=== PATIENT | female | born 1975 | race Caucasian/White ===

== ENCOUNTER 2016-07-08 09:34 | Emergency (ER) | payer BC ==
[2016-07-08 09:42] VITALS: TEMP 97.8
[2016-07-08] MEDS ORDERED: Acetaminophen-Codeine 300-30mg TAB PO STA (10:03)
[2016-07-08] MEDS ORDERED: RX INFO: IV CONTRAST WAS GIVEN 1 EACH MISC MISCELLANE PRN (11:50)
--- NOTE | 2016-07-08 12:14 | ED ---
General Adult HPI - General Chief complaint: Neck Pain/Injury Stated complaint: neck pain Time Seen by Provider: 07/08/16 09:49 Source: patient, RN notes reviewed Mode of arrival: ambulatory Limitations: no limitations - History of Present Illness Initial comments: 41-year-old female presents emergency Department chief complaint neck pain, sore throat. Patient states has been present since yesterday. Patient states difficult swallow. Patient denies fever, chills. Patient states that she notices sores in her mouth. Bit states primarily her pain is in her anterior neck. She denies any known thyroid disorder. Patient denies headache, dizziness, neck stiffness. - Related Data Home Medications Medication Instructions Recorded Confirmed Baclofen [Lioresal] 10 mg PO BID 07/08/16 07/08/16 DULoxetine HCL [Cymbalta] 60 mg PO BID 07/08/16 07/08/16 Ibuprofen [Motrin] 800 mg PO TID 07/08/16 07/08/16 Medroxyprogesterone Acetate 150 mg IM Q90D 07/08/16 07/08/16 [Depo-Provera] Modafinil [Provigil] 200 mg PO DAILY 07/08/16 07/08/16 Tysabri 1 applic IV DIRECTED 07/08/16 07/08/16 Zolpidem Tartrate 10 mg PO HS 07/08/16 07/08/16 Previous Rx's Medication Instructions Recorded Acetaminophen-Codeine 300-30mg 1 tab PO Q4H PRN #20 tablet 07/08/16 [Tylenol #3] Amoxicillin/Potassium Clav 1 tab PO Q12HR #20 tab 07/08/16 [Augmentin 875-125 Tablet] Allergies Allergy/AdvReac Type Severity Reaction Status Date / Time No Known Allergies Allergy Verified 07/08/16 13:09 Review of Systems ROS Statement: Those systems with pertinent positive or pertinent negative responses have been documented in the HPI. ROS Other: All systems not noted in ROS Statement are negative. Past Medical History Additional Past Medical History / Comment(s): MS History of Any Multi-Drug Resistant Organisms: None Reported Past Surgical History: No Surgical Hx Reported Past Psychological History: No Psychological Hx Reported Smoking Status: Current every day smoker Past Alcohol Use History: None Reported Past Drug Use History: None Reported General Exam Limitations: no limitations General appearance: alert, in no apparent distress Head exam: Present: atraumatic, normocephalic, normal inspection Eye exam: Present: normal appearance, PERRL, EOMI. Absent: scleral icterus, conjunctival injection, periorbital swelling ENT exam: Present: mucous membranes moist, TM's normal bilaterally. Absent: normal exam (Anterior neck swelling), normal oropharynx (Erythema, mild sores noted in posterior pharynx) Neck exam: Present: normal inspection, full ROM, lymphadenopathy. Absent: tenderness, meningismus Respiratory exam: Present: normal lung sounds bilaterally. Absent: respiratory distress, wheezes, rales, rhonchi, stridor Cardiovascular Exam: Present: regular rate, normal rhythm, normal heart sounds. Absent: systolic murmur, diastolic murmur, rubs, gallop, clicks Course Vital Signs 07/08/16 07/08/16 09:39 10:26 Temperature 97.8 F Pulse Rate 108 H 98 Respiratory 20 15 Rate Blood Pressure 138/79 141/76 O2 Sat by Pulse 100 98 Oximetry Medical Decision Making - Medical Decision Making 41-year-old female presented for , Sore throat. Patient appears to have submandibular lymph nodes on CT labwork with normal it's. Patient may have information of her salivary gland. Patient was started on Augmentin. Patient will be discharged follow-up with primary care physician. - Lab Data Result diagrams: 07/08/16 12:25 07/08/16 12:25 Lab Results 07/08/16 07/08/16 07/08/16 Range/Units 10:24 12:25 12:25 WBC 10.2 (3.8-10.6) k/uL RBC 4.19 (3.80-5.40) m/uL Hgb 13.9 (11.4-16.0) gm/dL Hct 40.4 (34.0-46.0) % MCV 96.5 (80.0-100.0) fL MCH 33.1 (25.0-35.0) pg MCHC 34.3 (31.0-37.0) g/dL RDW 15.0 (11.5-15.5) % Plt Count 202 (150-450) k/uL Neutrophils % 81 % Lymphocytes % 14 % Monocytes % 3 % Eosinophils % 2 % Basophils % 0 % Neutrophils # 8.2 H (1.3-7.7) k/uL Lymphocytes # 1.4 (1.0-4.8) k/uL Monocytes # 0.3 (0-1.0) k/uL Eosinophils # 0.2 (0-0.7) k/uL Basophils # 0.0 (0-0.2) k/uL Poikilocytosis Slight Sodium 143 (137-145) mmol/L Potassium 3.3 L (3.5-5.1) mmol/L Chloride 106 (98-107) mmol/L Carbon Dioxide 24 (22-30) mmol/L Anion Gap 13 mmol/L BUN 7 (7-17) mg/dL Creatinine 0.60 (0.52-1.04) mg/dL Est GFR (MDRD) Af Amer >60 (>60 ml/min/1.73 sqM) Est GFR (MDRD) Non-Af >60 (>60 ml/min/1.73 sqM) Glucose 94 (74-99) mg/dL Calcium 9.2 (8.4-10.2) mg/dL TSH 1.270 (0.465-4.680) mIU/L Group A Strep Rapid Negative (Negative) Disposition Clinical Impression: Sialadenitis, Submandibular lymphadenopathy, Acute pharyngitis Disposition: HOME SELF-CARE Condition: Stable Instructions: Sialoadenitis (ED) Additional Instructions: Please return to the Emergency Department if symptoms worsen or any other concerns. Prescriptions: Acetaminophen-Codeine 300-30mg [Tylenol #3] 1 tab PO Q4H PRN #20 tablet PRN Reason: pain Amoxicillin/Potassium Clav [Augmentin 875-125 Tablet] 1 tab PO Q12HR #20 tab Time of Disposition: 13:47
[2016-07-08] MEDS ORDERED: KETOROLAC 30 MG/ML 1 ML VIAL IVP STA (12:36)
[2016-07-08 12:44] LABS: Basophils % (A) 0 %; CH 34.3; CHCM 35.9; Eosinophils # (A) 0.2 k/uL (0-0.7); Eosinophils % (A) 2 %; HCT 40.4 % (34.0-46.0); HDW 3.49; HGB 13.9 gm/dL (11.4-16.0); Luc # (Auto) 0.12; Luc % (Auto) 1; Lymphocytes # (A) 1.4 k/uL (1.0-4.8); Lymphocytes % (A) 14 %; MCH 33.1 pg (25.0-35.0); MCHC 34.3 g/dL (31.0-37.0); MCV 96.5 fL (80.0-100.0); Mean Platelet Volume 7.7; Monocytes # (A) 0.3 k/uL (0-1.0); Monocytes % (A) 3 %; Neutrophils # (A) 8.2 k/uL (1.3-7.7); Neutrophils % (A) 81 %; Poikilocytosis Slight; RBC 4.19 m/uL (3.80-5.40); WBC 10.2 k/uL (3.8-10.6); WBC (Perox) 10.92
[2016-07-08 12:56] LABS: Anion Gap 13 mmol/L; Blood Urea Nitrogen 7 mg/dL (7-17); Calcium 9.2 mg/dL (8.4-10.2); Carbon Dioxide 24 mmol/L (22-30); Chloride 106 mmol/L (98-107); Glucose 94 mg/dL (74-99); Non-African American GFR(MDRD) >60 (>60 ml/min/1.73 sqM); Potassium 3.3 mmol/L (3.5-5.1); Sodium 143 mmol/L (137-145)
--- NOTE | 2016-07-08 13:38 | CT ---
EXAMINATION TYPE: CT soft tissue neck w con DATE OF EXAM: 07/08/2016 1:28 PM COMPARISON: NONE HISTORY: Neck pain and swelling CT DLP: 266.1 mGycm Automated exposure control for dose reduction was used. CONTRAST: CT scan of the neck is performed following with IV Contrast, patient injected with 100 mL of Omnipaqu e 300. Axial images are obtained, coronal and sagittal reformatted images are reviewed. FINDINGS: There is normal branching pattern of the great vessels on the aortic arch. There are probably multipl e tiny cysts in the thyroid gland. There is normal contrast opacification of carotid arteries and jug ular veins. Submandibular salivary glands are symmetric. There is minimal fluid surrounding the left submandibular salivary gland. Epiglottis is normal. There is no evidence of a pharyngeal mass. Subglo ttic trachea appears normal. Parotid glands are symmetric. The tonsils and adenoids are within normal limits. There are few bilateral submandibular lymph nodes that measure up to 1 cm. There is some mil d subcutaneous fluid lateral to the left submandibular lymph node. I see no bony destructive process. IMPRESSION: There is mild subcutaneous fluid on the left side of the neck and probably surrounding t he left-sided submandibular lymph node that could relate to inflammatory process. No salivary gland m ass seen.
[2016-07-08 14:00] VITALS: BP 139/69; PULSE 96; RESP 18
== END 2016-07-08 13:59 | disposition home or self-care (01) ==
LOC: EC 09:34
DX: K11.20 Sialoadenitis, unspecified (principal); J02.9 Acute pharyngitis, unspecified; R59.0 Localized enlarged lymph nodes; G35 Multiple sclerosis; F17.200 Nicotine dependence, unspecified, uncomplicated; Z79.899 Other long term (current) drug therapy; Z79.1 Long term (current) use of non-steroidal anti-inflammatories (NSAID)
CPT/HCPCS: 99284; 96374; 36415; 80048; 84443; 85025; 87081; 87430; 70491; J1885; Q9967

== ENCOUNTER 2016-07-09 09:48 | Inpatient (IN) | payer BC ==
[2016-07-09] MEDS ORDERED: MORPHINE SULFATE 4 MG/ML SYRINGE IV STA (10:18)
[2016-07-09] MEDS ORDERED: RX INFO: IV CONTRAST WAS GIVEN 1 EACH MISC MISCELLANE PRN (10:18)
[2016-07-09] MEDS ORDERED: CLINDAMYCIN 600 MG in DEXTROSE 5% IN WATER 50 ML IVPB STA ×2 (10:23)
--- NOTE | 2016-07-09 10:27 | ED ---
Neck Injury/Pain HPI - General Chief Complaint: Neck Pain/Injury Stated Complaint: neck pain Time Seen by Provider: 07/09/16 10:04 Source: patient, RN notes reviewed Mode of arrival: ambulatory Limitations: no limitations - History of Present Illness Initial Comments: Is a 41-year-old woman who presents with approximately 30 hours of anterior neck discomfort. She states that things started yesterday at 3 in the morning. She noticed what she is describing as a fullness to the anterior neck or throat. The patient was seen here having pharyngeal swab and computed tomography scan and was discharged with antibiotic and analgesia. The patient states that these things have not helped and if anything she feels a little bit worse today. The patient is denying change in speech, breathing, and she states she is still able to swallow. Patient does not believe she's had any fever or chills. No chest pain. She has a mild frontal headache. MD Complaint: neck pain Onset/Timin -: hour(s) Place: home Severity: severe Quality: aching Consistency: constant Improves With: none Worsens With: none Associated Symptoms: none - Related Data Home Medications Medication Instructions Recorded Confirmed Baclofen [Lioresal] 10 mg PO BID 07/08/16 07/09/16 DULoxetine HCL [Cymbalta] 60 mg PO BID 07/08/16 07/09/16 Ibuprofen [Motrin] 800 mg PO TID 07/08/16 07/09/16 Medroxyprogesterone Acetate 150 mg IM Q90D 07/08/16 07/09/16 [Depo-Provera] Modafinil [Provigil] 200 mg PO DAILY 07/08/16 07/09/16 Tysabri 1 applic IV Q28D 07/08/16 07/09/16 Zolpidem Tartrate 10 mg PO HS 07/08/16 07/09/16 Meloxicam [Mobic] 15 mg PO TID 07/09/16 07/09/16 Previous Rx's Medication Instructions Recorded Acetaminophen-Codeine 300-30mg 1 tab PO Q4H PRN #20 tablet 07/08/16 [Tylenol #3] Amoxicillin/Potassium Clav 1 tab PO Q12HR #20 tab 07/08/16 [Augmentin 875-125 Tablet] Allergies Allergy/AdvReac Type Severity Reaction Status Date / Time No Known Allergies Allergy Verified 07/09/16 13:03 Review of Systems ROS Statement: Those systems with pertinent positive or pertinent negative responses have been documented in the HPI. ROS Other: All systems not noted in ROS Statement are negative. Constitutional: Denies: fever, chills Eyes: Denies: eye pain, vision change ENT: Reports: as per HPI, throat pain. Denies: dental pain, congestion Respiratory: Denies: cough, dyspnea, wheezes, stridor Cardiovascular: Denies: chest pain, palpitations Gastrointestinal: Denies: abdominal pain, nausea, vomiting Musculoskeletal: Denies: back pain Skin: Denies: rash Neurological: Reports: as per HPI, headache Past Medical History Additional Past Medical History / Comment(s): MS History of Any Multi-Drug Resistant Organisms: None Reported Past Surgical History: No Surgical Hx Reported Past Psychological History: No Psychological Hx Reported Smoking Status: Current every day smoker Past Alcohol Use History: None Reported Past Drug Use History: None Reported - Past Family History Mother Family Medical History: Hypertension Additional Family Medical History / Comment(s): Heart stents Father Family Medical History: Cancer, Hypertension Additional Family Medical History / Comment(s): esophageal and rectal CA Brother(s) Additional Family Medical History / Comment(s): 2 brothers 1 has MS and 1 has sarcoidosis Sister(s) Additional Family Medical History / Comment(s): Lupus General Exam Limitations: no limitations General appearance: alert, in no apparent distress Head exam: Present: atraumatic, normocephalic Eye exam: Present: normal appearance. Absent: scleral icterus, conjunctival injection ENT exam: Present: mucous membranes moist, TM's normal bilaterally, normal external ear exam, other (Moderate caries to tooth #21.) Neck exam: Present: tenderness, full ROM, other (Patient has some erythema anteriorly and some submandibular fullness along with soft tissue tenderness.). Absent: normal inspection, meningismus Respiratory exam: Present: normal lung sounds bilaterally. Absent: respiratory distress, wheezes, rales, rhonchi, stridor Cardiovascular Exam: Present: regular rate, normal rhythm, normal heart sounds. Absent: systolic murmur, diastolic murmur, rubs, gallop GI/Abdominal exam: Present: soft. Absent: distended, tenderness, guarding, rebound Extremities exam: Present: normal inspection, normal capillary refill Back exam: Present: normal inspection. Absent: CVA tenderness (R), CVA tenderness (L) Neurological exam: Present: alert Skin exam: Present: warm, dry, intact, normal color, erythema (Submandibular). Absent: rash Course Vital Signs 07/09/16 07/09/16 09:50 13:11 Temperature 98.7 F 97.7 F Pulse Rate 103 H 93 Respiratory 20 20 Rate Blood Pressure 114/77 109/58 O2 Sat by Pulse 98 98 Oximetry Medical Decision Making - Medical Decision Making This patient is a 41-year-old woman who presents with increasing submandibular swelling and pain despite starting the outpatient antibiotics. Patient be admitted for failure of the oral treatment. Case discussed with Dr. Davis who is covering city call. He will admit the patient and we will also have consultation with oral surgery to see if extraction is required. Further history does reveal that the patient did have an abscess with MRSA located on her leg about 7 years ago. Will give a dose of vancomycin in light of this. - Lab Data Result diagrams: 07/11/16 07:54 07/11/16 07:54 Lab Results 07/09/16 07/09/16 Range/Units 10:30 10:30 WBC 21.6 H (3.8-10.6) k/uL RBC 4.50 (3.80-5.40) m/uL Hgb 14.8 (11.4-16.0) gm/dL Hct 43.0 (34.0-46.0) % MCV 95.7 (80.0-100.0) fL MCH 32.8 (25.0-35.0) pg MCHC 34.3 (31.0-37.0) g/dL RDW 15.4 (11.5-15.5) % Plt Count 217 (150-450) k/uL Neutrophils % (Manual) 64.0 % Band Neutrophils % 17.5 % Lymphocytes % (Manual) 7.5 % Monocytes % (Manual) 7.5 % Eosinophils % (Manual) 2.0 % Metamyelocytes % 1.0 % Myelocytes % 0.5 % Neutrophils # (Manual) 17.6 H (1.3-7.7) k/uL Lymphocytes # (Manual) 1.6 (1.0-4.8) k/uL Monocytes # (Manual) 1.6 H (0-1.0) k/uL Eosinophils # (Manual) 0.4 (0-0.7) k/uL Nucleated RBCs 0 (0-0) /100 WBC Manual Slide Review Performed Toxic Granulation Present RBC Morphology Normal Hyperchromasia Slight Poikilocytosis Slight ESR 21 H (0-20) mm/hr Sodium 144 (137-145) mmol/L Potassium 2.9 L* (3.5-5.1) mmol/L Chloride 106 (98-107) mmol/L Carbon Dioxide 23 (22-30) mmol/L Anion Gap 15 mmol/L BUN 10 (7-17) mg/dL Creatinine 0.89 (0.52-1.04) mg/dL Est GFR (MDRD) Af Amer >60 (>60 ml/min/1.73 sqM) Est GFR (MDRD) Non-Af >60 (>60 ml/min/1.73 sqM) Glucose 95 (74-99) mg/dL Calcium 9.5 (8.4-10.2) mg/dL Disposition Clinical Impression: Dental infection, Submandibular space infection Disposition: ADMITTED IP TO THIS HOSP Condition: Fair
[2016-07-09 10:49] LABS: CH 34.1; HGB 14.8 gm/dL (11.4-16.0); Hyperchromasia Slight; Immature Gran Flag Marked; MCH 32.8 pg (25.0-35.0); MCHC 34.3 g/dL (31.0-37.0); MCV 95.7 fL (80.0-100.0); Mean Platelet Volume 8.4; Poikilocytosis Slight; RDW 15.4 % (11.5-15.5); WBC 21.6 k/uL (3.8-10.6); WBC (Perox) 21.99
[2016-07-09 10:58] LABS: Anion Gap 15 mmol/L; Blood Urea Nitrogen 10 mg/dL (7-17); Calcium 9.5 mg/dL (8.4-10.2); Carbon Dioxide 23 mmol/L (22-30); Chloride 106 mmol/L (98-107); Glucose 95 mg/dL (74-99); Non-African American GFR(MDRD) >60 (>60 ml/min/1.73 sqM); Sodium 144 mmol/L (137-145)
[2016-07-09 11:01] LABS: Potassium 2.9 mmol/L (3.5-5.1)
[2016-07-09] MEDS ORDERED: POTASSIUM BICARB-CITRIC ACID 25 MEQ TABLET.EFF PO STA (11:05)
[2016-07-09 11:21] LABS: Add Differential Manual Differential
[2016-07-09 11:24] LABS: Band Neutrophils % 17.5 %; Manual Review Performed; Myelocytes % 0.5 %; Nucleated Red Blood Cells 0 /100 WBC (0-0); Total Cells Counted 200
[2016-07-09 11:25] LABS: RBC Morphology Normal; Toxic Granulation Present
[2016-07-09] MEDS ORDERED: ONDANSETRON 4 MG/2 ML VIAL IVP STA (11:33)
[2016-07-09 12:06] LABS: Erythrocyte Sedimentation Rate 21 mm/hr (0-20)
--- NOTE | 2016-07-09 12:28 | CT ---
EXAMINATION TYPE: CT soft tissue neck w con DATE OF EXAM: 07/09/2016 12:17 PM COMPARISON: 07/08/2016 HISTORY: neck swelling, pain and redness CT DLP: 274 mGycm CONTRAST: Patient injected with 100 mL of Omnipaque 300. TECHNIQUE: Axial images at 3 mm thick sections. Reconstructed images in the coronal plane and sagitt al plane are reviewed. FINDINGS: Limited CT sections are obtained the lung apices. The lung apices appear clear. CT neck: The torus tubarius and fossa of Rosenmuller are normal. Handle Turner spaces are normal. Para nasal sinuses and mastoid air cells are clear. Parotid glands appear normal and symmetrical. Submandibular glands, are normal. Parapharyngeal spac es are normal. No suspicious adenopathy is evident. The hypopharynx appears within normal limits. Vocal cord level appear symmetrical. There is hypodensity posterior to the hyoid on the left. This appears to be effacing the inferior por tion of the piriform sinus. No airway effacement is evident. A wall abscess is not evident. Early phl egmon formation could be considered. This is best visualized series 3 image 49. Thyroid as visualized is normal. Subglottic airway is normal Osseous structures are normal. Soft tissue swelling is in the submandibular and submental regions, greater on the left than the righ t. The platysmas appears normal. Small submental lymph nodes are present. No enlarged lymphadenopathy is evident. IMPRESSIONS: 1. Slight increase in superficial soft tissue swelling greater on the left submandibular region and s ubmental region. 2. Developing hypodensity posterior to the hyoid bone effacing the inferior piriform sinus. Developin g phlegmon could be considered.
[2016-07-09] MEDS ORDERED: NALOXONE 0.4 MG/ML 1 ML VIAL IV PRN (12:41)
[2016-07-09] MEDS ORDERED: ACETAMINOPHEN TAB 325 MG TAB PO PRN (12:41)
[2016-07-09] MEDS: MORPHINE SULFATE 4 MG/ML SYRINGE IV PRN ×2 (13:03→17:31)
[2016-07-09] MEDS: SODIUM CHLORIDE 0.9% 1,000 ML IV SCH (13:04)
[2016-07-09] MEDS ORDERED: IBUPROFEN 600 MG TAB PO STA (13:57)
[2016-07-09] MEDS ORDERED: IV VANCOMYCIN PER PHARMACY 1 EACH MISC MISCELLANE PRN (13:59)
[2016-07-09 14:43] VITALS: BMI 21.9
[2016-07-09] MEDS: VANCOMYCIN 1,250 MG in SODIUM CHLORIDE 0.9% 250 ML IVPB SCH (15:24)
[2016-07-09] MEDS: IBUPROFEN 800 MG TAB PO SCH ×2 (15:24→21:03)
[2016-07-09] MEDS ORDERED: Potassium Replacement Protocol 1 EACH MISC MISCELLANE PRN ×2 (19:08→19:54)
[2016-07-09] MEDS ORDERED: POTASSIUM CHLORIDE 10 MEQ in WATER FOR INJECTION 1 100ML.BAG IVPB SCH (19:15)
[2016-07-09] MEDS: CLINDAMYCIN 600 MG in DEXTROSE 5% IN WATER 50 ML IVPB SCH ×2 (19:43)
[2016-07-09] MEDS: DULoxetine HCL 60 MG CAPSULE.DR PO SCH (19:44)
[2016-07-09] MEDS: BACLOFEN 10 MG TAB PO SCH (19:44)
[2016-07-09] MEDS: FAMOTIDINE 20 MG TAB PO SCH (19:44)
[2016-07-09] MEDS: POTASSIUM CHLORIDE 10 MEQ in WATER FOR INJECTION 1 100ML.BAG IVPB SCH ×2 (21:02→21:28)
[2016-07-09] MEDS: ONDANSETRON 4 MG/2 ML VIAL IVP PRN (21:06)
[2016-07-09] MEDS: ZOLPIDEM 10 MG TAB PO SCH (21:06)
--- NOTE | 2016-07-09 21:27 | HP ---
DATE OF ADMISSION: 07/09/2016 CHIEF COMPLAINT: 41 -year-old white female with severe neck swelling and worsening ( ) over the last few days, ( ) CAT scan ( ) due to ( ) worsening of the ( ). Difficulty breathing and swallowing ( ). No fever. No chills. ( ) qualities is severe ( ) improving ( ). MEDICATIONS: 1. ( ) 10 mg b.i.d. 2. Cymbalta ( ). 3. ( ). 4. Motrin 800 t.i.d. 5. Depo-Provera 150 ( ). 6. Provigil 200 mg q.a.m. 7. ( ) one application ( ) IV every 28 days. 8. ( ). 9. ( ) b.i.d. Past medical history of multiple sclerosis and insomnia. Current every day smoker. No alcohol. No drugs. PHYSICAL EXAMINATION: ( ) white female with obvious neck swelling. ( ) over the thyroid area and submandibular fullness ( ) soft tissue tenderness, ( ) lateral neck, ( ) amount of swelling in the ( ) neck about 2 to 3 cm thick in depth, ( ) the entire size of the anterior neck. I do not hear any wheezes, rales or stridor. CARDIOVASCULAR: Regular rate and rhythm. ABDOMEN: Soft. EXTREMITIES: No cyanosis, clubbing, edema. NEUROLOGIC: Alert and oriented x3. SKIN: Shows warmth and redness anterior neck area, otherwise negative. VASCULAR: ( ). LABS: ( ), 0.8, ( ) 144, potassium 2.9, BUN and creatinine ( ) 0.89. ASSESSMENT: 1. Dental infection ( ) submandibular space infection, severe cellulitis ( ) anterior neck. 2. Multiple sclerosis. 3. Nicotine addiction. ( ). Consult ENT. ( ) is being done. Please see further orders.
[2016-07-09] MEDS: POTASSIUM CHLORIDE 10 MEQ, LIDOCAINE 2% INJ 10 MG in SODIUM CHLORIDE 0.9% 100 ML IVPB SCH ×2 (22:08→23:10)
[2016-07-10] MEDS: VANCOMYCIN 1,250 MG in SODIUM CHLORIDE 0.9% 250 ML IVPB SCH ×2 (00:12→12:02)
[2016-07-10] MEDS: CLINDAMYCIN 600 MG in DEXTROSE 5% IN WATER 50 ML IVPB SCH ×6 (04:09→20:37)
[2016-07-10] MEDS: MORPHINE SULFATE 4 MG/ML SYRINGE IV PRN ×5 (04:14→23:41)
[2016-07-10] MEDS: ONDANSETRON 4 MG/2 ML VIAL IVP PRN (04:14)
[2016-07-10 07:36] LABS: AST 55 U/L (14-36); Alkaline Phosphatase 104 U/L (38-126); Anion Gap 11 mmol/L; Blood Urea Nitrogen 14 mg/dL (7-17); Carbon Dioxide 20 mmol/L (22-30); Chloride 110 mmol/L (98-107); Glucose 90 mg/dL (74-99); Non-African American GFR(MDRD) >60 (>60 ml/min/1.73 sqM); Sodium 141 mmol/L (137-145); Total Bilirubin 0.8 mg/dL (0.2-1.3); Total Protein 5.2 g/dL (6.3-8.2)
[2016-07-10 07:41] LABS: ALT 71 U/L (9-52)
[2016-07-10 07:44] LABS: Potassium 2.8 mmol/L (3.5-5.1)
[2016-07-10] MEDS ORDERED: Potassium Replacement Protocol 1 EACH MISC MISCELLANE PRN (07:50)
[2016-07-10 08:12] LABS: Basophils # (A) 0.1 k/uL (0-0.2); Basophils % (A) 0 %; CH 33.9; Eosinophils # (A) 0.3 k/uL (0-0.7); Eosinophils % (A) 2 %; HCT 38.2 % (34.0-46.0); HDW 3.84; HGB 12.9 gm/dL (11.4-16.0); Luc % (Auto) 2; Lymphocytes # (A) 1.6 k/uL (1.0-4.8); Lymphocytes % (A) 12 %; MCH 33.1 pg (25.0-35.0); MCHC 33.8 g/dL (31.0-37.0); Macrocytosis Slight; Mean Platelet Volume 7.9; Monocytes # (A) 0.6 k/uL (0-1.0); Monocytes % (A) 4 %; Neutrophils # (A) 10.8 k/uL (1.3-7.7); Neutrophils % (A) 79 %; Poikilocytosis Slight; RDW 15.7 % (11.5-15.5); WBC 13.6 k/uL (3.8-10.6); WBC (Perox) 14.11
[2016-07-10] MEDS: IBUPROFEN 800 MG TAB PO SCH ×3 (08:39→21:26)
[2016-07-10] MEDS: DULoxetine HCL 60 MG CAPSULE.DR PO SCH ×2 (08:40→21:25)
[2016-07-10] MEDS: FAMOTIDINE 20 MG TAB PO SCH ×2 (08:40→21:25)
[2016-07-10] MEDS: BACLOFEN 10 MG TAB PO SCH ×2 (08:40→21:25)
[2016-07-10] MEDS: POTASSIUM CHLORIDE 10 MEQ in WATER FOR INJECTION 1 100ML.BAG IVPB SCH ×2 (08:41→10:33)
[2016-07-10] MEDS: MODAFINIL 200 MG TAB PO SCH (08:45)
--- NOTE | 2016-07-10 13:47 | HP ---
DATE OF ADMISSION: CHIEF COMPLAINT: A 41-year-old white female with extreme swelling and redness to the anterior neck. HISTORY OF PRESENT ILLNESS: This is 41-year-old white female who was seen in the ER one day prior to admission and was sent home on antibiotics. She came back in because she had difficulties with panic and due to is thickness and fullness in her throat, difficulty breathing. She failed outpatient analgesia and antibiotics. She was admitted with severe swelling and redness across the entire anterior part of her neck and throat area, radiating down to her left shoulder with the redness, difficulty swallowing. She has a history of migraines, frontal headaches and multiple sclerosis, severe in quality, aching, constant pain is 4/9, did not improve and worse with nothing. HOME MEDICATIONS: 1. Lioresal. 2. Cymbalta. 3. Motrin. 4. Depo-Provera. 5. Provigil. 6. Mobic. Allergies are negative. She is a current every day smoker. No alcohol. No illicit drugs. PHYSICAL EXAM: Vital signs are reviewed. CARDIOVASCULAR: S1 and S2. LUNGS: Transmitted breath sounds. GI: Soft. HEMATOLOGIC: Negative Homans. PSYCH: Fair mood and affect. Integument shows anterior swelling entire thyroid area across the entire neck about 3 or 4 inches high, 3 inches in depth across the entire neck and redness, swelling with the redness and warmth, minimum palpation of the ( ). Extreme pain. CAT scans were reviewed. She appears to be breathing okay at this time. No stridor was heard on the lungs. CARDIOVASCULAR: S1 and S2 without any murmurs, rubs, gallops. GI: Soft, nontender. MUSCULOSKELETAL: She has 4/5 strength x4. NEUROLOGIC: Alert and oriented x3. Temperature 97 to 98, pulse rate 93 to 103, respiratory rate 18 to 20, blood pressure is 109 to 114/58 to 77, 02 is 98% on room air. White count is 21.6, potassium low at 2.9, hemoglobin 14.8, BUN 10, creatinine 0.89. ASSESSMENT: Multiple sclerosis, severe hypokalemia, severe cellulitis and soft tissue swelling, rule out abscess of the neck. Vancomycin and Cleocin were given IV. Hypokalemia is being replaced. Awaiting physician from ENT to go see her. Continue with current treatments. Will get Dr. Toscano to see her for infection.
--- NOTE | 2016-07-10 13:56 | XR ---
EXAMINATION TYPE: XR panorex DATE OF EXAM: 07/10/2016 1:19 PM COMPARISON: 07/09/2016 HISTORY: Soft tissue swelling possible abscess or osteomyelitis TECHNIQUE: Single Panorex view of the mandible submitted FINDINGS: Osseous structures are intact. Evidence of previous dental work. Dental caries involving th e premolar on the left suspected. There is no evidence of acute fracture. No destructive change. IMPRESSION: 1. No diagnostic evidence of osteomyelitis
[2016-07-10] MEDS ORDERED: DEXAMETHASONE SOD PHOSPHATE 10 MG/ML 1 ML VIAL IM SCH (15:00)
--- NOTE | 2016-07-10 15:13 | P.PN ---
Subjective 41-year-old female being seen by the attending this morning. Patient initial presentation to the emergency room after noting extreme swelling and redness to the anterior part of the neck. Patient stated that she was seen in the emergency room earlier and was given antibiotics came back in because there was increased pain. Patient was admitted with severe swelling and redness along the entire anterior part of her neck and throat area radiating down to the left shoulder. There is a consult pending ENT Objective - Vital Signs Vital signs: Vital Signs Temp 98.1 F 07/10/16 07:29 Pulse 91 07/10/16 07:29 Resp 16 07/10/16 07:29 BP 117/56 07/10/16 07:29 Pulse Ox 95 07/10/16 07:29 Intake & Output 07/09/16 07/10/16 07/10/16 18:59 06:59 18:59 Weight 63.5 kg Other: Voiding Method Toilet # Voids 1 2 - Exam Physical exam 41-year-old female sitting up in bed does have a significant amount of soft tissue swelling on the left submandibular region patient states uncomfortable Lungs essentially clear adequate air movement Heart S1-S2 audible and regular Abdomen soft nontender Extremities no edema - Labs CBC & Chem 7: 07/10/16 06:54 07/10/16 06:54 Labs: Abnormal Lab Results - Last 24 Hours (Table) 07/10/16 07/10/16 Range/Units 06:54 06:54 WBC 13.6 H (3.8-10.6) k/uL RDW 15.7 H (11.5-15.5) % Neutrophils # 10.8 H (1.3-7.7) k/uL Potassium 2.8 L* (3.5-5.1) mmol/L Chloride 110 H (98-107) mmol/L Carbon Dioxide 20 L (22-30) mmol/L Calcium 8.0 L (8.4-10.2) mg/dL AST 55 H (14-36) U/L ALT 71 H (9-52) U/L Total Protein 5.2 L (6.3-8.2) g/dL Albumin 2.8 L (3.5-5.0) g/dL Assessment and Plan Plan: Impression Present on admission soft tissue swelling on the left-sided submandibur region Failed outpatient treatment antibiotics for soft tissue swelling possible abscess involving the neck History of multiple sclerosis Present on admission severe hypokalemia corrected Current every day smoker greater than 20 year history 1 pack a day with probable COPD Plan Potassium to be replaced and corrected ENT eval Resume home meds DVT and GI prophylaxis Further recommendations pending The above dictated assessment and findings were discussed with dr ivan . Impression and the plan of care have been dictated as directed. Birgit Sarmiento nurse practitioner acting as a scribe for dr ivan .
[2016-07-10] MEDS: DEXAMETHASONE SOD PHOSPHATE 10 MG/ML 1 ML VIAL IV SCH ×2 (15:52→19:24)
[2016-07-10] MEDS: SODIUM CHLORIDE 0.9% 1,000 ML IV SCH (16:11)
--- NOTE | 2016-07-10 17:18 | P.CON ---
Consult Note - . Consult date: 07/10/16 Assessment/Plan:: Chief complaint history of present illness patient presented to the emergency room on Sunday with neck pain originating from the left jaw. Tested for strep throat noted patient had a broken tooth recommended follow-up with her dentist given a prescription for Augmentin outpatient. Patient came back the next day complaining of worsening pain. Swelling in the neck with difficulty swallowing. Admitted to the floor started on IV vancomycin and IV clindamycin patient doesn't report any improvement in the pain or the swelling. Past medical history positive for degenerative disc disease and multiple pole sclerosis. also history of MRSA Medications on chart. NO KNOWN DRUG ALLERGIES. Limited physical exam noted to have dissuse swelling submandibular area and submental area some fluctuance. redness in the left neck extending to the clavicle and up to the ear. Noted patient has maximum incisal opening of approximately 20 mm with trismus intraoral exam is difficult very very tender so hard to ascertain any salivary flow. Appears to have broken teeth numbers 19 and 20. No airway compromise no formal swelling at this time. Computed tomography scan reviewed noted to have hypodensity adjacent to the left mandible in the area of the molar roots on the lingual side could represent an abscess. Assessment gross decay of teeth with possible abscess in the neck. Due to the difficulty the exam this submandibular gland infection cannot be ruled out. Plan patient to the operating room and examined her under anesthesia extract indicated decayed teeth possibly perform an incision and drainage if fluctuance is noted. Also attempt to get salivary flow from the left submandibular salivary gland.
[2016-07-10] MEDS ORDERED: LACTATED RINGERS 1,000 ML IV ONE (17:33)
[2016-07-10] MEDS ORDERED: MIDAZOLAM 2 MG/2 ML VIAL ONE (17:37)
[2016-07-10] MEDS ORDERED: fentaNYL (PF) 50 MCG/ML 2 ML AMP ONE (17:37)
[2016-07-10] MEDS ORDERED: GLYCOPYRROLATE 0.2 MG/ML 2 ML VIAL ONE (17:37)
[2016-07-10] MEDS ORDERED: DEXAMETHASONE SOD PHOS (MDV) 100 MG/10 ML VIAL ONE (17:37)
[2016-07-10] MEDS ORDERED: NEOSTIGMINE 1 MG/ML 10 ML VIAL ONE (17:37)
[2016-07-10] MEDS ORDERED: PROPOFOL 10 MG/ML 20 ML VIAL IV ONE (17:37)
[2016-07-10] MEDS ORDERED: ROCURONIUM BROMIDE 10 MG/ML 10 ML VIAL IV ONE (17:37)
[2016-07-10] MEDS ORDERED: BUPIVACAIN-EPI 0.25%-1:200,000 30 ML VIAL SQ ONE (18:20)
--- NOTE | 2016-07-10 18:58 | P.OP ---
Date of Procedure: 07/10/16 Preoperative Diagnosis: submandibular abcess left neck Dental decay teeth 19 and 20 Postoperative Diagnosis: Same Procedure(s) Performed: I and D of left submndibular space Surgical extraction 19 and 20 Anesthesia: ANY Surgeon: Jayme Lawler Estimated Blood Loss (ml): 5 IV fluids (ml): 500 Urine output (ml): 0 Pathology: other (aerobic and Anerobic cultures and sentivity) Condition: stable Disposition: floor Indications for Procedure: Not responding to outpatient antibotic therapy, addmited yesterday for IV antibotic therapy. slowly responding but continued to have severe pain and airway distress. Consent reviewed with mother and patient NLT Bleeding, pain ,worseing infection , swelling, nerve damage, scarring and additional procedures Operative Findings: none Description of Procedure: Awake fiberoptic intubation per the record. prepped and draped for extraoral inscion and palpation of the neck reveled fluctuating swelling above the submandubular gland adjacent to the inferior border of the mandible. 1 cm inscion in the skin fold 1 cm inferior to the neck swelling and blunt discection with a hemostat to the inferior border of the mandiblle. 2cc of watery brown pus cultured and 60 cc of NS irrigation. 1-4 inch manisha drain placed to 5 cm starting lingual to tooth 19 in mandibular vestibule sutured with 3-0 silk to skin. next the oral cavity was examied and spontanios drage on the lingual of 19 area was noted. the drain was not seen. 3 ml of 0.25% marcaine was administered and throat pack and bite block used. teeth 19 and 20 were removed after slight bone removal in a surgical manner. 60 ml of NS irrigated in spontious opening and in sockets. throat pack removed and gauze packing over sockets and on neck drain. return to floor with same orders. HOB elevated 30 degrees. plan to revaluate in am for improvement.
[2016-07-10] MEDS ORDERED: MORPHINE SULFATE 4 MG/ML SYRINGE IVP ONE (19:21)
[2016-07-10] MEDS ORDERED: HYDROmorphone 1 MG/ML 1 ML SYRINGE IVP ONE ×2 (19:37→19:46)
[2016-07-10] MEDS: ZOLPIDEM 10 MG TAB PO SCH (21:25)
[2016-07-10] MEDS ORDERED: VANCOMYCIN TROUGH DUE 1 EACH MISC MISCELLANE ONE (23:00)
[2016-07-11] MEDS ORDERED: DEXAMETHASONE SOD PHOSPHATE 10 MG/ML 1 ML VIAL IV SCH
[2016-07-11] MEDS: VANCOMYCIN 1,250 MG in SODIUM CHLORIDE 0.9% 250 ML IVPB SCH ×3 (00:52→16:18)
[2016-07-11] MEDS: CLINDAMYCIN 600 MG in DEXTROSE 5% IN WATER 50 ML IVPB SCH ×2 (03:59)
[2016-07-11] MEDS: MORPHINE SULFATE 4 MG/ML SYRINGE IV PRN ×5 (03:59→19:01)
--- NOTE | 2016-07-11 06:00 | CONS ---
DATE OF CONSULTATION: 07/10/2016 Date of admission is 07/09/2016. REASON FOR CONSULTATION: Neck cellulitis/possible abscess?. HISTORY OF PRESENT ILLNESS: The patient is a pleasant 41-year-old female who was originally admitted via the emergency center at [facility] on 07/09/2016 complaining of a history of increasing neck swelling and discomfort/pain beginning approximately 2 days prior to presenting to the emergency room. The patient states that she was awakened during the night at that time experienced pain in the neck, but was not able to localize the exact position. She denied any difficulty breathing., swallowing, handling her secretion, cough or ear pain. She does have a history of smoking 1 pack of cigarettes per day, but is currently trying to quit. She denied any history of any recent upper respiratory tract infection. The swelling initially began on the left side of the neck, but has since that time extended to the anterior side of the neck on slightly to the right side and extending down into the left shoulder/left supraclavicular area. The patient states that she is experiencing some degree of difficulty opening her mouth (trismus). She states it is not because of severe pain that she cannot open the mouth it is simply that the muscles do not seem to want to work. She has had some difficulty eating for this reason. At the time that that she was seen in the emergency room, a throat swab was performed and this was negative for any type of strep; however, a CT scan was performed and the patient was discharged on antibiotic treatment, namely Augmentin and analgesia; however, the very next day she felt that things had not improved and therefore she presented again at the emergency room and at this time as she described the symptoms had progressed and it was felt at that time that it would be best that she be admitted because the CAT scan did show evidence of extensive swelling in the region of the left submandibular gland with possible phlegmon but not evidence of an actual abscess. Past medical history reveals the patient has no known allergies to medications. She is on numerous medications that include zolpidem tartrate, Tysabri, Mobic, Provigil, Depo-Provera, Motrin, Cymbalta, and Lioresal. REVIEW OF SYSTEMS: The only positive system in review of systems is the neurologic system in that the patient does have a history of multiple sclerosis. PHYSICAL EXAMINATION: This patient is a 41-year-old female who is alert and cooperative and is in no acute distress at this time. She is resting comfortably. HEENT EXAMINATION: Patient is normocephalic. Tympanic membranes normal. Middle ear spaces are free of any fluid or infection. Pupils equal, round, and reactive to light and accommodation. Extraocular movements are within normal limits. Intranasal examination reveals moderate to severe septal deviation with bilateral compensatory hypertrophy of the inferior turbinates. Examination of the oropharynx does not reveal any soft tissue swelling of the floor of the mouth; however, the patient is limited with regards to her ability to open the mouth suggesting moderate to severe trismus. Palpation of the neck reveals that the patient does have discomfort and tenderness but no point tenderness, erythema or fluctuance. There is soft tissue edema which extends from the left neck across the midline of the anterior neck but does not appear to be compromising the airway. In addition to this, the soft tissue swelling extends down slightly into the left supraclavicular area. In respect to the oropharynx, inspection of the teeth reveals the patient has extensive teeth in a poor state of dental repair. On the left lower mandible, there are 2 teeth in particular, one that is completely broken off and another one that has multiple caries and both appear to be totally devitalized. Palpation around these areas does not elicit any pain. I also do not see any swelling of the gums or of the floor of the mouth. This is highly suspicious of possible early periapical abscess/with resulting cellulitis. The patient has been seen by Dr. Lawler and apparently he has plans on extracting these 2 teeth and possibly other teeth later on today. The patient definitely has an elevated white count suggesting an infectious process going on. Cranial nerves 2 through 12 and the remainder of the head and neck exam is essentially unremarkable. CHEST/CARDIOVASCULAR: Both lung rodrigues are clear to percussion and auscultation. Patient is in regular sinus rhythm. S1 and S2 are present without any murmurs, S3s or S4s. The remainder of physical exam is essentially unremarkable. IMPRESSION: 1. Left neck/left anterior neck cellulitis most likely secondary to dental infectious process of the left rear molars. 2. Moderate to severe trismus. 3. Fibromyalgia. PLAN: At this point, the standard treatment for this condition is to extract the offending teeth, which will allow the area to drain and also will remove the nidus of the infection, that is to say it would eliminate the source of the infection. In addition to this, I suggested she could be continued on her current course of clindamycin and vancomycin. In addition to this, I will add a good anti-inflammatory steroid that we use quite commonly in the head and neck in the ENT specialty, namely Decadron (dexamethasone) with a schedule as follows: Decadron 10 mg IV q.6 x2 doses, followed by Decadron 5 mg q.6 x2 doses then stop. Although this will elevate her white count, it should certainly reduce the swelling and the edema of the neck. Decadron is a much better choice for anti-inflammatory use, especially in the head and neck, versus methylprednisolone, prednisone or even Solu-Medrol or Solu-Cortef, mainly because of its greater anti-inflammatory properties. I will follow this patient with you. I want to take this opportunity to thank you for allowing me to assist you in the care of this patient and if I can be of any further assistance, please feel free to call my office.
[2016-07-11] MEDS: DEXAMETHASONE SOD PHOSPHATE 10 MG/ML 1 ML VIAL IV SCH ×2 (06:16→16:29)
[2016-07-11 08:16] LABS: Basophils % (A) 0 %; CH 33.7; CHCM 34.9; Eosinophils % (A) 0 %; HCT 38.9 % (34.0-46.0); HDW 3.97; HGB 12.9 gm/dL (11.4-16.0); Luc # (Auto) 0.27; Luc % (Auto) 1; Lymphocytes # (A) 1.1 k/uL (1.0-4.8); Lymphocytes % (A) 5 %; MCH 32.5 pg (25.0-35.0); MCHC 33.3 g/dL (31.0-37.0); MCV 97.6 fL (80.0-100.0); Macrocytosis Slight; Mean Platelet Volume 7.4; Monocytes # (A) 0.4 k/uL (0-1.0); Monocytes % (A) 2 %; Neutrophils # (A) 19.6 k/uL (1.3-7.7); Neutrophils % (A) 92 %; Poikilocytosis Slight; RBC 3.99 m/uL (3.80-5.40); RDW 15.8 % (11.5-15.5); WBC 21.3 k/uL (3.8-10.6); WBC (Perox) 22.81
[2016-07-11 08:31] LABS: ALT 53 U/L (9-52); AST 27 U/L (14-36); Alkaline Phosphatase 99 U/L (38-126); Anion Gap 12 mmol/L; Blood Urea Nitrogen 16 mg/dL (7-17); Calcium 8.4 mg/dL (8.4-10.2); Carbon Dioxide 19 mmol/L (22-30); Chloride 110 mmol/L (98-107); Glucose 123 mg/dL (74-99); Non-African American GFR(MDRD) >60 (>60 ml/min/1.73 sqM); Potassium 3.3 mmol/L (3.5-5.1); Sodium 141 mmol/L (137-145); Total Bilirubin 0.7 mg/dL (0.2-1.3); Total Protein 5.4 g/dL (6.3-8.2)
[2016-07-11] MEDS: FAMOTIDINE 20 MG TAB PO SCH ×2 (10:57→20:39)
[2016-07-11] MEDS: BACLOFEN 10 MG TAB PO SCH ×3 (10:57→20:39)
[2016-07-11] MEDS: IBUPROFEN 800 MG TAB PO SCH ×4 (10:57→21:05)
[2016-07-11] MEDS: DULoxetine HCL 60 MG CAPSULE.DR PO SCH ×3 (10:57→20:39)
[2016-07-11] MEDS: MODAFINIL 200 MG TAB PO SCH (10:57)
--- NOTE | 2016-07-11 13:15 | PN ---
Subjective: A 41-year-old white female status post 2 lower teeth removed with drainage tube to her gum into her chin which is draining. The redness and swelling is greatly improved. Since yesterday she remains on clindamycin through the IV as well as vancomycin. She is much better than yesterday, less swelling and less redness in the neck area. Temperature 98, pulse 91 to 97, respiratory rate 16 to 18, blood pressure 120s to 130s over 60s to 70s. CARDIOVASCULAR: S1, S2. LUNGS: Clear. GI: Soft. ENT: Decreased redness and swelling in the chin area. PLAN: Continue current IV antibiotics for the next 2 days. As the redness and swelling go down, the tube through the chin will be removed for the drainage tube. Her home medications for multiple sclerosis, etc., will be continued to be given. White count is up to 21.3 today and possibly exacerbated by Surgery as clinically she is much improved. Will monitor her potassium on a daily basis. She has had hypokalemia for unclear etiology.
[2016-07-11] MEDS: AMPICILLIN-SULBACTAM 3 GM in SODIUM CHLORIDE 0.9% 100 ML IVPB SCH ×3 (16:30→23:00)
--- NOTE | 2016-07-11 17:12 | PN ---
SUBJECTIVE: Patient is one day postoperative excision and drainage of the left neck abscess as well as extraction surgically of teeth numbers 19 and 20. She is sitting up in bed comfortably, 2 family members at the bedside. She is in good spirits, alert and oriented x3. She has had sips of water without difficulty and is requesting food. OBJECTIVE: Her swelling on her neck appears to be diminished by approximately 20%. Markings on her neck that were placed yesterday at the line of erythema show that the erythematous patch has receded. The nurse does not report much drainage, but there is evidence of serosanguineous discharge on the dressing over the Jennifer drain. Intraorally her mouth opening is improving approximately 20 mm. She has a clot over 19 and 20 extraction socket with no floor or mouth swelling at this time. ASSESSMENT: The patient is responding well to postoperative period. PLAN: It is okay for patient to take a shower. Warm/hot soapy water on the side of the neck would help ( ) and encourage drainage. Warm compresses on the neck are to continue. She ( ) stretching ( ) exercises were demonstrated and encouraged. Agree with the change in the antibiotics to Unasyn. Awaiting culture results.
--- NOTE | 2016-07-11 18:01 | CONS ---
DATE OF CONSULTATION: 07/11/2016 REASON FOR CONSULTATION: Neck abscess. HISTORY OF PRESENT ILLNESS: The patient is a 41-year-old female who started having a problem with anterior neck pain over the weekend. The patient initially presented to the [facility] ER on July 08, when the patient was diagnosed with possible strep throat, though the strep test was negative. She was discharged home on [place] only and Augmentin. However, within 30 hours the patient presented back with more swelling and pain to the anterior neck area. She did have some sharp pain, about 7 to 8 out of 10, and no radiation. The patient denies any difficulty swallowing or difficulty breathing. Along with fever and chills and these symptoms, the patient was elevated by the ER physician. The patient did have a CT of the neck which showed slightly decreased soft tissue swelling, greater on the left submandibular region and submental region; developing hypodensity posterior to the hyoid bone, effacing the inferior piriform sinus. Developing phlegmon could be considered. Subsequently patient has been evaluated by Dr. Lawler. The patient did have I&D of the left submandibular space. Culture has been obtained. Patient is being treated with clindamycin and vancomycin. I was asked to see the patient for further recommendations regarding antibiotic therapy. REVIEW OF SYSTEMS: CONSTITUTIONAL: Positive for weakness, fevers and chills; however, no fever has been recorded at this hospital. EYES: No complaint. ENT: As per HPI. RESPIRATORY: No complaint. CARDIOVASCULAR: No complaint. GENITOURINARY: No complaint. GASTROINTESTINAL: No complaint. MUSCULOSKELETAL: No complaint. INTEGUMENTARY: As per HPI. PSYCHOLOGICAL: No complaint. ENDOCRINE: No complaint. NEUROLOGIC: No complaint. Past medical history is significant for MS. PAST SURGICAL HISTORY: No major surgery. SOCIAL HISTORY: Patient is currently an everyday smoker. Denies drinking or drug use. FAMILY HISTORY: No pertinent findings were noticed. ALLERGIES: NO KNOWN DRUG ALLERGIES. Medications include: 1. Tylenol. 2. Clindamycin. 3. Baclofen. 4. Cymbalta. 5. Pepcid. 6. Motrin. 7. Morphine sulfate. 8. Narcan. 9. Zofran. 10. Vancomycin. 11. Ambien. On examination, blood pressure is 130/69 with a pulse of 97, temperature 98. She is 97% on room air. General description is a middle-aged female up in the bed in no distress. No tachypnea or accessory muscle of respiration use. HEENT examination showed no pallor or scleral icterus. Oral mucosal membrane is moist. Poor dentition on the left side. No significant erythema. NECK: The packing in the I&D area has slight drainage. LUNGS: Unlabored breathing. Clear to auscultation anteriorly. HEART: S1, S2. Regular rate and rhythm. ABDOMEN: Soft. No tenderness. EXTREMITIES: No edema of feet. Neurologically patient is awake, alert, oriented x3. Mood and affect normal. LABS: Hemoglobin is 12.9, white count 21.3 with a BUN of 16, creatinine 0.79. Blood and wound cultures are currently pending. DIAGNOSTIC IMPRESSION AND PLAN: Patient with anterior neck abscess, status post drainage. The source would be more likely the lower teeth on the left side which show decay. Status post drainage of this abscess, plan to continue patient on oral antibiotic therapy. More likely secondary to the oral polymicrobial alec, including for positives both aerobes and anaerobes. PLAN: 1. Discontinue the clindamycin. 2. Start the patient on Unasyn 3 grams q.6. 3. Continue the patient on vancomycin. 4. Will follow up on the clinical condition and cultures to further adjust medication if needed. Thank you for this consultation. Will continue to follow this patient along with you.
[2016-07-11] MEDS: SODIUM CHLORIDE 0.9% 1,000 ML IV SCH (19:26)
[2016-07-11] MEDS: ZOLPIDEM 10 MG TAB PO SCH (20:42)
[2016-07-12] MEDS: VANCOMYCIN 1,250 MG in SODIUM CHLORIDE 0.9% 250 ML IVPB SCH ×3 (00:08→15:48)
[2016-07-12] MEDS: MORPHINE SULFATE 4 MG/ML SYRINGE IV PRN ×4 (02:05→14:31)
[2016-07-12] MEDS: AMPICILLIN-SULBACTAM 3 GM in SODIUM CHLORIDE 0.9% 100 ML IVPB SCH ×4 (05:05→23:15)
--- NOTE | 2016-07-12 06:12 | PN ---
DATE OF SERVICE: 07/11/2016 SUBJECTIVE: Vital signs are stable. The patient is status post extraction of 2 lower devitalized carious molars which were the source of her abscess and in addition to this Dr. Lawler did an I&D of the neck portion of the abscess and placed a Jennifer drain in it, which he will advance in the usual fashion. The patient states that she feels much better and the swelling has gone down significantly especially the swelling over her anterior neck. She does not feel she is having any difficulty breathing or swallowing at this time. I advised the patient that I had left a prescription for Chantix for her to fill with multiple refills in an effort to help her to quit smoking. At this point, she states that she has no somatic complaints and she just feels very good. OBJECTIVE: Examination of oropharynx reveals the site of extractions which appears to be unremarkable. She has a dressing on her neck with an intact [place] dressing and the dressing at this point is dry and free of any bloody or purulent drainage and therefore it was not disturbed. The remainder of physical exam is unremarkable. ASSESSMENT: Left deep neck abscess secondary to multiple dental caries of the posterior molar teeth of the real molar teeth of the mandible on the left, status post I&D drainage of neck abscess by Dr. Lawler. PLAN: At this point, I see no need for any further ENT intervention and Dr. Lawler will make the decision when the patient can go home most likely whenever he removes the [place] drain. I suggest that they continue on the current course of the 2 antibiotics that she is currently on including the aminoglycoside. Certainly once she is discharged she could be discharged on an excellent broad-spectrum antibiotic which would cover the usual organisms, namely Augmentin, 875 b.i.d. for a period of approximately 10 days. I do not feel regular Pen-V, Zithromax or Biaxin would be appropriate and although Cleocin could be used, I think that the potential side effects are not warranted in this case. The offending agent or agents causing the abscess have been removed and therefore this process should resolve quite speedily. I will now sign off of this patient, but feel free to consult my office again if in fact my services are needed. Again, I want to take this opportunity to thank you for allowing me to participate in the care of your patient. We spent approximately 15 minutes with this patient answering her questions and examining her, etc.
[2016-07-12 07:26] LABS: ALT 43 U/L (9-52); AST 15 U/L (14-36); Alkaline Phosphatase 80 U/L (38-126); Anion Gap 9 mmol/L; Blood Urea Nitrogen 16 mg/dL (7-17); Calcium 8.4 mg/dL (8.4-10.2); Carbon Dioxide 22 mmol/L (22-30); Chloride 111 mmol/L (98-107); Glucose 103 mg/dL (74-99); Non-African American GFR(MDRD) >60 (>60 ml/min/1.73 sqM); Potassium 3.4 mmol/L (3.5-5.1); Sodium 142 mmol/L (137-145); Total Bilirubin 0.5 mg/dL (0.2-1.3); Total Protein 4.9 g/dL (6.3-8.2)
[2016-07-12] MEDS: BACLOFEN 10 MG TAB PO SCH ×2 (07:49→20:28)
[2016-07-12] MEDS: IBUPROFEN 800 MG TAB PO SCH ×3 (07:49→21:52)
[2016-07-12] MEDS: DULoxetine HCL 60 MG CAPSULE.DR PO SCH ×2 (07:50→20:28)
[2016-07-12] MEDS: FAMOTIDINE 20 MG TAB PO SCH ×2 (07:50→20:28)
[2016-07-12 08:41] LABS: Basophils # (A) 0.1 k/uL (0-0.2); Basophils % (A) 1 %; CH 33.5; CHCM 34.5; Eosinophils % (A) 0 %; HCT 33.2 % (34.0-46.0); HDW 3.93; HGB 11.3 gm/dL (11.4-16.0); Luc # (Auto) 0.51; Luc % (Auto) 3; Lymphocytes # (A) 1.6 k/uL (1.0-4.8); Lymphocytes % (A) 8 %; MCH 33.4 pg (25.0-35.0); MCV 98.2 fL (80.0-100.0); Macrocytosis Slight; Mean Platelet Volume 7.5; Monocytes # (A) 1.1 k/uL (0-1.0); Monocytes % (A) 6 %; Neutrophils % (A) 83 %; Poikilocytosis Slight; RBC 3.38 m/uL (3.80-5.40); RDW 15.9 % (11.5-15.5); WBC 20.4 k/uL (3.8-10.6); WBC (Perox) 21.62
[2016-07-12] MEDS: MODAFINIL 200 MG TAB PO SCH (12:36)
[2016-07-12] MEDS: SODIUM CHLORIDE 0.9% 1,000 ML IV SCH (12:44)
--- NOTE | 2016-07-12 15:12 | P.PN ---
Subjective 41-year-old female being seen on rounds this morning states there is a significant improvement in the swelling involving the neck but last pain. No difficulty in swallowing no difficulty in breathing Patient's initial presentation to the emergency room was with a chief complaint of having pain in the neck originating from the left jaw. Patient was tested for strep throat it was noted that the patient did have a broken tooth and was recommended to follow-up with her dentist at that time. Additionally the patient was given a prescription for Augmentin in the outpatient setting. Patient came back the next day stating the pain was worse. Patient was noted to have swelling involving the l neck neck. Patient was admitted to the services of the attending. IV vancomycin IV clindamycin was initiated. Patient was also seen by ears nose and throat Dr. Hammond. Also was seen by Dr. vasquez. Patient was noted to have dissuse swelling submandibular area and submental area some fluctuance. redness in the left neck extending to the clavicle radiating up to the left ear Patient did elect to undergo on July 10 incision and drainage of the left submandibular and surgical extraction of the dental decayed teeth involving 19 and 20 Objective - Vital Signs Vital signs: Vital Signs Temp 98.0 F 07/12/16 14:02 Pulse 85 07/12/16 14:02 Resp 16 07/12/16 14:02 BP 127/78 07/12/16 14:02 Pulse Ox 97 07/12/16 14:02 Intake & Output 07/11/16 07/12/16 07/12/16 18:59 06:59 18:59 Intake Total 1675 810 Balance 1675 810 Intake: IV 450 Ampicillin-Sulbactam 3 gm 100 In Sodium Chloride 0.9% 100 ml @ 100 mls/hr IVPB Q6HR [facility] Rx#:[id number] Sodium Chloride 0.9% 1, 100 000 ml @ 20 mls/hr IV . Q24H [facility] Rx#:[id number] Vancomycin 1,250 mg In 250 Sodium Chloride 0.9% 250 ml @ 125 mls/hr IVPB Q8HR [facility] Rx#:[id number] Oral 1675 360 Other: Voiding Method Toilet # Voids 2 1 2 - Exam Physical exam 41-year-old female sitting up in bed states noted improvement less swelling involving the neck no difficulty in swallowing Lungs essentially clear adequate air movement Heart S1-S2 audible and regular Abdomen soft nontender Extremities no edema Neck dressing removed from the neck [place] drain in place scant amount of drainage noted - Labs CBC & Chem 7: 07/12/16 06:56 07/12/16 06:56 Labs: Abnormal Lab Results - Last 24 Hours (Table) 07/12/16 07/12/16 Range/Units 06:56 06:56 WBC 20.4 H (3.8-10.6) k/uL RBC 3.38 L (3.80-5.40) m/uL Hgb 11.3 L (11.4-16.0) gm/dL Hct 33.2 L (34.0-46.0) % RDW 15.9 H (11.5-15.5) % Neutrophils # 17.0 H (1.3-7.7) k/uL Monocytes # 1.1 H (0-1.0) k/uL Potassium 3.4 L (3.5-5.1) mmol/L Chloride 111 H (98-107) mmol/L Glucose 103 H (74-99) mg/dL Total Protein 4.9 L (6.3-8.2) g/dL Albumin 2.5 L (3.5-5.0) g/dL Microbiology - Last 24 Hours (Table) 07/10/16 18:19 Gram Stain - Preliminary Neck Wound Culture - Preliminary 07/10/16 18:19 Anaerobic Culture - Preliminary Neck Assessment and Plan Plan: Impression Present on admission soft tissue swelling on the left-sided submandibur region Failed outpatient treatment antibiotics for soft tissue swelling possible abscess involving the neck History of multiple sclerosis Present on admission severe hypokalemia corrected Current every day smoker greater than 20 year history 1 pack a day with probable COPD I and D of left submndibular space with surgical extraction of dental decay teeth involving 19 and 20 Left neck pain likely due to a left deep neck abscess secondary to multiple dental caries of the posterior middle molar teeth failed outpatient treatment Plan Continue her medications infectious disease Resume home meds DVT and GI prophylaxis Further recommendations pending The above dictated assessment and findings were discussed with dr ivan . Impression and the plan of care have been dictated as directed. Birgit Sarmiento nurse practitioner acting as a scribe for dr ivan .
[2016-07-12] MEDS ORDERED: HYDROcodone/APAP 7.5-325MG 1 EACH TAB PO PRN (15:13)
[2016-07-12] MEDS ORDERED: MORPHINE SULFATE 4 MG/ML SYRINGE IV PRN (15:14)
[2016-07-12] MEDS: MORPHINE SULFATE 2 MG/ML SYRINGE IV PRN ×2 (17:47→21:56)
[2016-07-12] MEDS: HEPARIN SODIUM,PORCINE 5,000 UNIT/ML 1 ML VIAL SQ SCH ×2 (18:06→23:14)
[2016-07-12] MEDS: HYDROcodone/APAP 7.5-325MG 1 EACH TAB PO PRN (20:26)
[2016-07-12] MEDS: ZOLPIDEM 10 MG TAB PO SCH (21:53)
--- NOTE | 2016-07-12 22:16 | PN ---
DATE OF SERVICE: 07/12/2016 REASON FOR FOLLOWUP: Left submandibular abscess. INTERVAL HISTORY: The patient is afebrile. Overall, pain has gone into the neck area, has improved. Drainage has decreased. Denies having any difficulty swallowing or breathing. No chest pain. No cough. No abdominal pain or any diarrhea. On examination, blood pressure is 116/68 with a pulse of 88, temperature 98.6. She is 94% on room air. General description is a middle-age female lying in bed in no distress. HEENT EXAMINATION: The neck area swelling has decreased. No significant drainage. LUNGS: Unlabored breathing. Clear to auscultation anteriorly. HEART: S1, S2 with regular rate and rhythm. ABDOMEN: Soft. No tenderness. LABS: Hemoglobin is 11.8 with white count 20.4. Cultures are currently pending. DIAGNOSTIC IMPRESSION AND PLAN: Patient with neck abscess, status post drainage related more likely a poor dentition, so we are waiting for the cultures to finalize. Continue patient on Unasyn and vanco, adjusting further by the culture report. White count is elevated more likely because of the Decadron effect. Has no evidence of any worsening infection.
[2016-07-13] MEDS: VANCOMYCIN 1,250 MG in SODIUM CHLORIDE 0.9% 250 ML IVPB SCH ×3 (00:47→19:16)
[2016-07-13] MEDS: MORPHINE SULFATE 2 MG/ML SYRINGE IV PRN ×4 (04:26→17:54)
[2016-07-13] MEDS: AMPICILLIN-SULBACTAM 3 GM in SODIUM CHLORIDE 0.9% 100 ML IVPB SCH ×3 (05:07→21:38)
[2016-07-13] MEDS: HYDROcodone/APAP 7.5-325MG 1 EACH TAB PO PRN ×4 (06:47→21:40)
[2016-07-13] MEDS ORDERED: VANCOMYCIN TROUGH DUE 1 EACH MISC MISCELLANE ONE (07:00)
[2016-07-13 07:21] LABS: Anion Gap 8 mmol/L; Blood Urea Nitrogen 12 mg/dL (7-17); Calcium 8.4 mg/dL (8.4-10.2); Carbon Dioxide 26 mmol/L (22-30); Chloride 108 mmol/L (98-107); Glucose 96 mg/dL (74-99); Non-African American GFR(MDRD) >60 (>60 ml/min/1.73 sqM); Potassium 3.3 mmol/L (3.5-5.1); Sodium 142 mmol/L (137-145)
[2016-07-13] MEDS: HEPARIN SODIUM,PORCINE 5,000 UNIT/ML 1 ML VIAL SQ SCH ×2 (07:27→17:56)
[2016-07-13] MEDS: IBUPROFEN 800 MG TAB PO SCH ×3 (07:28→20:51)
[2016-07-13] MEDS: FAMOTIDINE 20 MG TAB PO SCH ×2 (07:28→20:51)
--- NOTE | 2016-07-13 08:19 | P.PN ---
Subjective 41-year-old female being seen this morning with a chief complaint of developing increased swelling and increased pain to the anterior jawline. [place] drain is in place. Dressing scant amount of drainage noted. There is a firmness to the floor lower jaw positive tenderness. Patient states it hurts to try to swallow because of the increased pain patient has remained afebrile white count is down to 20.4 no shortness breath no cough. Objective - Vital Signs Vital signs: Vital Signs Temp 98.2 F 07/13/16 07:00 Pulse 72 07/13/16 07:00 Resp 16 07/13/16 07:00 BP 150/89 07/13/16 07:00 Pulse Ox 97 07/13/16 07:00 Intake & Output 07/12/16 07/13/16 07/13/16 18:59 06:59 18:59 Intake Total 810 Balance 810 Intake: IV 450 Ampicillin-Sulbactam 3 gm 100 In Sodium Chloride 0.9% 100 ml @ 100 mls/hr IVPB Q6HR [facility] Rx#:[id number] Sodium Chloride 0.9% 1, 100 000 ml @ 20 mls/hr IV . Q24H [facility] Rx#:[id number] Vancomycin 1,250 mg In 250 Sodium Chloride 0.9% 250 ml @ 125 mls/hr IVPB Q8HR [facility] Rx#:[id number] Oral 360 Other: Voiding Method Toilet # Voids 2 1 - Exam Physical exam 41-year-old female with a chief complaint of developing increased pain and swelling to the lower jaw and neck area pleasant cooperative oriented 3 Lungs essentially clear no cough noted heart S1-S2 audible regular Abdomen soft nontender Extremities no edema noted - Labs CBC & Chem 7: 07/12/16 06:56 07/13/16 06:52 Labs: Abnormal Lab Results - Last 24 Hours (Table) 07/12/16 07/13/16 Range/Units 06:56 06:52 WBC 20.4 H (3.8-10.6) k/uL RBC 3.38 L (3.80-5.40) m/uL Hgb 11.3 L (11.4-16.0) gm/dL Hct 33.2 L (34.0-46.0) % RDW 15.9 H (11.5-15.5) % Neutrophils # 17.0 H (1.3-7.7) k/uL Monocytes # 1.1 H (0-1.0) k/uL Potassium 3.3 L (3.5-5.1) mmol/L Chloride 108 H (98-107) mmol/L Microbiology - Last 24 Hours (Table) 07/10/16 18:19 Gram Stain - Preliminary Neck Wound Culture - Preliminary Assessment and Plan Plan: Impression Present on admission soft tissue swelling on the left-sided submandibur region Failed outpatient treatment antibiotics for soft tissue swelling possible abscess involving the neck History of multiple sclerosis Present on admission severe hypokalemia corrected Current every day smoker greater than 20 year history 1 pack a day with probable COPD I and D of left submndibular space with surgical extraction of dental decay teeth involving 19 and 20 Left neck pain likely due to a left deep neck abscess secondary to multiple dental caries of the posterior middle molar teeth failed outpatient treatment Leukocytosis Plan Continue her medications infectious disease Resume home meds DVT and GI prophylaxis Further recommendations pending Will await further recommendations by Dr. vasquez The above dictated assessment and findings were discussed with S/P laron covering for Dr. Ivan . Impression and the plan of care have been dictated as directed. Birgit Sarmiento nurse practitioner acting as a scribe for Eliz/P laron covering for dr ivan .
[2016-07-13 08:36] LABS: Basophils # (A) 0.1 k/uL (0-0.2); Basophils % (A) 1 %; CH 33.4; CHCM 34.3; Eosinophils # (A) 0.1 k/uL (0-0.7); Eosinophils % (A) 1 %; HCT 38.2 % (34.0-46.0); HDW 3.98; HGB 12.7 gm/dL (11.4-16.0); Luc # (Auto) 0.63; Luc % (Auto) 4; Lymphocytes # (A) 2.8 k/uL (1.0-4.8); Lymphocytes % (A) 19 %; MCH 32.7 pg (25.0-35.0); MCHC 33.2 g/dL (31.0-37.0); MCV 98.6 fL (80.0-100.0); Macrocytosis Slight; Mean Platelet Volume 7.7; Monocytes % (A) 7 %; Neutrophils % (A) 68 %; Poikilocytosis Slight; RBC 3.88 m/uL (3.80-5.40); RDW 15.8 % (11.5-15.5); WBC 14.7 k/uL (3.8-10.6); WBC (Perox) 16.01
[2016-07-13] MEDS: POTASSIUM CHLORIDE ER 20 MEQ TAB.ER PO SCH ×4 (09:11→22:40)
[2016-07-13] MEDS: MODAFINIL 200 MG PO SCH (09:12)
[2016-07-13] MEDS: POTASSIUM CHLORIDE 10 MEQ, LIDOCAINE 2% INJ 10 MG in SODIUM CHLORIDE 0.9% 100 ML IVPB SCH ×3 (09:12→18:23)
[2016-07-13] MEDS: DULoxetine HCL 60 MG CAPSULE.DR PO SCH ×2 (09:33→20:50)
[2016-07-13] MEDS: BACLOFEN 10 MG TAB PO SCH ×2 (09:33→20:51)
--- NOTE | 2016-07-13 11:39 | US ---
EXAMINATION TYPE: US thyroid st tissue head/neck DATE OF EXAM: 07/13/2016 9:09 AM COMPARISON: NONE CLINICAL HISTORY: rule out abcess. [place] drain in place. Left neck edema. Hardness within chin area TECHNOLOGIST IMPRESSION: Multiple lymph nodes noted bilateral neck, largest on right = 2.0 x 0.4 x 0 .8cm , largest on left = 2.2 x 0.6 x 1.0cm. Complex fluid collection noted left neck (near parotid gl and) = 1.5cm. Scanned within patient's area of hardness (chin), hypoechoic, vascular area = 3.6 x 1. 1 x 1.6cm IMPRESSION: 1. There is a 1.5 cm fluid collection adjacent to the parotid gland. 2. At the area of hardness within the patient's chin there is a hypoechoic area measuring 3.6 x 1.1 x 1.6 cm. This hypoechoic vascular suggesting solid structure. Additional abscesses are not identified .
--- NOTE | 2016-07-13 13:49 | P.PN ---
Progress Note - Text Progress note. Subjective patient up in bed comfortable mother at bedside. No apparent distress alert and oriented 3. Reports neck swelling and pain is about the same does report continuous spontaneous discharge from the drain all day long. A patient's concerned about firm area mental region. Ultrasound from this morning shows there is no fluid in this area and suspect this is scar tissue. Objective Afebrile vital signs stable. White count trending down Patient's opening is about the same as yesterday approximately 20 mm no floor of mouth swelling redness is improving on the patient's neck. Extraction sites are healing well. Discharge noted during exam from the drain tube. Assessment Patient is continuing to output from the drain and improve clinically on current therapy. Awaiting final cultures. Infectious disease is following. Plan Continue current therapy Dressing changes every 8 Soft mechanical diet Heat to the neck Warm shower
[2016-07-13] MEDS: POTASSIUM CHLORIDE 10 MEQ, LIDOCAINE 2% INJ 10 MG in SODIUM CHLORIDE 0.9% 100 ML IV SCH ×2 (16:22→17:55)
[2016-07-13] MEDS ORDERED: Potassium Replacement Protocol 1 EACH MISC MISCELLANE PRN (20:07)
[2016-07-13] MEDS: SODIUM CHLORIDE 0.9% 1,000 ML IV SCH (20:50)
[2016-07-13] MEDS: ZOLPIDEM 10 MG TAB PO SCH (21:01)
[2016-07-14] MEDS: CLINDAMYCIN 900 MG in DEXTROSE 5% IN WATER 50 ML IVPB SCH ×8 (00:57→23:20)
[2016-07-14] MEDS: HEPARIN SODIUM,PORCINE 5,000 UNIT/ML 1 ML VIAL SQ SCH ×4 (00:58→23:50)
[2016-07-14] MEDS: MORPHINE SULFATE 2 MG/ML SYRINGE IV PRN ×2 (01:01→06:04)
[2016-07-14] MEDS: ceFAZolin 2 GM in SODIUM CHLORIDE 0.9% 100 ML IVPB SCH ×4 (01:36→23:49)
[2016-07-14] MEDS: SODIUM CHLORIDE 0.9% 1,000 ML IV SCH (01:37)
[2016-07-14] MEDS: HYDROcodone/APAP 7.5-325MG 1 EACH TAB PO PRN ×5 (03:43→22:15)
[2016-07-14] MEDS: POTASSIUM CHLORIDE ER 20 MEQ TAB.ER PO SCH ×2 (05:00→06:01)
[2016-07-14 07:58] LABS: Anion Gap 7 mmol/L; Blood Urea Nitrogen 12 mg/dL (7-17); Carbon Dioxide 22 mmol/L (22-30); Chloride 111 mmol/L (98-107); Glucose 101 mg/dL (74-99); Non-African American GFR(MDRD) >60 (>60 ml/min/1.73 sqM); Potassium 4.2 mmol/L (3.5-5.1); Sodium 140 mmol/L (137-145)
--- NOTE | 2016-07-14 08:24 | PN ---
DATE OF SERVICE: 07/13/2016 Reason for follow-up is neck abscess. INTERVAL HISTORY: The patient noticed to have more swelling of her neck area this morning for which an ultrasound has been done. Overall drainage seems to have decreased. The patient denies having any chest pain or shortness of breath, cough. No abdominal pain or any diarrhea. On examination, blood pressure is 133/85 with a pulse of 85, temperature 98.6. She is 94% on room air. General description is a middle-age female lying in bed in no distress. HEENT: Examination showed swelling of the neck area, but no redness and no drainage. LUNGS: Unlabored breathing. Clear to auscultation anteriorly. HEART: S1, S2. Regular rate and rhythm. ABDOMEN: Soft, no tenderness. LABS: Wound culture with the beta-hemolytic Streptococcus. Blood culture has been negative. DIAGNOSTIC IMPRESSION AND PLAN: Patient with a neck abscess with beta-hemolytic streptococcus. At this time antibiotics will be adjusted to cefazolin and clindamycin. Oral surgery is following the patient closely. Continue supportive care.
[2016-07-14] MEDS: BACLOFEN 10 MG TAB PO SCH ×2 (10:41→22:12)
[2016-07-14] MEDS: FAMOTIDINE 20 MG TAB PO SCH ×2 (10:42→22:11)
[2016-07-14] MEDS: DULoxetine HCL 60 MG CAPSULE.DR PO SCH ×2 (10:42→22:12)
[2016-07-14] MEDS: IBUPROFEN 800 MG TAB PO SCH ×3 (10:43→22:11)
[2016-07-14] MEDS: MODAFINIL 200 MG PO SCH (10:45)
--- NOTE | 2016-07-14 14:49 | P.PN ---
Subjective 41-year-old female being seen on rounds. Currently sitting up in bed this morning. Pleasant alert oriented 3. Patient states the swelling in the neck slight improvement. Is a firm area under the chin softer compared to prior assessment. Dressing removed from the chin small amount of drainage noted on the dressing this morning [place] drain remains in place Objective - Vital Signs Vital signs: Vital Signs Temp 99.3 F 07/14/16 14:19 Pulse 97 07/14/16 14:19 Resp 16 07/14/16 14:19 BP 144/89 07/14/16 14:19 Pulse Ox 93 L 07/14/16 02:00 Intake & Output 07/13/16 07/14/16 07/14/16 18:59 06:59 18:59 Intake Total 360 580 Balance 360 580 Intake: IV 580 Clindamycin 900 mg In 50 Dextrose 5% in Water 50 ml @ 100 mls/hr IVPB Q8HR [facility] Rx#:[id number] Sodium Chloride 0.9% 1, 180 000 ml @ 20 mls/hr IV . Q24H [facility] Rx#:[id number] Vancomycin 1,250 mg In 250 Sodium Chloride 0.9% 250 ml @ 125 mls/hr IVPB Q8HR [facility] Rx#:[id number] ceFAZolin 2 gm In Sodium 100 Chloride 0.9% 100 ml @ 100 mls/hr IVPB Q8HR [facility] Rx#:[id number] Oral 360 Other: Voiding Method Toilet Toilet # Voids 2 1 - Exam Physical exam 41-year-old female sitting up in bed talkative appears in no acute distress states the tenderness under the chin is improving HEENT drain under the chin and place scant amount of drainage noted on the dressing this morning decrease tenderness softer compared to prior assessment Lungs essentially clear adequate air movement Heart S1-S2 audible regular Abdomen soft nontender no reports of nausea vomiting Extremities no edema noted - Labs CBC & Chem 7: 07/13/16 06:52 07/14/16 07:01 Labs: Abnormal Lab Results - Last 24 Hours (Table) 07/13/16 07/13/16 07/14/16 Range/Units 19:25 23:26 07:01 Potassium 3.4 L 3.3 L (3.5-5.1) mmol/L Chloride 111 H (98-107) mmol/L Glucose 101 H (74-99) mg/dL Calcium 8.0 L (8.4-10.2) mg/dL Microbiology - Last 24 Hours (Table) 07/10/16 18:19 Anaerobic Culture - Preliminary Neck Anaerobic Gm Negative Bacilli Peptostreptococcus species 07/10/16 18:19 Gram Stain - Final Neck Wound Culture - Final Beta Hemolytic Streptococcus F Assessment and Plan Plan: Impression Present on admission soft tissue swelling on the left-sided submandibur region Failed outpatient treatment antibiotics for soft tissue swelling possible abscess involving the neck History of multiple sclerosis Present on admission severe hypokalemia corrected Current every day smoker greater than 20 year history 1 pack a day with probable COPD I and D of left submndibular space with surgical extraction of dental decay teeth involving 19 and 20 Left neck pain likely due to a left deep neck abscess secondary to multiple dental caries of the posterior middle molar teeth failed outpatient treatment Leukocytosis persist Plan Continue her medications infectious disease Resume home meds DVT and GI prophylaxis Further recommendations pending Dressing change every 8 hours Soft mechanical diet Warm shower Heat to the neck area Await infectious disease recommendations antibiotic therapy The above dictated assessment and findings were discussed with S/P laron covering for Dr. Ivan . Impression and the plan of care have been dictated as directed. Birgit Sarmiento nurse practitioner acting as a scribe for Aiden larry covering for dr ivan .
--- NOTE | 2016-07-14 19:25 | PN ---
DATE OF SERVICE: 07/14/2016 REASON FOR FOLLOWUP: Submandibular abscess. INTERVAL HISTORY: The patient is afebrile. The neck area swelling and redness have slightly improved. She still has some drainage from it. Denies any difficulty in swallowing. Denies having chest pain or shortness of breath or cough. No abdominal pain or any diarrhea. On examination, blood pressure is 144/89 with a pulse of 97, temperature 99.3. She is 93% on room air. General description is a middle-aged female up in the bed in no distress. HEENT EXAMINATION: The anterior neck area swelling has slightly decreased. LUNGS: Unlabored breathing. Clear to auscultation anteriorly. HEART: S1, S2. Regular rate and rhythm. ABDOMEN: Soft. No tenderness. LABS: BUN of 12, creatinine 0.55. Wound culture with peptostreptococcus species in addition to the beta-hemolytic streptococci. DIAGNOSTIC IMPRESSION AND PLAN: Patient with a neck abscess, status post drainage. Culture revealed peptostreptococcus and beta-hemolytic strep. Patient is currently on cefazolin and clindamycin. That will be continued. Hopefully she will finish therapy with oral antibiotics. Mother was present at bedside. Questions and concerns were answered.
[2016-07-14] MEDS: ZOLPIDEM 10 MG TAB PO SCH (22:47)
[2016-07-15] MEDS: HYDROcodone/APAP 7.5-325MG 1 EACH TAB PO PRN ×5 (04:14→21:48)
[2016-07-15 07:35] LABS: Anion Gap 8 mmol/L; Blood Urea Nitrogen 10 mg/dL (7-17); Calcium 8.1 mg/dL (8.4-10.2); Carbon Dioxide 22 mmol/L (22-30); Chloride 110 mmol/L (98-107); Glucose 102 mg/dL (74-99); Non-African American GFR(MDRD) >60 (>60 ml/min/1.73 sqM); Potassium 3.6 mmol/L (3.5-5.1); Sodium 140 mmol/L (137-145)
[2016-07-15 07:50] LABS: Aty Lym Flag Slight; CH 33.4; CHCM 34.4; HCT 32.2 % (34.0-46.0); HDW 3.81; HGB 10.8 gm/dL (11.4-16.0); Immature Gran Flag Slight; MCHC 33.6 g/dL (31.0-37.0); MCV 98.1 fL (80.0-100.0); Macrocytosis Slight; Mean Platelet Volume 7.7; Poikilocytosis Slight; RBC 3.28 m/uL (3.80-5.40); RDW 15.9 % (11.5-15.5); WBC 11.5 k/uL (3.8-10.6); WBC (Perox) 11.04
[2016-07-15 08:16] LABS: Add Differential Manual Differential
[2016-07-15 08:20] LABS: Band Neutrophils % 1.5 %; Metamyelocytes % 0.5 %; Nucleated Red Blood Cells 0 /100 WBC (0-0); Total Cells Counted 200
[2016-07-15 08:21] LABS: Manual Review Performed
[2016-07-15] MEDS: ceFAZolin 2 GM in SODIUM CHLORIDE 0.9% 100 ML IVPB SCH ×2 (08:47→16:43)
[2016-07-15] MEDS: DULoxetine HCL 60 MG CAPSULE.DR PO SCH ×3 (08:47→21:48)
[2016-07-15] MEDS: BACLOFEN 10 MG TAB PO SCH ×2 (08:47→21:04)
[2016-07-15] MEDS: IBUPROFEN 800 MG TAB PO SCH ×3 (08:47→21:03)
[2016-07-15] MEDS: HEPARIN SODIUM,PORCINE 5,000 UNIT/ML 1 ML VIAL SQ SCH ×2 (08:47→17:32)
[2016-07-15] MEDS: FAMOTIDINE 20 MG TAB PO SCH ×3 (08:48→21:48)
[2016-07-15] MEDS: MODAFINIL 200 MG PO SCH (08:48)
[2016-07-15] MEDS: CLINDAMYCIN 900 MG in DEXTROSE 5% IN WATER 50 ML IVPB SCH ×4 (10:00→18:13)
--- NOTE | 2016-07-15 13:00 | PN ---
DATE OF SERVICE: 07/15/2016 HISTORY OF PRESENT ILLNESS: The patient is a 41-year-old female who came in with problems with neck pain initially to the emergency room with problems with swelling where she had a CT of the neck done that showed some swelling to left submandibular region and submental region and had I&D of left submandibular space with findings of neck abscess where she has been having drainage. She is denying any difficulty with swallowing, though she has some difficulty with chewing. She states that she initially did have some problems swallowing at the beginning but that has improved. She denies any nausea, vomiting, diarrhea, chest pain or difficulty with breathing at this time. She states the swelling has gone down. She does have underlying history of MS. She did have surgical extraction of decaying teeth 19 and 20. She still has some discomfort to the neck site, but feels that she is doing somewhat better. Dr. Toscano prefers that she still stay for continued IV antibiotic therapy at this time. On physical examination, vital signs show temperature of 97.6, heart rate 88, respiratory rate 16, blood pressure is 130/86, oxygen saturation on room air is 98%. Labs for today show WBC 11.5, hemoglobin 10.8, hematocrit 32.2, platelets are 326. Sodium is 140, potassium 3.6, chloride 110, carbon dioxide 22, BUN 10, creatinine 0.6. Glucose 102. Calcium is 8.1. Neck culture showed anaerobic gram-negative bacilli with Peptostreptococcus species and wound culture is showing beta hemolytic Streptococcus F. Blood cultures were negative. She did have head and neck ultrasound done shows that there is a 1.5 cm fluid collection adjacent to the parotid gland and an area of hardness within the patient's chin, there is an echoic area measuring 3.6 x 1.1 x 1.6 cm suggesting a solid structure, additional abscesses not identified. GENERAL: She is a 41-year-old female who appears relatively comfortable at this time. She appears in no acute respiratory distress. HEENT: Head is atraumatic. She still has some swelling and dressing to the chin neck area with some tenderness and still some drainage. Neck is short and supple. Lungs sounds are essentially clear. CARDIOVASCULAR: S1 and S2 is heard; regular. ABDOMEN: Soft, nontender. EXTREMITIES: No edema. NEUROLOGIC: She is awake, alert. IMPRESSION: 1. Abscess to neck and left-sided submandibular region. 2. Extraction of dental decaying teeth involving 19 and 20. 3. I&D of left submandibular space. 4. History of multiple sclerosis. 5. History of fibromyalgia. PLAN: Continue patient with her IV antibiotic therapy. Medications has been reviewed. Continue with GI and DVT prophylaxis. Dressing changes per ID. Increase activity as tolerated. Diet as tolerated. Will continue with supportive care.
[2016-07-15] MEDS: SODIUM CHLORIDE 0.9% 1,000 ML IV SCH (19:42)
[2016-07-15] MEDS: ZOLPIDEM 10 MG TAB PO SCH (21:04)
[2016-07-16] MEDS: HEPARIN SODIUM,PORCINE 5,000 UNIT/ML 1 ML VIAL SQ SCH ×3 (00:31→15:36)
[2016-07-16] MEDS: CLINDAMYCIN 900 MG in DEXTROSE 5% IN WATER 50 ML IVPB SCH ×6 (00:31→17:34)
[2016-07-16] MEDS: ceFAZolin 2 GM in SODIUM CHLORIDE 0.9% 100 ML IVPB SCH ×3 (01:38→15:33)
[2016-07-16] MEDS: HYDROcodone/APAP 7.5-325MG 1 EACH TAB PO PRN ×5 (02:21→18:25)
[2016-07-16] MEDS ORDERED: POTASSIUM CHLORIDE ER 10 MEQ TAB.ER.PRT PO STA (06:41)
[2016-07-16] MEDS: FAMOTIDINE 20 MG TAB PO SCH ×2 (08:40→21:20)
[2016-07-16] MEDS: BACLOFEN 10 MG TAB PO SCH ×2 (08:40→21:20)
[2016-07-16] MEDS: IBUPROFEN 800 MG TAB PO SCH ×3 (08:40→21:20)
[2016-07-16] MEDS: DULoxetine HCL 60 MG CAPSULE.DR PO SCH ×2 (08:41→21:20)
[2016-07-16] MEDS: MODAFINIL 200 MG PO SCH (09:22)
--- NOTE | 2016-07-16 13:46 | PN ---
DATE OF SERVICE: 07/16/2016 HISTORY OF PRESENT ILLNESS: Patient is a 41-year-old female who is being treated for problems with neck abscess to left side submandibular region. During her hospital course she did have extraction of teeth number 19 and 20 and presently has a [place] drain in where patient states she has considerably more drainage today and that it continues to be which she classified as pus-like. Staff states that it is very tenacious, creamy, yellow. No odor noted. She still has considerable swelling to the left neck area, you can see indentations finally of chin. She continues with IV antibiotic therapy. She denies any difficulty with swallowing. She still has tenderness. She is denying any problems with chest pain or nausea, vomiting. Denies any problems with diarrhea at this time. She does have a known history of MS. On physical examination, vital signs show temperature of 98.7, heart rate 89, respiratory rate 16, blood pressure is 131/82, oxygen saturation is 97% on room air. Labs show WBC is 11.5, hemoglobin 10.8, hematocrit 32.2, platelets are 326, sodium is 140, potassium 3.6, chloride 110, carbon dioxide 22, BUN 10, creatinine is 0.6. Glucose 102. Calcium is 8.1. No changes with culture results. GENERAL: She is a 41-year-old female in no acute respiratory distress. HEENT: Pupils are reactive. Mucous membrane is moist. She still has considerable swelling to the left side of neck and chin area down. She does have drainage to neck area under chin with a [place] drain and covered with dressing. Neck is short, supple, thick. Lung sounds are essentially clear. CARDIOVASCULAR: S1 and S2 is heard; regular. ABDOMEN: Soft, nontender. Bowel sounds are present. EXTREMITIES: No edema. Pulses are palpable. NEUROLOGIC: She is awake, alert. IMPRESSION: 1. Abscess to neck involving left side submandibular region with [place] drain. 2. Extraction of dental decaying teeth involving 19 and 20. 3. ID of left submandibular space. 4. History of multiple sclerosis. 5. History of fibromyalgia. 6. Anemia. PLAN: Continue patient with IV antibiotic therapy at this time. Increase activity as tolerated. Continue with GI and DVT prophylaxis. Increase activity. Continue with supportive care. Dr. Davis will be back tomorrow. [facility]
[2016-07-16] MEDS: SODIUM CHLORIDE 0.9% 1,000 ML IV SCH (15:36)
--- NOTE | 2016-07-16 16:57 | PN ---
DATE OF SERVICE: 07/16/2016 Reason for followup is neck abscess. INTERVAL HISTORY: The patient is afebrile. She is still complaining of significant drainage from her neck into the drain. Patient's overall swelling and redness has improved. Denies any chest pain or shortness of breath. No cough. No abdominal pain or any diarrhea. On examination, blood pressure 131/82 with a pulse of 89, temperature 98.7. She is 97% on room air. General description is a middle-age female, up in the bed in no distress. HEENT examination: The overall neck area swelling and redness has improved. LUNGS: Unlabored breathing. Clear to auscultation anteriorly. HEART: S1, S2, regular rate and rhythm. ABDOMEN: Soft. No tenderness. LABS: Hemoglobin is 10.8, white count of 11.5 with a BUN of 10, creatinine 0.60. DIAGNOSTIC IMPRESSION AND PLAN: Patient with neck abscess, status post drainage with multiple pathogens, covered with the cefazolin. PLAN: Will finish therapy with p.o. Augmentin 875 b.i.d. for another 10 days with the patient already has antibiotics at home with outpatient followup.
[2016-07-16] MEDS: ZOLPIDEM 10 MG TAB PO SCH (21:20)
[2016-07-17] MEDS: HEPARIN SODIUM,PORCINE 5,000 UNIT/ML 1 ML VIAL SQ SCH ×2 (01:05→08:11)
[2016-07-17] MEDS: HYDROcodone/APAP 7.5-325MG 1 EACH TAB PO PRN ×4 (01:05→13:02)
[2016-07-17] MEDS: CLINDAMYCIN 900 MG in DEXTROSE 5% IN WATER 50 ML IVPB SCH ×4 (01:07→08:13)
[2016-07-17] MEDS: ceFAZolin 2 GM in SODIUM CHLORIDE 0.9% 100 ML IVPB SCH ×2 (01:09→09:53)
[2016-07-17 07:51] VITALS: BP 138/84; PULSE 82; RESP 16; TEMP 97.1
[2016-07-17] MEDS: MODAFINIL 200 MG PO SCH ×2 (08:11→08:15)
[2016-07-17] MEDS: IBUPROFEN 800 MG TAB PO SCH (08:11)
[2016-07-17] MEDS: DULoxetine HCL 60 MG CAPSULE.DR PO SCH (08:13)
[2016-07-17] MEDS: FAMOTIDINE 20 MG TAB PO SCH (08:13)
[2016-07-17] MEDS: BACLOFEN 10 MG TAB PO SCH (08:13)
--- NOTE | 2016-07-17 10:55 | P.PN ---
Progress Note - Text S: 6 days post op I and D Feeling better eating and wants to go home. O: drain dc has lightened, less quanity aprox 1cc per shift. yellow tinge. continues IV ancef and Cle[place] intra oral exam un remarkable A: Abcess resolving and Drain out put lessing P: drain removed today bacitracin to wound tid heat to neck fu with me in one week continue abx until at least one week
--- NOTE | 2016-07-17 13:08 | P.DS ---
Providers Date of admission: 07/09/16 12:42 Expected date of discharge: 07/17/16 Attending physician: Vito Ivan Consults: 07/09/16 20:41 Consult Physician Routine Consulting Provider: Brayan Hammond Consult Reason/Comments: neck/throat swelling/abscess Do you want consulting provider notified?: Yes 07/10/16 12:02 Consult Physician Routine Consulting Provider: Katerin Toscano Consult Reason/Comments: cellulitis neck Do you want consulting provider notified?: Yes Primary care physician: Luly [place] [facility] Course: A 41-year-old female presented to the emergency room after noting extreme swelling and redness to the anterior part of the neck. Patient had been seen in the emergency room earlier and was given antibiotics and discharged. Patient was given an antibiotic for Augmentin and was told at that time they noted the patient had a broken tooth and needed to follow-up with her dentist Patient returned to the emergency room with increased pain with severe swelling and redness along the entire anterior part of her neck and throat radiating down to the left shoulder. Patient was admitted to the floor and started on IV vancomycin and IV clindamycin. Patient does have a history of multiple sclerosis. And ears nose and throat eval was requested patient was seen by Dr. Hammond. Additionally the patient was seen by Dr. vasquez oral surgeon. A computerized scan of the neck showed hypodensity adjacent to the left mandible in the area of the root could represent an abscess. On July 10 patient did undergo an incision and drainage of the left submundibular space and surgical extraction of teeth 19 and 20 due to decayed dental cavity. Infectious disease consultation was requested. Recommendations for IV antibiotics were obtained. On the day of discharge the plan was to finish therapy with oral Augmentin 875 twice a day for another 10 days. Patient does have the antibiotic at home and would need to follow-up in the outpatient setting on the day of discharge patient was felt to be clinically stable and appropriate proceed from all consulting physicians Impression discharge diagnosis Abscess to the neck involving the left side submandibular region with a [place] drain Extraction of dental Caries teeth involving 19 and 20 Present on admission soft tissue swelling on the left-sided submandibur region suspect due to an abscess failed outpatient treatment Failed outpatient treatment antibiotics for soft tissue swelling possible abscess involving the neck History of multiple sclerosis Present on admission severe hypokalemia corrected resolved Current every day smoker greater than 20 year history 1 pack a day with probable COPD I and D of left submndibular space with surgical extraction of dental decay teeth involving 19 and 20 with a [place] drain in place done on July 10 Left neck pain likely due to a left deep neck abscess secondary to multiple dental caries of the posterior middle molar teeth failed outpatient treatment Leukocytosis persist The above dictated assessment and findings were discussed with dr ivan . Impression and the plan of care have been dictated as directed. Birgit Sarmiento nurse practitioner acting as a scribe for dr ivan Patient Condition at Discharge: Fair Plan - Discharge Summary New Discharge Prescriptions: Acetaminophen-Codeine 300-30mg [Tylenol w/codeine #3] 2 tab PO Q6H PRN #15 tablet PRN Reason: Pain Bacitracin Oint 1 applic TOPICAL TID #60 gm Varenicline Tartrate [Chantix] 1 mg PO DAILY #1 tablet Discharge Medication List Acetaminophen-Codeine 300-30mg [Tylenol w/codeine #3] 1 tab PO Q4H PRN #20 tablet 07/08/16 [Rx] Amoxicillin/Potassium Clav [Augmentin 875-125 Tablet] 1 tab PO Q12HR #20 tab 04/13 [Rx] Baclofen [Lioresal] 10 mg PO BID 07/08/16 [History] DULoxetine HCL [Cymbalta] 60 mg PO BID 07/08/16 [History] Ibuprofen [Motrin] 800 mg PO TID 07/08/16 [History] Medroxyprogesterone Acetate [Depo-Provera] 150 mg IM Q90D 07/08/16 [History] Modafinil [Provigil] 200 mg PO DAILY 07/08/16 [History] Tysabri 1 applic IV Q28D 07/08/16 [History] Zolpidem Tartrate 10 mg PO HS 07/08/16 [History] Meloxicam [Mobic] 15 mg PO TID 07/09/16 [History] Acetaminophen Tab [Tylenol] 650 mg PO Q6HR PRN #0 tab 07/17/16 [Rx] Acetaminophen-Codeine 300-30mg [Tylenol w/codeine #3] 2 tab PO Q6H PRN #15 tablet 07/17/16 [Rx] Bacitracin Oint 1 applic TOPICAL TID #60 gm 07/17/16 [Rx] Varenicline Tartrate [Chantix] 1 mg PO DAILY #1 tablet 07/17/16 [Rx] Follow up Appointment(s)/Referral(s): Jayme Vasquez DDS [STAFF PHYSICIAN] - 07/24/16 9:30 am Luly Caldwell DO [Primary Care Provider] - 1-2 days Katerin Toscano MD [STAFF PHYSICIAN] - 07/27/16 11:30 am Activity/Diet/Wound Care/Special Instructions: wash affected area with soap and water apply bacitracin to affected area three times daily and cover with 4x4 Continue with home augmentin Smoking cessation information to be provided patient's been advised to stop smoking cigarettes Discharge Disposition: HOME SELF-CARE
--- NOTE | 2016-07-17 14:02 | PN ---
DATE OF SERVICE: 07/17/2016 Reason for follow-up: Neck abscess Streptococcus group. INTERVAL HISTORY: The patient is afebrile. The neck drainage tube has been discontinued. The patient also overall swelling and redness has improved. Denies any chest pain, shortness of breath, cough, no abdominal pain or any diarrhea. On examination, blood pressure is 132/84 with a pulse of 82, temperature 97.1. She is 94% on room air. General description is a middle-age female up in the bed in no distress. HEENT EXAMINATION: Overall the neck swelling and redness have improved. No drainage. LUNGS: Unlabored breathing. Clear to auscultation anteriorly. HEART: S1, S2, regular rate and rhythm. ABDOMEN: Soft, no tenderness. No tenderness. LABS: Potassium normal at 4.0. DIAGNOSTIC IMPRESSION AND PLAN: Patient with neck abscess with Peptostreptococcus and Streptococcus group the patient did show overall clinical improvement on Unasyn plan to finish therapy with Augmentin 875 b.i.d. for another 10 days with outpatient follow-up. Continue supportive care. MTDD
== END 2016-07-17 14:06 | disposition home or self-care (01) | DRG 137 ==
LOC: EC 09:48 → 3SUR 12:42
PROVIDERS: ADMIT Family Medicine; ATTEND Family Medicine
PROC: 0W9500Z Drainage of Lower Jaw with Drainage Device, Open Approach (ICD-10-PCS; principal; 2016-07-10 11:55)
PROC: 0CDXXZ1 Extraction of Lower Tooth, Multiple, External Approach (ICD-10-PCS; principal; 2016-07-10 11:55)
DX: K04.7 Periapical abscess without sinus (principal); L02.11 Cutaneous abscess of neck; G35 Multiple sclerosis; K12.2 Cellulitis and abscess of mouth; L03.221 Cellulitis of neck; D64.9 Anemia, unspecified; E87.6 Hypokalemia; F17.200 Nicotine dependence, unspecified, uncomplicated; J44.9 Chronic obstructive pulmonary disease, unspecified; K02.9 Dental caries, unspecified; M79.7 Fibromyalgia; R13.10 Dysphagia, unspecified; Z82.49 Family history of ischemic heart disease and other diseases of the circulatory system; Z86.14 Personal history of Methicillin resistant Staphylococcus aureus infection; Z79.1 Long term (current) use of non-steroidal anti-inflammatories (NSAID); Z79.899 Other long term (current) drug therapy
CPT/HCPCS: 36415; 70355; 70491; 76536; 80048; 80053; 80202; 81025; 84132; 85025; 85652; 87040; 87070; 87075; 87205; 96365; 96375; 99285

== ENCOUNTER 2017-04-15 13:21 | Inpatient (IN) | payer BC ==
[2017-04-15] MEDS ORDERED: RX INFO: IV CONTRAST WAS GIVEN 1 EACH MISC MISCELLANE PRN (13:46)
--- NOTE | 2017-04-15 14:09 | ED ---
ENT HPI - General Chief complaint: Dental/Oral Stated complaint: infection Time Seen by Provider: 04/15/17 13:37 Source: patient, RN notes reviewed Mode of arrival: ambulatory Limitations: no limitations - History of Present Illness Initial comments: This a 42-year-old female presents emergency Department chief complaint facial dental infection. Patient states she had a problem with dental infection in June when she was admitted and had oral surgery. Patient states that started approximately 3 days ago she states that she merely certain antibiotics and has been taken off states symptoms worsen. Patient states she went and saw a dentist in [place] [facility] states that she was told she had dental infection to continue antibiotics and states that they started doing a root canal would not proceed any further because of infection. Patient states last 24 hours she's had worsening symptoms including facial swelling and pain. states that she's felt hot and cold but no reported time. Patient also with a mild headache. Denies any neck stiffness. Denies nausea, vomiting, or constipation. Patient currently is taking Augmentin states that she's been taking double the dose. - Related Data Home Medications Medication Instructions Recorded Confirmed Baclofen [Lioresal] 10 mg PO BID 07/08/16 04/15/17 DULoxetine HCL [Cymbalta] 60 mg PO BID 07/08/16 04/15/17 Ibuprofen [Motrin] 800 mg PO TID 07/08/16 04/15/17 Modafinil [Provigil] 200 mg PO DAILY 07/08/16 04/15/17 Tysabri 1 applic IV Q28D 07/08/16 04/15/17 Zolpidem Tartrate 10 mg PO HS 07/08/16 04/15/17 Amoxicillin/Potassium Clav 1 tab PO Q12HR 04/15/17 04/15/17 [Augmentin 875-125 Tablet] HYDROcodone/APAP 7.5-325MG [[place] 1 tab PO QID PRN 04/15/17 04/15/17 7.5-325] buPROPion HCL [Wellbutrin SR] 100 mg PO DAILY 04/15/17 04/15/17 Allergies Allergy/AdvReac Type Severity Reaction Status Date / Time No Known Allergies Allergy Verified 04/15/17 14:11 Review of Systems ROS Statement: Those systems with pertinent positive or pertinent negative responses have been documented in the HPI. ROS Other: All systems not noted in ROS Statement are negative. Past Medical History Additional Past Medical History / Comment(s): MS History of Any Multi-Drug Resistant Organisms: MRSA Date of last positivie culture/infection: 2010 MDRO Source:: right leg Past Surgical History: No Surgical Hx Reported Additional Past Surgical History / Comment(s): Dental surgery in June 2016 Past Anesthesia/Blood Transfusion Reactions: No Reported Reaction Past Psychological History: No Psychological Hx Reported Smoking Status: Former smoker Past Alcohol Use History: Occasional Past Drug Use History: None Reported - Past Family History Mother Family Medical History: Hypertension Additional Family Medical History / Comment(s): Heart stents Father Family Medical History: Cancer, Hypertension Additional Family Medical History / Comment(s): esophageal and rectal CA Brother(s) Additional Family Medical History / Comment(s): 2 brothers 1 has MS and 1 has sarcoidosis Sister(s) Additional Family Medical History / Comment(s): Lupus General Exam Limitations: no limitations General appearance: alert, in no apparent distress Head exam: Present: atraumatic, normocephalic, normal inspection Eye exam: Present: normal appearance, PERRL, EOMI. Absent: scleral icterus, conjunctival injection, periorbital swelling ENT exam: Present: mucous membranes moist, TM's normal bilaterally, normal external ear exam. Absent: normal oropharynx (Multiple areas of dental erosion , edentulous, right-sided facial swelling and tenderness) Neck exam: Present: normal inspection, full ROM. Absent: tenderness, meningismus, lymphadenopathy Respiratory exam: Present: normal lung sounds bilaterally. Absent: respiratory distress, wheezes, rales, rhonchi, stridor Cardiovascular Exam: Present: regular rate, normal rhythm, normal heart sounds. Absent: systolic murmur, diastolic murmur, rubs, gallop, clicks Skin exam: Present: warm, dry, intact, normal color. Absent: rash Course Vital Signs 04/15/17 13:24 Temperature 97 F L Pulse Rate 95 Respiratory 18 Rate Blood Pressure 178/90 O2 Sat by Pulse 100 Oximetry Medical Decision Making - Lab Data Result diagrams: 04/15/17 14:03 04/15/17 14:03 Lab Results 04/15/17 04/15/17 04/15/17 Range/Units 14:03 14:03 14:03 WBC 8.0 (3.8-10.6) k/uL RBC 4.21 (3.80-5.40) m/uL Hgb 13.6 (11.4-16.0) gm/dL Hct 41.4 (34.0-46.0) % MCV 98.3 (80.0-100.0) fL MCH 32.2 (25.0-35.0) pg MCHC 32.8 (31.0-37.0) g/dL RDW 15.1 (11.5-15.5) % Plt Count 272 (150-450) k/uL Neutrophils % 62 % Lymphocytes % 23 % Monocytes % 10 % Eosinophils % 2 % Basophils % 1 % Neutrophils # 5.0 (1.3-7.7) k/uL Lymphocytes # 1.9 (1.0-4.8) k/uL Monocytes # 0.8 (0-1.0) k/uL Eosinophils # 0.2 (0-0.7) k/uL Basophils # 0.1 (0-0.2) k/uL PT (9.0-12.0) sec INR (<1.2) APTT (22.0-30.0) sec Sodium 140 (137-145) mmol/L Potassium 3.8 (3.5-5.1) mmol/L Chloride 108 H (98-107) mmol/L Carbon Dioxide 21 L (22-30) mmol/L Anion Gap 11 mmol/L BUN 13 (7-17) mg/dL Creatinine 0.60 (0.52-1.04) mg/dL Est GFR (MDRD) Af Amer >60 (>60 ml/min/1.73 sqM) Est GFR (MDRD) Non-Af >60 (>60 ml/min/1.73 sqM) Glucose 72 L (74-99) mg/dL Plasma Lactic Acid Chas 1.1 (0.7-2.0) mmol/L Calcium 9.5 (8.4-10.2) mg/dL 04/15/17 Range/Units 14:03 WBC (3.8-10.6) k/uL RBC (3.80-5.40) m/uL Hgb (11.4-16.0) gm/dL Hct (34.0-46.0) % MCV (80.0-100.0) fL MCH (25.0-35.0) pg MCHC (31.0-37.0) g/dL RDW (11.5-15.5) % Plt Count (150-450) k/uL Neutrophils % % Lymphocytes % % Monocytes % % Eosinophils % % Basophils % % Neutrophils # (1.3-7.7) k/uL Lymphocytes # (1.0-4.8) k/uL Monocytes # (0-1.0) k/uL Eosinophils # (0-0.7) k/uL Basophils # (0-0.2) k/uL PT 9.6 (9.0-12.0) sec INR 0.9 (<1.2) APTT 26.1 (22.0-30.0) sec Sodium (137-145) mmol/L Potassium (3.5-5.1) mmol/L Chloride (98-107) mmol/L Carbon Dioxide (22-30) mmol/L Anion Gap mmol/L BUN (7-17) mg/dL Creatinine (0.52-1.04) mg/dL Est GFR (MDRD) Af Amer (>60 ml/min/1.73 sqM) Est GFR (MDRD) Non-Af (>60 ml/min/1.73 sqM) Glucose (74-99) mg/dL Plasma Lactic Acid Chas (0.7-2.0) mmol/L Calcium (8.4-10.2) mg/dL Disposition Clinical Impression: Dental infection, Dental abscess, Failure of outpatient treatment Disposition: ADMITTED IP TO THIS [facility] Condition: Stable Referrals: Luly Caldwell DO [Primary Care Provider] - 1-2 days
[2017-04-15 14:12] LABS: Basophils # (A) 0.1 k/uL (0-0.2); Basophils % (A) 1 %; CH 32.3; CHCM 33.1; Eosinophils # (A) 0.2 k/uL (0-0.7); Eosinophils % (A) 2 %; HCT 41.4 % (34.0-46.0); HDW 3.07; HGB 13.6 gm/dL (11.4-16.0); Luc # (Auto) 0.17; Luc % (Auto) 2; Lymphocytes # (A) 1.9 k/uL (1.0-4.8); Lymphocytes % (A) 23 %; MCH 32.2 pg (25.0-35.0); MCHC 32.8 g/dL (31.0-37.0); MCV 98.3 fL (80.0-100.0); Mean Platelet Volume 8.2; Monocytes # (A) 0.8 k/uL (0-1.0); Monocytes % (A) 10 %; Neutrophils % (A) 62 %; RBC 4.21 m/uL (3.80-5.40); RDW 15.1 % (11.5-15.5); WBC (Perox) 8.01
[2017-04-15 14:21] LABS: Anion Gap 11 mmol/L; Blood Urea Nitrogen 13 mg/dL (7-17); Calcium 9.5 mg/dL (8.4-10.2); Carbon Dioxide 21 mmol/L (22-30); Chloride 108 mmol/L (98-107); Glucose 72 mg/dL (74-99); Non-African American GFR(MDRD) >60 (>60 ml/min/1.73 sqM); Potassium 3.8 mmol/L (3.5-5.1); Sodium 140 mmol/L (137-145)
[2017-04-15 14:23] LABS: INR 0.9 (<1.2); Partial Thromboplastin Time 26.1 sec (22.0-30.0); Prothrombin Time 9.6 sec (9.0-12.0)
[2017-04-15] MEDS ORDERED: HYDROmorphone 0.5 MG/0.5 ML SYRINGE IVP STA (14:32)
[2017-04-15] MEDS ORDERED: ONDANSETRON 4 MG/2 ML VIAL IVP STA (14:32)
--- NOTE | 2017-04-15 14:52 | CT ---
EXAMINATION TYPE: CT soft tissue neck w con DATE OF EXAM: 04/15/2017 2:42 PM COMPARISON: 07/09/2016 HISTORY: rt facial swelling/infection in tooth CT DLP: 315.7 mGycm Automated exposure control for dose reduction was used. CONTRAST: CT scan of the neck is performed following with IV Contrast, patient injected with 100 mL of Omnipaqu e 300. Axial images are obtained, coronal and sagittal reformatted images are reviewed. FINDINGS: There is normal branching pattern of the great vessels on the aortic arch. Thyroid gland is large wit hout a dominant mass seen. There is normal contrast opacification of the carotid arteries and jugular veins. Epiglottis appears normal. Subglottic trachea appears normal. There is no evidence of a phary ngeal mass. Parotid glands are symmetric. Submandibular salivary glands are symmetric. There are mult iple anterior and posterior triangle cervical lymph nodes that measure up to 13 mm. There is mild sub cutaneous edema lateral to the right hemimandible. There is metal artifact from dental work. I see no focal bone destruction. Facial bones appear intact. There is mild soft tissue swelling lateral to th e right maxilla. IMPRESSION: There is clearing of the inflammatory changes on the left side compared to old CT scan. There is new inflammatory change in the subcutaneous tissues and lateral to the right maxilla compare d to old exam. No drainable fluid collection. mild cervical adenopathy.
[2017-04-15] MEDS ORDERED: AMPICILLIN-SULBACTAM 3 GM in SODIUM CHLORIDE 0.9% 100 ML IVPB STA (15:13)
[2017-04-15] MEDS ORDERED: NALOXONE 0.4 MG/ML 1 ML VIAL IV PRN (15:16)
[2017-04-15] MEDS ORDERED: ACETAMINOPHEN TAB 325 MG TAB PO PRN (15:16)
[2017-04-15] MEDS: HYDROmorphone 0.5 MG/0.5 ML SYRINGE IVP PRN ×3 (15:43→22:21)
[2017-04-15] MEDS: IBUPROFEN 800 MG TAB PO SCH ×2 (16:21→21:09)
[2017-04-15] MEDS: HYDROcodone/APAP 7.5-325MG 1 EACH TAB PO PRN ×2 (16:23→21:10)
[2017-04-15 17:33] VITALS: BMI 21.9
--- NOTE | 2017-04-15 18:20 | P.HPIM ---
History of Present Illness H&P Date: 04/15/17 Chief Complaint: Right facial swelling 42-year-old female with past medical history of multiple sclerosis. She presented due to right-sided facial swelling due to dental infection. She reported [place] angina back in June 2016 where she was intubated at that time and treated aggressively. She was worried about similar complication this time. She reports her symptoms has started about 5-6 days ago and she knows that she has a cracked tooth and she started noticing some pain for which she scheduled an appointment with her dentist however on Sunday she was noticing some excruciating pain and maybe some slight swelling so she went to an emergency dentist who told her that she will need to root canal surgery done started her on antibiotics Augmentin and asked her to come 3-4 days later however today she noticed increased swelling involving her right lower eyelid right side of the face and her right side of the neck she was concerned that this could get complicated and decided to come to the hospital. She denies any trouble swallowing any changes in her speech she denies any trouble breathing she reports some very mild possible drooling but she is reporting some pain in her right upper molar that's possibly radiating to the throat. Denies any fevers or chills but she reports that she is feeling warm patient was evaluated in the ER CAT scan of the soft tissue of the neck was performed, which has showed new inflammatory changes over the subcutaneous tissue lateral to the right maxilla without any drainable fluid collection and also showing mild cervical adenopathy Patient admitted for further management due to failed outpatient antibiotic therapy Currently patient seems to be anxious, she requested to be full code and to perform full resuscitation if needed she agrees to intubation if needed. An name her mom as surrogate decision maker in case she loses capacity to make decisions for herself. Review of Systems Constitutional: Patient she reports feeling warm, denies chills, denies night sweating, denies significant weight changes Eyes: Patient denies visual changes, denies eye pain ENT: Patient denies ear pain, denies rhinorrhea, denies sore throat Cardiovascular: Patient denies chest pain, denies exertional dyspnea, denies peripheral leg edema, denies orthopnea, denies paroxysmal nocturnal dyspnea Respiratory:Patient denies cough, denies wheezing, denies shortness of breath Gastrointestinal: Patient denies diarrhea, denies constipation, denies nausea , denies vomiting, denies abdominal pain Genitourinary: Patient denies dysuria, denies hematuria, denies changes in urinary habits, denies genital lesions Musculoskeletal: Patient denies muscle pain, denies joint pain Psychiatric: Patient denies changes in mood or memory, denies suicidal ideation, denies anxiety Endocrine: Patient denies heat intolerance, denies cold intolerance, denies excessive thirst, denies polyuria Neurological: Patient denies focal neurologic deficits, denies weakness, denies numbness, denies tingling Hem/Lymphatic: Patient denies bleeding tendency, denies bruising, denies swollen lymph glands Allergic/Immun: Patient denies recent allergic reactions Skin: Patient denies rashes, denies pruritis, denies ulcers Past Medical History Past Medical History: Musculoskeletal Disorder, Neurologic Disorder Additional Past Medical History / Comment(s): MS, [place] angina 06/2016 History of Any Multi-Drug Resistant Organisms: MRSA Date of last positivie culture/infection: 2010 MDRO Source:: right leg Past Surgical History: No Surgical Hx Reported Additional Past Surgical History / Comment(s): Dental surgery in June 2016 Past Anesthesia/Blood Transfusion Reactions: No Reported Reaction Past Psychological History: No Psychological Hx Reported Smoking Status: Former smoker Past Alcohol Use History: Occasional Past Drug Use History: None Reported - Past Family History Mother Family Medical History: Hypertension Additional Family Medical History / Comment(s): Heart stents Father Family Medical History: Cancer, Hypertension Additional Family Medical History / Comment(s): esophageal and rectal CA Brother(s) Additional Family Medical History / Comment(s): 2 brothers 1 has MS and 1 has sarcoidosis Sister(s) Additional Family Medical History / Comment(s): Lupus, MS Medications and Allergies Home Medications Medication Instructions Recorded Confirmed Type Baclofen [Lioresal] 10 mg PO BID 07/08/16 04/15/17 History DULoxetine HCL [Cymbalta] 60 mg PO BID 07/08/16 04/15/17 History Ibuprofen [Motrin] 800 mg PO TID 07/08/16 04/15/17 History Modafinil [Provigil] 200 mg PO DAILY 07/08/16 04/15/17 History Tysabri 1 applic IV Q28D 07/08/16 04/15/17 History Zolpidem Tartrate 10 mg PO HS 07/08/16 04/15/17 History Amoxicillin/Potassium Clav 1 tab PO Q12HR 04/15/17 04/15/17 History [Augmentin 875-125 Tablet] HYDROcodone/APAP 7.5-325MG [[place] 1 tab PO QID PRN 04/15/17 04/15/17 History 7.5-325] buPROPion HCL [Wellbutrin SR] 100 mg PO DAILY 04/15/17 04/15/17 History Allergies Allergy/AdvReac Type Severity Reaction Status Date / Time No Known Allergies Allergy Verified 04/15/17 14:11 Physical Exam Vitals: Vital Signs Temp Pulse Pulse Resp BP BP Pulse Ox 04/15/17 17:36 163/99 04/15/17 17:02 96 16 164/99 04/15/17 15:36 98.3 F 92 18 182/96 99 04/15/17 13:24 97 F L 95 18 178/90 100 Intake and Output 04/15/17 04/15/17 04/15/17 06:59 14:59 22:59 Other: Weight 63.503 kg 63.5 kg Patient Weight 04/16/17 06:59 Weight 63.5 kg Constitutional: No acute distress, conversant, pleasant Eyes: Anicteric sclerae, moist conjunctiva, no lid-lag Pupils equal round reactive to light ENMT: Limited exam patient could not fully open her mouth I could not visualize the uvula tongue is not swollen there is no redness over the maxillary or mandibular gums. There is no visible discharge. There is some swelling over the right molars. NC/AT Could not visualize the oropharynx due to patient limited ability to open her mouth Neck: Supple, FROM, no masses, or JVD There is some swelling over the right side of the face with some fullness on the right side of the neck no tenderness to palpation of the neck, palpable submandibular and cervical lymph nodes bilaterally No carotid bruits No thyromegaly Lungs: Clear to auscultation Clear to percussion Normal respiratory effort, no accessory muscle use Cardiovascular: Heart regular in rate and rhythm, No murmurs, gallops, or rubs No peripheral edema Abdominal: Soft Nontender, no guarding, rebound or rigidity Abdomen moving with respiration Normoactive bowel sounds No hepatomegaly, No splenomegaly No palpable mass No abdominal wall hernia noted Skin: Normal temperature, tone, texture, turgor No induration No subcutaneous nodules No rash, lesions No ulcers Extremities: No digital cyanosis No clubbing Pedal pulses intact and symmetrical Radial pulses intact and symmetrical No calf tenderness Psychiatric: Alert and oriented to person, place and time Appropriate affect fair judgment Neuro Muscles Strength 5/5 in all 4 extremities Sensation to light touch grossly present throughout Cranial nerves II-XII grossly intact No focal sensory deficits Lymphatics: no palpable supraclavicular , or inguinal lymph nodes Results CBC & Chem 7: 04/15/17 14:03 04/15/17 14:03 Labs: Abnormal Lab Results - Last 24 Hours (Table) 04/15/17 Range/Units 14:03 Chloride 108 H (98-107) mmol/L Carbon Dioxide 21 L (22-30) mmol/L Glucose 72 L (74-99) mg/dL Thrombosis Risk Factor Assmnt - Choose All That Apply Any of the Below Risk Factors Present?: Yes Each Factor Represents 1 point: Age 41-60 years Other Risk Factors: No Other congenital or acquired thrombophilia - If yes, enter type in comment: No Thrombosis Risk Factor Assessment Total Risk Factor Score: 1 Thrombosis Risk Factor Assessment Level: Low Risk Assessment and Plan Assessment: 42-year-old female with past medical history of MS, and [place]'s angina in June 2016. Presented due to dental abscess over the right maxillary molars , failed outpatient therapy with Augmentin due to progressive swelling and pain over the right side of the face and neck. Patient denies symptoms of hoarseness of voice, dysphagia, dyspnea, but she reports minimal drooling. She is presented for further care (1) Dental infection Narrative/Plan: CT of the neck soft tissue did not show any fluid collection Inflammatory changes in the subcutaneous tissue lateral to the maxillary right molars was noted Unasyn IV Oral surgeon consultation Patient currently has no evidence of airway compromise we'll continue to monitor Symptomatic control of of pain Blood cultures Current Visit: Yes Status: Acute Code(s): K04.7 - PERIAPICAL ABSCESS WITHOUT SINUS SNOMED Code(s): 011381999 (2) History of multiple sclerosis Narrative/Plan: Currently stable patient receives outpatient infusion therapy every month Current Visit: Yes Status: Acute Code(s): Z86.69 - PERSONAL HISTORY OF DIS OF THE NERVOUS SYS AND SENSE ORGANS SNOMED Code(s): 788995953 (3) DVT prophylaxis Narrative/Plan: Heparin subcu 3 times a day Current Visit: Yes Status: Acute Code(s): FDD1828 - SNOMED Code(s): 180808369 (4) Elevated blood pressure reading Narrative/Plan: No history of hypertension this is possibly driven by pain and anxiety we'll hold on starting any antihypertensive medication for now we'll continue to monitor blood pressure readings Patient is asymptomatic at this point Current Visit: Yes Status: Acute Code(s): R03.0 - ELEVATED BLOOD-PRESSURE READING, W/O DIAGNOSIS OF HTN SNOMED Code(s): 21168874 (5) Failure of outpatient treatment Current Visit: Yes Status: Acute Code(s): Z78.9 - OTHER SPECIFIED HEALTH STATUS SNOMED Code(s): 923996292 Plan: Surrogate decision-maker: Mother CODE STATUS: Full code DVT prophylaxis: Heparin subcu Discussed with: Patient, ER, family, RN Anticipated discharge: [address]: Home* A total of 40 minutes was spent on the care of this complex patient more than 50 % of the time was spent in counseling and care coordination.
[2017-04-15] MEDS: ALPRAZolam 0.25 MG TAB PO PRN (18:36)
[2017-04-15] MEDS: DULoxetine HCL 60 MG CAPSULE.DR PO SCH (21:11)
[2017-04-15] MEDS: ZOLPIDEM 10 MG TAB PO SCH (21:11)
[2017-04-15] MEDS: BACLOFEN 10 MG TAB PO SCH (21:11)
[2017-04-16] MEDS: AMPICILLIN-SULBACTAM 3 GM in SODIUM CHLORIDE 0.9% 100 ML IVPB SCH ×3 (00:33→15:03)
[2017-04-16] MEDS: HYDROmorphone 0.5 MG/0.5 ML SYRINGE IVP PRN (01:46)
[2017-04-16] MEDS: HYDROcodone/APAP 7.5-325MG 1 EACH TAB PO PRN ×2 (03:16→14:25)
[2017-04-16] MEDS ORDERED: HYDROmorphone 2 MG/ML 1 ML SYRINGE IVP PRN (03:32)
[2017-04-16] MEDS: ALPRAZolam 0.25 MG TAB PO PRN (03:48)
[2017-04-16] MEDS: HYDROmorphone 2 MG/ML 1 ML SYRINGE IVP PRN ×3 (04:25→11:02)
[2017-04-16 08:06] LABS: Basophils # (A) 0.1 k/uL (0-0.2); Basophils % (A) 1 %; CH 31.8; CHCM 32.7; Eosinophils # (A) 0.1 k/uL (0-0.7); Eosinophils % (A) 2 %; HCT 36.2 % (34.0-46.0); HDW 3.07; HGB 11.9 gm/dL (11.4-16.0); Luc # (Auto) 0.16; Luc % (Auto) 3; Lymphocytes # (A) 1.4 k/uL (1.0-4.8); Lymphocytes % (A) 26 %; MCH 32.1 pg (25.0-35.0); MCHC 32.7 g/dL (31.0-37.0); MCV 98.1 fL (80.0-100.0); Mean Platelet Volume 7.6; Monocytes # (A) 0.6 k/uL (0-1.0); Monocytes % (A) 11 %; Neutrophils # (A) 3.2 k/uL (1.3-7.7); Neutrophils % (A) 58 %; RBC 3.69 m/uL (3.80-5.40); RDW 15.2 % (11.5-15.5); WBC 5.6 k/uL (3.8-10.6); WBC (Perox) 6.04
[2017-04-16] MEDS: IBUPROFEN 800 MG TAB PO SCH ×3 (08:13→20:33)
[2017-04-16] MEDS: BACLOFEN 10 MG TAB PO SCH ×2 (08:15→20:34)
[2017-04-16] MEDS: buPROPion SR 100 MG TABLET.ER PO SCH (08:15)
[2017-04-16] MEDS: DULoxetine HCL 60 MG CAPSULE.DR PO SCH ×2 (08:15→20:34)
[2017-04-16] MEDS: MODAFINIL 200 MG TAB PO SCH (08:26)
[2017-04-16 08:35] LABS: Anion Gap 7 mmol/L; Blood Urea Nitrogen 9 mg/dL (7-17); Calcium 9.1 mg/dL (8.4-10.2); Carbon Dioxide 26 mmol/L (22-30); Chloride 104 mmol/L (98-107); Glucose 103 mg/dL (74-99); Non-African American GFR(MDRD) >60 (>60 ml/min/1.73 sqM); Sodium 137 mmol/L (137-145)
[2017-04-16] MEDS ORDERED: diphenhydrAMINE 25 MG CAP PO PRN (11:06)
[2017-04-16] MEDS ORDERED: ALPRAZolam 0.5 MG TAB PO PRN (12:37)
--- NOTE | 2017-04-16 12:46 | P.PN ---
Subjective Progress Note Date: 04/16/17 Principal diagnosis: The patient is a 42-year-old female with a history of blood weeks angina back in June of this year who presented again with right facial swelling by her right jawline and into her right neck area. All apparently after failed outpatient therapy with oral antibiotics Patient does not report any improvement of the swelling she does report the pain is adequately controlled, reports some difficulty swallowing or vertigo did well with breakfast today. She denies any subjective fevers chills night sweats, she does report some anxiety Objective - Vital Signs Vital signs: Vital Signs Temp 97.0 F L 04/16/17 07:00 Pulse 87 04/16/17 07:00 Resp 18 04/16/17 07:00 BP 142/92 04/16/17 07:00 Pulse Ox 98 04/16/17 07:00 Intake & Output 04/15/17 04/16/17 04/16/17 18:59 06:59 18:59 Intake Total 100 Balance 100 Weight 63.5 kg Intake: Intake, IV Titration 100 Amount Ampicillin-Sulbactam 3 gm 100 In Sodium Chloride 0.9% 100 ml @ 100 mls/hr IVPB Q8HR [facility] Rx#:[id number] Other: # Voids 2 - Exam Constitutional: No acute distress, conversant, pleasant Eyes: Anicteric sclerae, moist conjunctiva, no lid-lag, PERRLA ENMT: Limited exam patient could not fully open her mouth I could not visualize the uvula tongue is not swollen there is no redness over the maxillary or mandibular gums. There is no visible discharge. There is some swelling over the right molars. Neck: There is some swelling over the right side of the face with some fullness on the right side of the neck no tenderness to palpation of the neck, palpable submandibular and cervical lymph nodes bilaterally Neck:Supple, FROM, no masses, or JVD, No carotid bruits; No thyromegaly Lungs: Clear to auscultation, Clear to percussion, Normal respiratory effort, no accessory muscle use Cardiovascular: Heart regular in rate and rhythm, No murmurs, gallops, or rubs no peripheral edema Abdominal: Soft Nontender, nom distended, no guarding, no rebound or rigidity, Normoactive bowel sounds No hepatomegaly, No splenomegaly, No palpable mass No abdominal wall hernia noted Skin: Normal temperature, tone, texture, turgor, No induration No subcutaneous nodules, No rash, lesions, No ulcers Extremities:No digital cyanosis No clubbing, Pedal pulses intact and symmetrical Radial pulses intact and symmetrical Normal gait and station, No calf tenderness Psychiatric: Alert and oriented to person, place and time, Appropriate affect Intact judgement Neuro: Muscles Strength 5/5 in all 4 extremities, Sensation to light touch grossly present throughout, Cranial nerves II-XII grossly intact. No focal sensory deficits - Labs CBC & Chem 7: 04/16/17 07:22 04/16/17 07:22 Labs: Abnormal Lab Results - Last 24 Hours (Table) 04/15/17 04/16/17 04/16/17 Range/Units 14:03 07:22 07:22 RBC 3.69 L (3.80-5.40) m/uL Chloride 108 H (98-107) mmol/L Carbon Dioxide 21 L (22-30) mmol/L Creatinine 0.48 L (0.52-1.04) mg/dL Glucose 72 L 103 H (74-99) mg/dL Assessment and Plan (1) Abscess or cellulitis of submandibular region Narrative/Plan: * CT of the neck showing some new inflammatory changes in the subcutaneous tissues lateral to the right maxilla no drainable fluid collection mild cervical adenopathy * Continue with empiric IV antibiotics with Unasyn, patient afebrile without leukocytosis * Awaiting ENT and oral surgery consultation * Continue with [place] and ibuprofen for pain Current Visit: Yes Status: Acute Code(s): FIV7048 - SNOMED Code(s): 089984641 (2) Dental infection Narrative/Plan: * Treatment as above Current Visit: Yes Status: Acute Code(s): K04.7 - PERIAPICAL ABSCESS WITHOUT SINUS SNOMED Code(s): 404963575 (3) Anxiety Narrative/Plan: * We'll increase Serax when necessary to 1 mg by mouth 3 times a day as needed Current Visit: Yes Status: Acute Code(s): F41.9 - ANXIETY DISORDER, UNSPECIFIED SNOMED Code(s): 90023443 (4) Elevated blood pressure reading Narrative/Plan: * Likely secondary to anxiety we'll continue to monitor Current Visit: Yes Status: Acute Code(s): R03.0 - ELEVATED BLOOD-PRESSURE READING, W/O DIAGNOSIS OF HTN SNOMED Code(s): 10490341
[2017-04-16] MEDS: MORPHINE SULFATE 4 MG/ML SYRINGE IVP PRN (17:15)
[2017-04-16] MEDS: ZOLPIDEM 10 MG TAB PO SCH (20:33)
[2017-04-16] MEDS: HYDROcodone/APAP 7.5-325MG 1 EACH TAB PO SCH (20:33)
[2017-04-17] MEDS: AMPICILLIN-SULBACTAM 3 GM in SODIUM CHLORIDE 0.9% 100 ML IVPB SCH ×4 (00:19→23:41)
[2017-04-17] MEDS: MORPHINE SULFATE 4 MG/ML SYRINGE IVP PRN ×5 (00:32→23:32)
[2017-04-17] MEDS: HYDROcodone/APAP 7.5-325MG 1 EACH TAB PO SCH ×4 (04:35→20:53)
[2017-04-17] MEDS: MODAFINIL 200 MG TAB PO SCH (08:18)
[2017-04-17] MEDS: BACLOFEN 10 MG TAB PO SCH ×2 (08:18→20:54)
[2017-04-17] MEDS: DULoxetine HCL 60 MG CAPSULE.DR PO SCH ×2 (08:18→20:54)
[2017-04-17] MEDS: buPROPion SR 100 MG TABLET.ER PO SCH (08:18)
[2017-04-17] MEDS: IBUPROFEN 800 MG TAB PO SCH ×3 (08:18→20:54)
--- NOTE | 2017-04-17 13:32 | P.PN ---
Subjective Progress Note Date: 04/17/17 Principal diagnosis: The patient is a 42-year-old female with a history of blood weeks angina back in June of this year who presented again with right facial swelling by her right jawline and into her right neck area. All apparently after failed outpatient therapy with oral antibiotics Patient does not report any improvement of the swelling she does report the pain is adequately controlled with the current regimen of scheduled Percocet with morphine for breakthrough she reports some improvement in the swelling on the right midcheek area she does report what she describes as a omid of swelling in the right submandibular/anterior cervical area. She denies any fevers or chills, Objective - Vital Signs Vital signs: Vital Signs Temp 97.3 F L 04/17/17 07:00 Pulse 95 04/17/17 07:00 Resp 18 04/17/17 07:00 BP 146/94 04/17/17 07:00 Pulse Ox 98 04/17/17 07:00 Intake & Output 04/16/17 04/17/17 04/17/17 18:59 06:59 18:59 Intake Total 1600 Balance 1600 Intake: Oral 1600 Other: # Voids 1 2 1 - Exam Constitutional: No acute distress, conversant, pleasant Eyes: Anicteric sclerae, moist conjunctiva, no lid-lag, PERRLA ENMT: Limited exam patient could not fully open her mouth I could not visualize the uvula tongue is not swollen there is no redness over the maxillary or mandibular gums. There is no visible discharge. There is some swelling over the right molars. Neck: There is some swelling over the right side of the face with some fullness on the right side of the neck no tenderness to palpation of the neck, palpable submandibular and cervical lymph nodes bilaterally Neck:Supple, FROM, no masses, or JVD, No carotid bruits; No thyromegaly Lungs: Clear to auscultation, Clear to percussion, Normal respiratory effort, no accessory muscle use Cardiovascular: Heart regular in rate and rhythm, No murmurs, gallops, or rubs no peripheral edema Abdominal: Soft Nontender, nom distended, no guarding, no rebound or rigidity, Normoactive bowel sounds No hepatomegaly, No splenomegaly, No palpable mass No abdominal wall hernia noted Skin: Normal temperature, tone, texture, turgor, No induration No subcutaneous nodules, No rash, lesions, No ulcers Extremities:No digital cyanosis No clubbing, Pedal pulses intact and symmetrical Radial pulses intact and symmetrical Normal gait and station, No calf tenderness Psychiatric: Alert and oriented to person, place and time, Appropriate affect Intact judgement Neuro: Muscles Strength 5/5 in all 4 extremities, Sensation to light touch grossly present throughout, Cranial nerves II-XII grossly intact. No focal sensory deficits - Labs CBC & Chem 7: 04/16/17 07:22 04/16/17 07:22 Labs: Microbiology - Last 24 Hours (Table) 04/15/17 14:03 Blood Culture - Preliminary Blood No Growth after 24 hours Assessment and Plan (1) Abscess or cellulitis of submandibular region Narrative/Plan: * CT of the neck showing some new inflammatory changes in the subcutaneous tissues lateral to the right maxilla no drainable fluid collection mild cervical adenopathy * Continue with empiric IV antibiotics with Unasyn, patient afebrile without leukocytosis * Awaiting ENT and oral surgery consultation * Continue with [place] and ibuprofen scheduled with morphine for breakthrough pain Current Visit: Yes Status: Acute Code(s): [id number] - SNOMED Code(s): 106938849 (2) Dental infection Narrative/Plan: * Treatment as above Current Visit: Yes Status: Acute Code(s): K04.7 - PERIAPICAL ABSCESS WITHOUT SINUS SNOMED Code(s): 751023022 (3) Anxiety Narrative/Plan: * We'll increase Serax when necessary to 1 mg by mouth 3 times a day as needed Current Visit: Yes Status: Acute Code(s): F41.9 - ANXIETY DISORDER, UNSPECIFIED SNOMED Code(s): 06239112 (4) Elevated blood pressure reading Current Visit: Yes Status: Acute Code(s): R03.0 - ELEVATED BLOOD-PRESSURE READING, W/O DIAGNOSIS OF HTN SNOMED Code(s): 01217560
--- NOTE | 2017-04-17 20:49 | CONS ---
CONSULTATION CHIEF COMPLAINT/HISTORY OF PRESENT ILLNESS: The patient presents to the hospital on the with increase in facial pain and swelling. She gives a history of tooth pain of approximately 2 weeks duration. She went in on to see a dentist and on Sunday she was supposed to get a root canal, but there was too much inspection. The dentist started her antibiotics, amoxicillin 500 mg 3 times a day at that time, but Sunday the she had increased pain and swelling, so she decided to come to the emergency room to seek care. She was admitted, put on IV Unasyn and has since improved dramatically with the swelling. Her pain is also better. IMAGING: No obvious loculation or abscess noted. There is diffuse swelling of the right side, which clinically has improved today since imaging. Afebrile. Vital signs stable. LIMITED PHYSICAL EXAM: The patient is sitting up in bed eating dinner, comfortable, no apparent distress. She is able to open her mouth. Moist mucous membranes. Her buccal gingiva was swollen adjacent to tooth #3. She did have what appeared to be a temporary filling in tooth #3. She has got severe attrition of enamel surfaces of all of her teeth. The swelling is less than half a cm in size is contained to gingiva adjacent to the tooth. The patient's swelling is remarkable to me, but she does have a palpable lymph node in the submandibular area, which is less than a cm and mobile. Posterior oropharynx is visualized. No soft tissue swelling. ASSESSMENT: Status post dental infection associated with tooth #3. PLAN: The patient should continue IV antibiotics until stable for discharge. At that time arrangements to be made as the patient is planning on seeing me in my office on Sunday for extraction of tooth #3 and evaluation of the remaining dentition. She had a panoramic x-ray that I reviewed from June, but at Sunday appointment will probably get a new panoramic x-ray to ascertain her caries right. The patient was amenable to this plan and agreed to come to my office prepared for sedation meaning n.p.o. for 6 hours ahead of time as well as having escort, her mother was going to drive her. Please discharge the patient home on appropriate oral antibiotics. MMODL / IJN: [id number] /
[2017-04-17] MEDS: ZOLPIDEM 10 MG TAB PO SCH (20:54)
[2017-04-18] MEDS: HYDROcodone/APAP 7.5-325MG 1 EACH TAB PO SCH ×3 (01:03→13:08)
[2017-04-18 02:12] VITALS: PULSE 85
[2017-04-18] MEDS: MORPHINE SULFATE 4 MG/ML SYRINGE IVP PRN ×2 (03:23→10:39)
[2017-04-18 07:34] VITALS: BP 148/93; RESP 16; TEMP 97.4
[2017-04-18] MEDS: BACLOFEN 10 MG TAB PO SCH (08:15)
[2017-04-18] MEDS: AMPICILLIN-SULBACTAM 3 GM in SODIUM CHLORIDE 0.9% 100 ML IVPB SCH ×2 (08:15→14:52)
[2017-04-18] MEDS: DULoxetine HCL 60 MG CAPSULE.DR PO SCH (08:15)
[2017-04-18] MEDS: IBUPROFEN 800 MG TAB PO SCH ×2 (08:20→14:57)
[2017-04-18] MEDS: buPROPion SR 100 MG TABLET.ER PO SCH (08:44)
[2017-04-18] MEDS: MODAFINIL 200 MG TAB PO SCH (08:44)
--- NOTE | 2017-04-18 14:46 | P.DS ---
Providers Date of admission: 04/15/17 15:22 Expected date of discharge: 04/18/17 Attending physician: Sarah Potts MD Consults: 04/15/17 15:17 Consult Physician Urgent Consulting Provider: Luksa Noe Consult Reason/Comments: dental infection Do you want consulting provider notified?: Yes 04/18/17 09:02 Consult Physician Routine Consulting Provider: Gui Siddiqui Consult Reason/Comments: failed dental infection, facial edema Do you want consulting provider notified?: Yes Primary care physician: Luly Caldwell - Discharge Diagnosis(es) (1) Abscess or cellulitis of submandibular region Current Visit: Yes Status: Acute (2) Dental infection Current Visit: Yes Status: Acute (3) Anxiety Current Visit: Yes Status: Acute (4) Elevated blood pressure reading Current Visit: Yes Status: Acute Hospital Course: patient is a 42-year-old female that presented support from the ear on ER he was admitted with a dental infection and right submandibular/facial cellulitis, she has a history of blood weeks angina and multiple sclerosis. She was started on empiric IV antibiotics with Unasyn tissue CT of the neck was consistent with some inflammatory changes in the subcutaneous tissue lateral to the right maxilla with no discrete fluid collection or abscess found. Oral surgery was consulted to see the patient she was seen by Dr. Lawler who plans to have the patient follow-up in his [facility] on Sunday. The patient' s swelling gradually improved, she had no trismus on her exam and was eating well prior to discharge. She was seen by ENT and was determined stable for discharge. She was subsequently discharged home on Augmentin for 12 more days. The patient had actually failed outpatient therapy and amoxicillin and not Augmentin as previously thought. she also had new prescriptions for [place] 7.5/ 325mg by mouth every 6 hours when necessary pain #20, and Xanax 1 mg by mouth 3 times a day when necessary anxiety #9. this discharge process or possibly 35 minutes Patient Condition at Discharge: Stable Plan - Discharge Summary Discharge Rx Participant: Yes New Discharge Prescriptions: New ALPRAZolam [Xanax] 1 mg PO TID PRN #9 tab PRN Reason: Agitation Or Acute Anxiety HYDROcodone/APAP 7.5-325MG [[place] 7.5-325] 1 each PO Q6H #20 tab Continue Ibuprofen [Motrin] 800 mg PO TID Zolpidem Tartrate 10 mg PO HS Modafinil [Provigil] 200 mg PO DAILY Baclofen [Lioresal] 10 mg PO BID DULoxetine HCL [Cymbalta] 60 mg PO BID Tysabri 1 applic IV Q28D buPROPion HCL [Wellbutrin SR] 100 mg PO DAILY HYDROcodone/APAP 7.5-325MG [[place] 7.5-325] 1 tab PO QID PRN PRN Reason: Pain Amoxicillin/Potassium Clav [Augmentin 875-125 Tablet] 1 tab PO Q12HR #24 tablet Discharge Medication List Baclofen [Lioresal] 10 mg PO BID 07/08/16 [History] DULoxetine HCL [Cymbalta] 60 mg PO BID 07/08/16 [History] Ibuprofen [Motrin] 800 mg PO TID 07/08/16 [History] Modafinil [Provigil] 200 mg PO DAILY 07/08/16 [History] Tysabri 1 applic IV Q28D 07/08/16 [History] Zolpidem Tartrate 10 mg PO HS 07/08/16 [History] HYDROcodone/APAP 7.5-325MG [[place] 7.5-325] 1 tab PO QID PRN 04/15/17 [History] buPROPion HCL [Wellbutrin SR] 100 mg PO DAILY 04/15/17 [History] ALPRAZolam [Xanax] 1 mg PO TID PRN #9 tab 04/18/17 [Rx] Amoxicillin/Potassium Clav [Augmentin 875-125 Tablet] 1 tab PO Q12HR #24 tablet 04/18/17 [Rx] HYDROcodone/APAP 7.5-325MG [[place] 7.5-325] 1 each PO Q6H #20 tab 04/18/17 [Rx] Follow up Appointment(s)/Referral(s): [facility], [NON-STAFF] - Jayme Lawler DDS [STAFF PHYSICIAN] - 04/20/17 (please call [place] office to schedule an appointment for Sunday) Luly Caldwell DO [Primary Care Provider] - 1-2 days Discharge Disposition: HOME SELF-CARE
[2017-04-18] MEDS ORDERED: INFLUENZA VACCINE (6 MOS+) 60 MCG/0.5 ML SYRINGE IM ONE (14:58)
[2017-04-18] MEDS ORDERED: PNEUMOCOCCAL VACC-PNEUMOVAX 23 25 MCG/0.5 ML VIAL IM ONE (15:01)
== END 2017-04-18 15:48 | disposition home or self-care (01) | DRG 158 ==
LOC: EC 13:21 → 4MS4W 15:22
PROVIDERS: ADMIT Internal Medicine; ATTEND Internal Medicine
DX: K04.7 Periapical abscess without sinus (principal); K12.2 Cellulitis and abscess of mouth; G35 Multiple sclerosis; L03.211 Cellulitis of face; F41.9 Anxiety disorder, unspecified; Z80.0 Family history of malignant neoplasm of digestive organs; Z82.49 Family history of ischemic heart disease and other diseases of the circulatory system; Z87.891 Personal history of nicotine dependence
CPT/HCPCS: 36415; 70491; 80048; 83605; 85025; 85610; 85730; 87040; 90686; 90732; 96374; 96375; 96376; 99284

== ENCOUNTER → 2019-06-18 | Outpatient (CLI) | payer BC ==
--- NOTE | 2019-06-20 07:42 | MR ---
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 Orbital protocol. FINDINGS: Globes are intact bilaterally. Rectus muscles appear symmetric and within normal limits. In traorbital fat is preserved. Optic nerves appear suspicious and within normal limits. There is no aranza picious enhancement. Pituitary gland is normal in size within sella turcica. Pituitary stalk shows no rmal enhancement in the midline coronal image 22. Optic chiasm is not effaced. No gross hydrocephalus. Visualized paranasal sinuses are clear. Craniocervical junction is maintained . IMPRESSION: Unremarkable study. When outside CT and MRI become available an addendum will be issued.
== END | disposition home or self-care (01) ==
LOC: RADMRIMAIN 15:20
PROVIDERS: ATTEND Ophthalmology
DX: H46.9 Unspecified optic neuritis (principal)
CPT/HCPCS: 70543; A9585

== ENCOUNTER → 2019-11-14 | Outpatient (CLI) | payer BC ==
--- NOTE | 2019-11-14 12:40 | MR ---
EXAMINATION TYPE: MR brain wo/w con DATE OF EXAM: 11/14/2019 COMPARISON: Brain MRI from outside institution 05/24/2019 HISTORY: 2 strokes in 10 days, Blindness, MS TECHNIQUE: Multiplanar, multisequence images of the brain and brainstem is performed without and with IV contras t, utilizing 7.5 mL intravenous Gadavist . FINDINGS: Diffusion weighted images demonstrate no evidence of a recent infarct or other diffusion ab normality. There is no extra-axial fluid collection. A new focus of increased signal is present inve rsion recovery T2-weighted sequences within the thalamus on the right, abnormal signal also present w ithin the right cerebral peduncle as compared to prior. Multiple stable hyperintensities are present within the subcortical, periventricular, pericallosal white matter, there are differences in techniqu e compared to prior exam. Some lesions appear more conspicuous possibly due to different machines. A few new lesions may be present, 5-10 in number. No abnormal enhancement however. The ventricular syst em and cisternal spaces are normal in size and appearance. The brain volume is age appropriate. Midline structures demonstrate normal morphology. The craniocervical junction appears within normal limits. Post contrast images demonstrate no abnormal enhancement. The dural venous sinuses appear pa tent. The visualized sinuses are clear and the globes are intact. IMPRESSION: There is some progression abnormal signal within the brain, no enhancing plaques however. No restricted diffusion to suggest subacute ischemia.
== END | disposition home or self-care (01) ==
LOC: RADMRIMAIN 09:56
PROVIDERS: ATTEND Psychiatry & Neurology Neurology
DX: R93.0 Abnormal findings on diagnostic imaging of skull and head, not elsewhere classified (principal); Z71.89 Other specified counseling; G35 Multiple sclerosis
CPT/HCPCS: 70553; A9585

== ENCOUNTER 2020-02-25 11:17 | Inpatient (IN) | payer BC ==
[2020-02-25] MEDS ORDERED: methylPREDNISolone SOD SUCCI 125 MG/2 ML VIAL IV STA (11:47)
[2020-02-25] MEDS ORDERED: SODIUM CHLORIDE 0.9% 1,000 ML IV STA ×2 (11:47)
[2020-02-25] MEDS ORDERED: IPRATROPIUM-ALBUTEROL 3 ML NEB INHALATION STA (11:47)
--- NOTE | 2020-02-25 11:50 | ED ---
General Adult HPI - General Source: patient, RN notes reviewed, old records reviewed, Caregiver Mode of arrival: ambulatory Limitations: physical limitation <Vikki Alvarado - Last Filed: 02/25/20 13:52> <Angle Ortiz - Last Filed: 02/26/20 00:31> - General Chief complaint: Shortness of Breath Stated complaint: chest congestion Time Seen by Provider: 02/25/20 11:26 - History of Present Illness Initial comments: Patient is a 44-year-old female with a stated past medical history who presents emergency department today for evaluation complaints of cough since Sunday shortness of breath and fatigue and malaise. Patient reportedly finished steroids yesterday with history of MS on a steroid taper. Patient states that she's been wheezy and has had a productive cough. Denies any history of sick contacts. Denies any recorded fevers at home. Patient is blind. She's had a history of strokes. (Vikki Alvarado) - Related Data Home Medications Medication Instructions Recorded Confirmed Aspirin EC [Ecotrin Low Dose] 81 mg PO DAILY 02/25/20 02/25/20 Atorvastatin [Lipitor] 80 mg PO HS 02/25/20 02/25/20 Citalopram Hydrobromide [CeleXA] 20 mg PO DAILY 02/25/20 02/25/20 Magnesium Gluconate [Magonate] 500 mg PO DAILY@1200 02/25/20 02/25/20 Ocrevos 1 dose IV Q180D 02/25/20 02/25/20 Pantoprazole Sodium [Protonix] 40 mg PO BID@0800,1200 02/25/20 02/25/20 Solu Medrol 1 dose IV DIRECTED 02/25/20 02/25/20 amLODIPine [Norvasc] 5 mg PO DAILY 02/25/20 02/25/20 clonazePAM [KlonoPIN] 0.5 mg PO BID 02/25/20 02/25/20 lisinopriL [Zestril] 20 mg PO BID 02/25/20 02/25/20 traZODone HCL [Desyrel] 100 mg PO HS 02/25/20 02/25/20 Allergies Allergy/AdvReac Type Severity Reaction Status Date / Time No Known Allergies Allergy Verified 02/25/20 12:08 Review of Systems ROS Other: All systems not noted in ROS Statement are negative. <Vikki Alvarado - Last Filed: 02/25/20 13:52> ROS Other: All systems not noted in ROS Statement are negative. <Angle Ortiz - Last Filed: 02/26/20 00:31> ROS Statement: Those systems with pertinent positive or pertinent negative responses have been documented in the HPI. Past Medical History Past Medical History: CVA/TIA, Musculoskeletal Disorder, Neurologic Disorder Additional Past Medical History / Comment(s): arden GRAHAM angina 06/2016. May 23 2020 Blind History of Any Multi-Drug Resistant Organisms: MRSA Date of last positivie culture/infection: 2010 MDRO Source:: right leg Past Surgical History: No Surgical Hx Reported Additional Past Surgical History / Comment(s): Dental surgery in June 2016 Past Anesthesia/Blood Transfusion Reactions: No Reported Reaction Past Psychological History: No Psychological Hx Reported Smoking Status: Never smoker Past Alcohol Use History: Rare Past Drug Use History: None Reported - Past Family History Mother Family Medical History: Hypertension Additional Family Medical History / Comment(s): Heart stents Father Family Medical History: Cancer, Hypertension Additional Family Medical History / Comment(s): esophageal and rectal CA Brother(s) Additional Family Medical History / Comment(s): 2 brothers 1 has MS and 1 has sarcoidosis Sister(s) Additional Family Medical History / Comment(s): Lupus, MS <Vikki Alvarado - Last Filed: 02/25/20 13:52> General Exam Limitations: physical limitation General appearance: alert, in no apparent distress Head exam: Present: atraumatic, normocephalic, normal inspection Eye exam: Present: normal appearance, PERRL, EOMI, other (She is blind). Absent: scleral icterus, conjunctival injection, periorbital swelling ENT exam: Present: normal exam, mucous membranes moist Neck exam: Present: normal inspection. Absent: tenderness, meningismus, lymphadenopathy Respiratory exam: Present: wheezes, rhonchi. Absent: normal lung sounds b ilaterally, respiratory distress, rales, stridor Cardiovascular Exam: Present: normal rhythm, normal heart sounds. Absent: regular rate, systolic murmur, diastolic murmur, rubs, gallop, clicks GI/Abdominal exam: Present: soft, normal bowel sounds. Absent: distended, tenderness, guarding, rebound, rigid Extremities exam: Present: normal inspection, full ROM, normal capillary refill. Absent: tenderness, pedal edema, joint swelling, calf tenderness Back exam: Present: normal inspection Neurological exam: Present: alert, oriented X3, CN II-XII intact Psychiatric exam: Present: normal affect, normal mood Skin exam: Present: warm, dry, intact, normal color. Absent: rash <ChristianoVikki - Last Filed: 02/25/20 13:52> - General Exam Comments Initial Comments: Alert and oriented 44-year-old female. Patient appears somewhat fatigued patient's oxygenation is 91% on room air. Placed on 2 L of oxygen nasal cannula. (Vikki Alvarado) Course Vital Signs 02/25/20 02/25/20 02/25/20 11:19 12:27 12:55 Temperature 97.1 F L Pulse Rate 111 H 85 90 Respiratory 20 12 Rate Blood Pressure 130/87 138/98 O2 Sat by Pulse 92 L 96 Oximetry 02/25/20 02/25/20 13:09 14:00 Temperature 99 F Pulse Rate 87 86 Respiratory 12 Rate Blood Pressure 146/93 O2 Sat by Pulse 97 Oximetry EKG Findings - EKG Comments: EKG Findings:: EKG shows normal sinus rhythm anterior grand mal considering to ischemia. Abnormal EKG. Ventricular rate of 90 bpm. Verbal 144 ms. QS durati on is 102 ms. QT QTc is 366/447 ms. <Vikki Alvarado - Last Filed: 02/25/20 13:52> Medical Decision Making - Lab Data Result diagrams: 02/25/20 12:24 02/25/20 12:24 - Radiology Data Radiology results: report reviewed <ChristianoVikki - Last Filed: 02/25/20 13:52> - Lab Data Result diagrams: 02/25/20 12:24 02/25/20 12:24 <Angle Ortiz - Last Filed: 02/26/20 00:31> - Medical Decision Making 4-year-old female with comorbidities including MS and is blind presents emergency department today for evaluation first cough congestion shortness of breath. She is on be hypoxic 91% on room air. No recorded fevers. Patient has rhonchorous lung sounds and wheezing. Patient was given IV Solu-Medrol and breathing treatments. She is to feel well. Chest x-ray shows evidence of bilateral pneumonia. Patient be started on Rocephin and azithromycin. Blood cultures obtained. Patient will have Coban testing as well. Discussed this with Dr. Ortiz discussed with [facility] and will admit the Patient at this time. (Vikki Alvarado) I was available for consultation in the emergency department. The history and physical exam were done by the midlevel provider. I was consulted for this patients care. I reviewed the case with the midlevel provider and based on their presentation of the patient, I agree with the assessment, medical decision making and plan of care as documented. Chart was dictated using [employer] dictation software. Attempts were made to correct any dictation errors however some typographical errors may persist. Patient was seen during a national state of emergency due to the Covid-19 pandemic. (Angle Ortiz) - Lab Data Lab Results 02/25/20 02/25/20 02/25/20 Range/Units 12:24 12:24 12:24 WBC 17.0 H (3.8-10.6) k/uL RBC 4.14 (3.80-5.40) m/uL Hgb 10.9 L (11.4-16.0) gm/dL Hct 34.3 (34.0-46.0) % MCV 82.8 (80.0-100.0) fL MCH 26.3 (25.0-35.0) pg MCHC 31.8 (31.0-37.0) g/dL RDW 16.0 H (11.5-15.5) % Plt Count 410 (150-450) k/uL Neutrophils % 85 % Lymphocytes % 8 % Monocytes % 6 % Eosinophils % 0 % Basophils % 0 % Neutrophils # 14.6 H (1.3-7.7) k/uL Lymphocytes # 1.3 (1.0-4.8) k/uL Monocytes # 1.0 (0-1.0) k/uL Eosinophils # 0.0 (0-0.7) k/uL Basophils # 0.0 (0-0.2) k/uL Hypochromasia Slight PT 10.0 (9.0-12.0) sec INR 1.0 (<1.2) APTT 22.5 (22.0-30.0) sec Sodium 136 L (137-145) mmol/L Potassium 4.1 (3.5-5.1) mmol/L Chloride 106 (98-107) mmol/L Carbon Dioxide 25 (22-30) mmol/L Anion Gap 5 mmol/L BUN 22 H (7-17) mg/dL Creatinine 0.56 (0.52-1.04) mg/dL Est GFR (CKD-EPI)AfAm >90 (>60 ml/min/1.73 sqM) Est GFR (CKD-EPI)NonAf >90 (>60 ml/min/1.73 sqM) Glucose 85 (74-99) mg/dL Plasma Lactic Acid Chas (0.7-2.0) mmol/L Calcium 8.9 (8.4-10.2) mg/dL Magnesium 2.5 H (1.6-2.3) mg/dL Total Bilirubin 0.3 (0.2-1.3) mg/dL AST 18 (14-36) U/L ALT 17 (4-34) U/L Alkaline Phosphatase 48 (38-126) U/L Troponin I (0.000-0.034) ng/mL NT-Pro-B Natriuret Pep pg/mL Total Protein 5.7 L (6.3-8.2) g/dL Albumin 3.7 (3.5-5.0) g/dL 02/25/20 02/25/20 02/25/20 Range/Units 12:24 12:24 12:24 WBC (3.8-10.6) k/uL RBC (3.80-5.40) m/uL Hgb (11.4-16.0) gm/dL Hct (34.0-46.0) % MCV (80.0-100.0) fL MCH (25.0-35.0) pg MCHC (31.0-37.0) g/dL RDW (11.5-15.5) % Plt Count (150-450) k/uL Neutrophils % % Lymphocytes % % Monocytes % % Eosinophils % % Basophils % % Neutrophils # (1.3-7.7) k/uL Lymphocytes # (1.0-4.8) k/uL Monocytes # (0-1.0) k/uL Eosinophils # (0-0.7) k/uL Basophils # (0-0.2) k/uL Hypochromasia PT (9.0-12.0) sec INR (<1.2) APTT (22.0-30.0) sec Sodium (137-145) mmol/L Potassium (3.5-5.1) mmol/L Chloride (98-107) mmol/L Carbon Dioxide (22-30) mmol/L Anion Gap mmol/L BUN (7-17) mg/dL Creatinine (0.52-1.04) mg/dL Est GFR (CKD-EPI)AfAm (>60 ml/min/1.73 sqM) Est GFR (CKD-EPI)NonAf (>60 ml/min/1.73 sqM) Glucose (74-99) mg/dL Plasma Lactic Acid Chas 2.0 (0.7-2.0) mmol/L Calcium (8.4-10.2) mg/dL Magnesium (1.6-2.3) mg/dL Total Bilirubin (0.2-1.3) mg/dL AST (14-36) U/L ALT (4-34) U/L Alkaline Phosphatase (38-126) U/L Troponin I <0.012 (0.000-0.034) ng/mL NT-Pro-B Natriuret Pep 86 pg/mL Total Protein (6.3-8.2) g/dL Albumin (3.5-5.0) g/dL - Radiology Data Bilateral bilateral lower lobe infiltrate greater on the left a tiny effusion. Pneumonia favored or CHF correlate clinically. (Vikki Alvarado) Disposition Is patient prescribed a controlled substance at d/c from ED?: No Time of Disposition: 13:54 <Vikki Alvarado - Last Filed: 02/25/20 13:52> <Angle Ortiz - Last Filed: 02/26/20 00:31> Clinical Impression: Blind, Bilateral pneumonia, Hx of multiple sclerosis, Hypoxia Disposition: ADMITTED IP TO THIS HOSP Condition: Stable
[2020-02-25 12:47] LABS: Basophils % (A) 0 %; Eosinophils % (A) 0 %; HCT 34.3 % (34.0-46.0); HGB 10.9 gm/dL (11.4-16.0); Hypochromasia Slight; Lymphocytes # (A) 1.3 k/uL (1.0-4.8); Lymphocytes % (A) 8 %; MCH 26.3 pg (25.0-35.0); MCHC 31.8 g/dL (31.0-37.0); MCV 82.8 fL (80.0-100.0); Mean Platelet Volume 7.3; Monocytes % (A) 6 %; Neutrophils # (A) 14.6 k/uL (1.3-7.7); Neutrophils % (A) 85 %; Platelet Count 410 k/uL (150-450); RBC 4.14 m/uL (3.80-5.40)
[2020-02-25 12:56] LABS: Partial Thromboplastin Time 22.5 sec (22.0-30.0)
--- NOTE | 2020-02-25 13:00 | XR ---
EXAMINATION TYPE: XR chest 2V DATE OF EXAM: 02/25/2020 COMPARISON: NONE TECHNIQUE: PA and lateral views submitted. HISTORY: Chest pain FINDINGS: Bilateral infiltrate and tiny effusion. No pneumothorax. Heart size normal. Hypertrophic and degenera tive change of the spine. IMPRESSION: 1. Bilateral lower lobe infiltrate greater on the left with tiny effusion. Pneumonia favored over CHF correlate clinically..
[2020-02-25 13:01] LABS: ALT 17 U/L (4-34); AST 18 U/L (14-36); African American GFR (CKD) >90 (>60 ml/min/1.73 sqM); Albumin 3.7 g/dL (3.5-5.0); Alkaline Phosphatase 48 U/L (38-126); Anion Gap 5 mmol/L; Blood Urea Nitrogen 22 mg/dL (7-17); Calcium 8.9 mg/dL (8.4-10.2); Carbon Dioxide 25 mmol/L (22-30); Chloride 106 mmol/L (98-107); Glucose 85 mg/dL (74-99); Magnesium 2.5 mg/dL (1.6-2.3); Non-African American GFR(CKD) >90 (>60 ml/min/1.73 sqM); Potassium 4.1 mmol/L (3.5-5.1); Sodium 136 mmol/L (137-145); Total Bilirubin 0.3 mg/dL (0.2-1.3); Total Protein 5.7 g/dL (6.3-8.2)
[2020-02-25] MEDS ORDERED: AZITHROMYCIN 500 MG in SODIUM CHLORIDE 0.9% 250 ML IVPB STA (13:12)
[2020-02-25] MEDS ORDERED: cefTRIAXone IN SWFI 1,000 MG/10 ML SYRINGE IVP STA (13:12)
[2020-02-25] MEDS ORDERED: IPRATROPIUM-ALBUTEROL 3 ML NEB INHALATION PRN (13:55)
[2020-02-25] MEDS ORDERED: PNEUMONIA PROTOCOL UTILIZED 1 EACH MISC PO PRN (13:55)
[2020-02-25] MEDS ORDERED: [UNRECOGNIZED DRUG - OTHER] IV SCH (14:00)
[2020-02-25] MEDS: SODIUM CHLORIDE 0.9% 1,000 ML IV SCH ×2 (14:25→23:28)
[2020-02-25] MEDS: traZODone HCL 100 MG TAB PO SCH (20:43)
[2020-02-25] MEDS: ATORVASTATIN 80 MG TAB PO SCH (20:43)
[2020-02-25] MEDS: clonazePAM 0.5 MG TAB PO SCH (20:43)
[2020-02-25] MEDS: lisinopriL 20 MG TAB PO SCH (20:43)
[2020-02-25 21:26] LABS: C Reactive Protein <5.0 mg/L (<10.0); LDH 330 U/L (313-618)
[2020-02-26] MEDS: HYDROcodone/APAP 5-325MG 1 EACH TAB PO PRN ×3 (01:58→21:02)
--- NOTE | 2020-02-26 04:16 | HP ---
HISTORY AND PHYSICAL DATE OF SERVICE: 02/25/2020 CHIEF COMPLAINT: Shortness of breath and chest congestion. HISTORY OF PRESENT ILLNESS: This 44-year-old woman with a past medical history of multiple medical problems including history of CVA, TIA, history of musculoskeletal disorder, multiple sclerosis and Donnie angina being followed Dr. Luly Caldwell in the outpatient setting apparently had 2 strokes last year and subsequently patient is apparently legally blind. The patient was being followed Dr. Caldwell, and the patient apparently had a caregiver coming from [place] from [facility] who is in some sort of COVID isolation recently according to her because of exposure or being sick. The patient is having shortness of breath and cough for the last 2 days and the patient came to [facility] and admitted for further evaluation and treatment. Chest x-ray showed possible bilateral pneumonia. Otherwise, the patient also had 2 small children also. There is no history of any fever, rigors or chills. No history of headache, loss of consciousness or seizures. PAST MEDICAL HISTORY: History of CVA, TIA, history of legal blindness, multiple sclerosis, Donnie angina. MEDICATIONS: Medications prior to admission include home medications are: 1. Desyrel 100 mg p.o. at bedtime. 2. Zestril 20 mg p.o. b.i.d. 3. Klonopin 0.5 mg b.i.d. 4. Norvasc 5 mg p.o. daily. 5. Solu-Medrol. 6. Protonix. 7. Ocrevus. 8. Magonate. 9. Celexa. 10.Lipitor. 11.Ecotrin. ALLERGIES: None. FAMILY HISTORY: History of hypertension, heart stents. SOCIAL HISTORY: Previous history of smoking. No history of alcohol intake. REVIEW OF SYSTEMS: ENT: As mentioned earlier. CARDIOVASCULAR SYSTEM: No angina. RESPIRATORY SYSTEM: As mentioned earlier. GI: As mentioned earlier. : No dysuria. NERVOUS SYSTEM: As mentioned earlier. ALLERGY/IMMUNOLOGY: No asthma or hayfever. MUSCULOSKELETAL: As mentioned earlier. HEMATOLOGY/ONCOLOGY: No history of anemia. ENDOCRINE: No history of diabetes or hypothyroidism. CONSTITUTIONAL: As mentioned earlier. DERMATOLOGY: Negative. RHEUMATOLOGY: Negative. PSYCHIATRY: As mentioned earlier. PHYSICAL EXAMINATION: The patient is alert and oriented x3. Pulse is 96, blood pressure 129/83, respiration 17, temperature 98.2, pulse ox 91% on 3 L. HEENT: Conjunctivae normal. Oral mucosa moist. NECK: No jugular venous distention. No carotid bruit. No lymph node enlargement. CARDIOVASCULAR: S1, S2 muffled. No S3, no S4. RESPIRATORY: Breath sounds diminished at the bases. A few scattered rhonchi and crackles. ABDOMEN: Soft, nontender. LEGS: No edema, no swelling. NERVOUS SYSTEM: Diffusely weak. JOINTS: No active deforming arthropathy. LYMPHATICS: No lymphadenopathy of the neck, axillae or groin. LABS: WBC 17, hemoglobin 10.9. Sodium 136. Chest x-ray which was personally reviewed by me showed bilateral lower lobe infiltrates with some tiny pleural effusion. ASSESSMENT: 1. Possible bilateral pneumonia with bronchopneumonia with pleural effusion, possibly community-acquired, rule out COVID-19. 2. Possible reactive bronchospasm. 3. History of cerebrovascular accident, transient ischemic attack, multiple. 4. History of blindness. 5. History of multiple sclerosis. 6. Donnie angina. 7. History of MRSA. 8. Remote history of nicotine dependence. 9. Obesity with body mass index of 30.5. RECOMMENDATIONS AND DISCUSSION: This 44-year-old woman who presented with multiple complex medical issues. Will monitor the patient closely. Continue the current medications. Continue symptomatic treatment. Will initiate broad-spectrum IV antibiotics. Cultures. I also recommended CT scan of the chest after D-dimer. If the D-dimer is positive, I would rather obtain the CT angio. Otherwise cut down the fluids to 75 mL/hour. Per pulmonary consultation, bronchodilators. Prognosis guarded because of multiple complex medical issues. Further recommendations to follow. A copy of dictation forwarded to Dr. Luly Caldwell who is the primary physician. COVID-19 test also been requested. I would also recommend Lovenox also as well as Pepcid also. See orders for further details. MMODL / IJN: [id number] /
--- NOTE | 2020-02-26 07:25 | XR ---
EXAMINATION TYPE: XR chest 2V DATE OF EXAM: 02/26/2020 COMPARISON: NONE HISTORY: Chest pain TECHNIQUE: Frontal and lateral views of the chest are obtained. FINDINGS: There is no focal air space opacity. No evidence for pneumothorax. No pleural effusion. The cardiac silhouette size is within normal limits. The osseous structures are grossly intact. IMPRESSION: 1. No acute cardiopulmonary process.
[2020-02-26] MEDS: PANTOPRAZOLE 40 MG TABLET PO SCH ×2 (07:30→12:03)
[2020-02-26] MEDS: clonazePAM 0.5 MG TAB PO SCH ×3 (07:30→21:02)
[2020-02-26] MEDS: ASPIRIN 81 MG PO SCH (07:30)
[2020-02-26] MEDS: FAMOTIDINE 20 MG TAB PO SCH ×2 (07:30→21:02)
[2020-02-26] MEDS: MAGNESIUM OXIDE 400 MG TAB PO SCH (07:31)
[2020-02-26] MEDS: CITALOPRAM HYDROBROMIDE 20 MG TAB PO SCH (07:31)
[2020-02-26] MEDS: amLODIPine 5 MG TAB PO SCH (07:32)
[2020-02-26] MEDS: ENOXAPARIN 40 MG/0.4 ML SYRINGE SQ SCH (07:32)
[2020-02-26] MEDS: AZITHROMYCIN 500 MG TAB PO SCH (07:32)
[2020-02-26] MEDS: lisinopriL 20 MG TAB PO SCH ×2 (07:32→21:04)
[2020-02-26] MEDS: ALBUTEROL NEBULIZED 2.5 MG/3 ML INHALATION SCH ×2 (07:38→10:54)
--- NOTE | 2020-02-26 09:55 | CT ---
EXAMINATION TYPE: CT chest wo con DATE OF EXAM: 02/26/2020 COMPARISON: Chest x-ray 02/26/2020 HISTORY: Pneumonia CT DLP: 350.6 mGycm, Automated exposure control for dose reduction was used. CONTRAST: Performed injected with 0 mL of Isovue 300. TECHNIQUE: Axial images were obtained at 5 mm thick sections. Reconstructed images are reviewed on [employer] computer in the coronal plane. FINDINGS: Portion of the thyroid visualized is normal. There is some mild streak opacities within the lung bases slightly greater along the posterior medial left lung base. Correlate for atelectasis. Mild pneumonia should be considered. Follow-up can be per formed as clinically indicated. No enlarged mediastinal or hilar adenopathy is evident. The ascending aorta diameter at the level o f the main pulmonary artery is 3.6 cm. The main pulmonary artery diameter at the bifurcation is 2.[address] sections are obtained through the upper abdomen. Abdomen is essentially unremarkable. Smal l hiatal hernia is present. IMPRESSIONS: 1. Mild posterior medial left lower lobe infiltrate. Correlate for atelectasis or pneumonia. Some add itional bibasilar streak opacities are likely related atelectasis.
[2020-02-26] MEDS ORDERED: IPRATROPIUM-ALBUTEROL 3 ML NEB INHALATION PRN (11:08)
[2020-02-26] MEDS: methylPREDNISolone SOD SUCCI 125 MG/2 ML VIAL IV SCH ×2 (12:03→17:23)
[2020-02-26] MEDS ORDERED: FLUTICASONE 50MCG/SPRAY NASAL 16GM EA NOSTRIL SCH (12:28)
[2020-02-26] MEDS: SODIUM CHLORIDE 0.9% 1,000 ML IV SCH (14:10)
[2020-02-26] MEDS: IPRATROPIUM-ALBUTEROL 3 ML NEB INHALATION SCH ×2 (15:11→19:19)
[2020-02-26] MEDS ORDERED: FLUTICASONE 50MCG/SPRAY NASAL 16GM EA NOSTRIL PRN (17:36)
[2020-02-26] MEDS: FORMOTEROL FUMARATE 20 MCG/2 ML NEBU INHALATION SCH (19:19)
[2020-02-26] MEDS: BUDESONIDE 0.5 MG/2 ML NEBU INHALATION SCH (19:20)
[2020-02-26 20:36] LABS: Glucose,Whole Blood 157 mg/dL (75-99)
--- NOTE | 2020-02-26 20:48 | PN ---
PROGRESS NOTE DATE OF SERVICE: 02/26/2020 This 44-year-old woman who was admitted with bilateral pneumonia had left more than right bibasilar pneumonia. Possibly community-acquired pneumonia is being suspected at this time. COVID-19 pneumonia is thought to be unlikely, even though the patient apparently had contact with somebody who is on COVID isolation at this time. Patient is on broad-spectrum IV antibiotics. Cultures are negative so far. Pulmonary has been consulted. Past medical history reviewed. REVIEW OF SYSTEMS: CARDIOVASCULAR SYSTEM: No angina, palpitations. RESPIRATORY SYSTEM: As mentioned earlier. GI: As mentioned earlier. : No dysuria or retention. NERVOUS SYSTEM: No numbness, weakness. CURRENT MEDICATIONS: Reviewed. They include Williamson 5 mg, DuoNeb q.i.d. p.r.n., Norvasc, aspirin, Lipitor, Zithromax, Pulmicort, Rocephin, Klonopin, Pepcid, Zestril, Solu-Medrol. Doses are reviewed. PHYSICAL EXAMINATION: Patient alert and oriented x3. Pulse 90, blood pressure 120/81, respiration 16, temperature 98.2, pulse ox 94% on room air. HEENT: Conjunctivae normal. NECK: No jugular venous distention. CARDIOVASCULAR SYSTEM: S1, S2 muffled. RESPIRATORY SYSTEM: Breath sounds diminished at the bases. A few scattered rhonchi and crackles. ABDOMEN: Soft, obese, non-tender. LEGS: No edema. No swelling. NERVOUS SYSTEM: No focal deficit. LABS: WBC 17, hemoglobin 10.9, sodium 136. Other labs are noted. ASSESSMENT: 1. Acute bibasilar pneumonia, left more than the right, possibly community-acquired pneumonia. COVID-19 thought to be unlikely. 2. Possible reactive bronchospasm. 3. History of cerebrovascular accident, transient ischemic attack; multiple attacks. 4. History of blindness. 5. History of multiple sclerosis. 6. History of Donnie's angina. 7. History of Mrs. 8. Remote history of nicotine dependence. 9. Obesity with body mass index of 30.5. 10.Increased white count. 11.Hyponatremia. RECOMMENDATIONS AND DISCUSSION: In this 44-year-old woman who presented with multiple complex medical issues, we will monitor the patient closely, continue the current medications, continue with symptomatic treatment. Will continue the Rocephin and Zithromax. Bronchodilators. The patient is also on IV steroids. I would also recommend insulin sliding scale. DVT prophylaxis. Closely follow with Pulmonary. Prognosis is guarded because of multiple complex medical issues, and further recommendations to follow. COVID-19 testing is pending at this time. NIKOSL / TION: [id number] /
[2020-02-26] MEDS ORDERED: guaiFENesin-DM 100-10MG/5ML 10 ML CUP PO PRN (20:54)
--- NOTE | 2020-02-26 20:54 | CONS ---
CONSULTATION PULMONARY/CRITICAL CARE CONSULTATION: DATE OF SERVICE: February 26, 2020. REASON FOR CONSULTATION: Pneumonia. HISTORY OF PRESENT ILLNESS: A 44-year-old female who apparently presented to the emergency department on February 24 with complaints of shortness of breath. She also has cough. She has been having symptoms for about 3 or 4 days prior to admission. In addition, she complained of fatigue and malaise. She denies any fever or chills. She denies any chest pain or chest discomfort. She recently was on steroids for her multiple sclerosis. She complains of being tight in the chest and having wheezing. The cough is productive of yellow phlegm. She denies any history of sick contacts. She does have a history of blindness. She also has a history of a stroke. Anyway, when I entered the room, the patient is sitting up in bed. She was finishing a breathing treatment. She was in no distress. There is no audible wheezing, use of accessory muscles or conversational dyspnea. The patient actually looks relatively comfortable. We did look at her CT scan and x-ray. She did have an area of abnormality in the left lung. CURRENT MEDICATIONS: Reviewed. She is on aspirin, Lipitor, Celexa, magnesium, Ocrevus, Protonix, amlodipine, Klonopin, lisinopril, and Desyrel. ALLERGIES: Denied. MEDICAL HISTORY: Positive for CVA, multiple sclerosis, Lugwig's angina, blindness, and a previous history of MRSA infection. It was apparently involving her right leg. SURGICAL HISTORY: Surgical history is denied. She did have some dental surgery in the past. SOCIAL HISTORY: Negative for tobacco. She drinks alcohol rarely. There is no history of any illicit drug use. FAMILY HISTORY: Positive for a mother with hypertension and cardiac stent. Father with a history of rectal cancer, esophageal cancer and hypertension, 2 brothers, 1 of which has MS and one of which has sarcoidosis and a sister with lupus and MS. REVIEW OF SYSTEMS: CONSTITUTIONAL: Fatigue and malaise. NEUROLOGIC negative. HEENT negative. CARDIOVASCULAR negative. PULMONARY: Shortness of breath, chest congestion, cough and phlegm production. GI negative. negative. RHEUMATOLOGIC negative. IMMUNOLOGIC negative. ENDOCRINOLOGIC negative. DERMATOLOGIC negative. PHYSICAL EXAMINATION: VITAL SIGNS: Current vital signs include a temperature 97.4 heart rate 88, respiratory rate is 16, blood pressure 126/86 on room-air saturation 96%. GENERAL: Appears in no acute distress. Certainly no respiratory distress. HEENT: Examination is grossly unremarkable. Mucous membranes are moist. No nasal O2 noted. NECK: Supple. Full range of motion. No adenopathy. Neck veins are flat. CARDIOVASCULAR: Examination reveals regular rhythm and rate. Heart sounds are distant. Heart rate 84 beats per minute. S1, S2 normal. LUNGS: Lungs reveal diffuse coarse rhonchi and bronchospasm. Breath sounds are coarse. Breath sounds equal bilaterally. There are expiratory wheezes. No crackles. ABDOMEN: Soft. Bowel sounds are heard. EXTREMITIES are intact. No cyanosis, clubbing, or edema. SKIN: Without rash. NEUROLOGIC: Examination is brief but nonfocal. LABS: Reviewed. White count 28589, hemoglobin 10.9, hematocrit 34.3, platelet count 410,000. PT 10.0, INR 1.0, PTT 22.5. Sedimentation rate 5 and D-dimer 0.5. Sodium 136, potassium 4.1, chloride 106, CO2 25, anion gap is 5. BUN and creatinine were 22 and 0.56. Magnesium 2.5. N-terminal proBNP is 86. Microbiology is pending or negative. A chest x-ray done on February 24 showed bilateral lower lobe infiltrates, greater on the left. A chest x-ray done on February 25 is read as normal. A CT scan done on February 25 shows a relatively smaller infiltrate in the posterior medial left lower lobe. Medications are reviewed. The patient is on amlodipine, aspirin, Lipitor, Zithromax, Pulmicort, Rocephin, Celexa, Klonopin, Lovenox, Flonase nasal spray, Pepcid, Perforomist, Cylinder, DuoNeb, lisinopril, Mag-Ox, Solu-Medrol, Ocrevos, Protonix, saline IV, and trazodone. ASSESSMENT: 1. Left lower lobe pneumonia, with bronchospasm. 2. History of multiple sclerosis. 3. Blindness. 4. History of hyperlipidemia. 5. History of hypertension. 6. History of cerebrovascular accident. 7. History of Donnie's angina. 8. Prior history of MRSA infection. PLAN: The patient is currently on DuoNeb, Pulmicort, and formoterol. The patient is also getting Solu-Medrol. The patient is getting Rocephin and Zithromax. Additional recommendations and suggestions are forthcoming. We will continue to follow. Prognosis is guarded. MMODL / IJN: [id number] /
[2020-02-26] MEDS: traZODone HCL 100 MG TAB PO SCH (21:02)
[2020-02-26] MEDS: ATORVASTATIN 80 MG TAB PO SCH (21:04)
[2020-02-26] MEDS: INSULIN ASPART (NovoLOG) 100 UNIT/ML VIAL SQ SCH (21:04)
[2020-02-27] MEDS: methylPREDNISolone SOD SUCCI 125 MG/2 ML VIAL IV SCH ×4 (00:39→17:00)
[2020-02-27] MEDS: SODIUM CHLORIDE 0.9% 1,000 ML IV SCH ×2 (03:40→11:52)
[2020-02-27] MEDS: HYDROcodone/APAP 5-325MG 1 EACH TAB PO PRN ×3 (04:02→20:46)
[2020-02-27 07:06] LABS: Glucose,Whole Blood 139 mg/dL (75-99)
[2020-02-27 07:11] LABS: Appearance,Urine Clear (Clear); Bilirubin,Urine Negative (Negative); Blood,Urine Large (Negative); Color,Urine Yellow; Glucose,Urine (UA) Negative (Negative); Ketones,Urine Trace (Negative); Leukocyte Esterase,Urine Small (Negative); Mucus,Urine Rare /hpf; Nitrite,Urine Negative (Negative); Protein,Urine Trace (Negative); RBC,Urine >182 /hpf (0-5); Specific Gravity,Urine 1.015 (1.001-1.035); Squamous Epithelial Cell,Urine 4 /hpf (0-4); Urobilinogen,Urine <2.0 mg/dL (<2.0); WBC,Urine 11 /hpf (0-5)
[2020-02-27 07:53] LABS: Basophils % (A) 0 %; Eosinophils % (A) 0 %; HCT 35.7 % (34.0-46.0); HGB 10.9 gm/dL (11.4-16.0); Hypochromasia Slight; Lymphocytes # (A) 0.6 k/uL (1.0-4.8); Lymphocytes % (A) 5 %; MCH 25.9 pg (25.0-35.0); MCHC 30.6 g/dL (31.0-37.0); MCV 84.6 fL (80.0-100.0); Mean Platelet Volume 7.2; Monocytes # (A) 0.3 k/uL (0-1.0); Monocytes % (A) 3 %; Neutrophils # (A) 11.6 k/uL (1.3-7.7); Neutrophils % (A) 92 %; Platelet Count 381 k/uL (150-450); RBC 4.22 m/uL (3.80-5.40); RDW 15.9 % (11.5-15.5); WBC 12.5 k/uL (3.8-10.6)
[2020-02-27] MEDS: FAMOTIDINE 20 MG TAB PO SCH (07:53)
[2020-02-27] MEDS: lisinopriL 20 MG TAB PO SCH ×2 (07:53→20:40)
[2020-02-27] MEDS: PANTOPRAZOLE 40 MG TABLET PO SCH ×2 (07:53→12:19)
[2020-02-27] MEDS: MAGNESIUM OXIDE 400 MG TAB PO SCH (07:53)
[2020-02-27] MEDS: CITALOPRAM HYDROBROMIDE 20 MG TAB PO SCH (07:53)
[2020-02-27] MEDS: clonazePAM 0.5 MG TAB PO SCH ×3 (07:53→20:41)
[2020-02-27] MEDS: ASPIRIN 81 MG PO SCH (07:53)
[2020-02-27] MEDS: amLODIPine 5 MG TAB PO SCH (07:54)
[2020-02-27] MEDS: ENOXAPARIN 40 MG/0.4 ML SYRINGE SQ SCH (07:54)
[2020-02-27] MEDS: AZITHROMYCIN 500 MG TAB PO SCH (07:55)
[2020-02-27] MEDS: INSULIN ASPART (NovoLOG) 100 UNIT/ML VIAL SQ SCH ×4 (07:55→20:44)
[2020-02-27] MEDS: FORMOTEROL FUMARATE 20 MCG/2 ML NEBU INHALATION SCH ×2 (09:15→19:54)
[2020-02-27] MEDS: IPRATROPIUM-ALBUTEROL 3 ML NEB INHALATION SCH ×3 (09:15→19:54)
[2020-02-27] MEDS: BUDESONIDE 0.5 MG/2 ML NEBU INHALATION SCH ×3 (09:23→19:53)
[2020-02-27] MEDS: guaiFENesin-DM 100-10MG/5ML 10 ML CUP PO PRN ×2 (09:29→20:40)
[2020-02-27 11:15] LABS: Glucose,Whole Blood 127 mg/dL (75-99)
[2020-02-27 11:25] LABS: African American GFR (CKD) 135.5 (60.0-200.0); Calcium 8.4 mg/dL (8.7-10.3); Non-African American GFR(CKD) 116.9 (60.0-200.0); Potassium 4.5 mmol/L (3.5-5.5)
[2020-02-27] MEDS: HYDROmorphone 0.5 MG/0.5 ML SYRINGE IVP PRN (14:22)
--- NOTE | 2020-02-27 14:23 | P.PN ---
Subjective Progress Note Date: 02/27/20 Principal diagnosis: Shortness of breath This is a 44-year-old white female patient that was admitted to the hospital on February 24 through the emergency department where she presented for evaluation of shortness of breath, cough, fatigue, malaise, but no fever, chills, no co mplaints of chest pain. Patient has no history of multiple sclerosis, she is on steroids, she does have history of prior stroke, blindness, she is lifetime nonsmoker, no history of any illicit drug use. COVID 19 was ruled out per PCR. Chest x-ray showed bilateral lower lobe infiltrates greater on the left with tiny pleural effusions. In addition patient had leukocytosis, with white blood cell count of 17, progesterone level came back negative at 0.02, inflammatory markers were nonelevated, troponin was less than 0.012, urinalysis showed evidence of infection with increased white blood cells, red blood cells. Patient was started on empiric antibiotics including azithromycin and Rocephin, she is on breathing treatments, she is feeling better, she's been afebrile since admission. Leukocytosis is improving, with blood cell count is down to 12.5 on today's labs, hemoglobin is 10.9, electrolytes and renal profile are within normal limits, no fever or chills. Blood culture has shown no growth. Yesterday's chest x-ray showed no acute cardiopulmonary process. Chest CT showed mild posterior medial left lower lobe infiltrate, possibly related to atelectasis or underlying pneumonia, and some additional bibasilar streaky opacities related to atelectasis. Objective - Vital Signs Vital signs: Vital Signs Temp 97.7 F 02/27/20 07:00 Pulse 86 02/27/20 12:45 Resp 18 02/27/20 07:00 BP 136/89 02/27/20 07:00 Pulse Ox 94 L 02/27/20 10:08 Intake & Output 02/26/20 02/27/20 02/27/20 18:59 06:59 18:59 Other: # Voids 2 2 1 - Exam GENERAL EXAM: Alert, pleasant, 44-year-old white female, on room air, with a pulse ox of 94% comfortable in no apparent distress. HEAD: Normocephalic/atraumatic. EYES: Normal reaction of pupils, equal size. Conjunctiva pink, sclera white. NOSE: Clear with pink turbinates. THROAT: No erythema or exudates. NECK: No masses, no JVD, no thyroid enlargement, no adenopathy. CHEST: No chest wall deformity. Symmetrical expansion. LUNGS: Equal air entry with diffuse wheezes CVS: Regular rate and rhythm, normal S1 and S2, no gallops, no murmurs, no rubs ABDOMEN: Soft, nontender. No hepatosplenomegaly, normal bowel sounds, no guarding or rigidity. EXTREMITIES: No clubbing, no edema, no cyanosis, 2+ pulses and upper and lower extremities. MUSCULOSKELETAL: Muscle strength and tone normal. SPINE: No scoliosis or deformity SKIN: No rashes CENTRAL NERVOUS SYSTEM: Alert and oriented -3. No focal deficits, tone is normal in all 4 extremities. Patient is blind PSYCHIATRIC: Alert and oriented -3. Appropriate affect. Intact judgment and insight. - Labs CBC & Chem 7: 02/27/20 06:55 02/27/20 06:55 Labs: Abnormal Lab Results - Last 24 Hours (Table) 02/26/20 02/27/20 02/27/20 Range/Units 20:32 06:15 06:55 WBC 12.5 H (3.8-10.6) k/uL Hgb 10.9 L (11.4-16.0) gm/dL MCHC 30.6 L (31.0-37.0) g/dL RDW 15.9 H (11.5-15.5) % Neutrophils # 11.6 H (1.3-7.7) k/uL Lymphocytes # 0.6 L (1.0-4.8) k/uL Creatinine (0.6-1.5) mg/dL BUN/Creatinine Ratio (12.00-20.00) Ratio Glucose (70-110) mg/dL POC Glucose (mg/dL) 157 H (75-99) mg/dL Calcium (8.7-10.3) mg/dL Urine Protein Trace H (Negative) Urine Ketones Trace H (Negative) Urine Blood Large H (Negative) Ur Leukocyte Esterase Small H (Negative) Urine RBC >182 H (0-5) /hpf Urine WBC 11 H (0-5) /hpf Urine Mucus Rare H (None) /hpf 02/27/20 02/27/20 02/27/20 Range/Units 06:55 07:05 11:13 WBC (3.8-10.6) k/uL Hgb (11.4-16.0) gm/dL MCHC (31.0-37.0) g/dL RDW (11.5-15.5) % Neutrophils # (1.3-7.7) k/uL Lymphocytes # (1.0-4.8) k/uL Creatinine 0.5 L (0.6-1.5) mg/dL BUN/Creatinine Ratio 28.00 H (12.00-20.00) Ratio Glucose 127 H (70-110) mg/dL POC Glucose (mg/dL) 139 H 127 H (75-99) mg/dL Calcium 8.4 L (8.7-10.3) mg/dL Urine Protein (Negative) Urine Ketones (Negative) Urine Blood (Negative) Ur Leukocyte Esterase (Negative) Urine RBC (0-5) /hpf Urine WBC (0-5) /hpf Urine Mucus (None) /hpf Microbiology - Last 24 Hours (Table) 02/25/20 12:24 Blood Culture - Preliminary Blood No Growth after 24 hours Assessment and Plan Plan: Assessment: #1. Dyspnea related to possibility of left lower lobe pneumonia, community acquired, with bronchospasm #2. Possible urinary tract infection #3. History of multiple sclerosis #4. History of blindness #5. History of previous CVA #6. History of hypertension #7. History of hyperlipidemia #8. History of Donnie's angina #9. Prior history of MRSA infection Plan: Continue current antibiotic coverage, nebulized bronchodilators, Pulmicort and formoterol, patient is still quite bronchospastic on today's exam, she is on IV steroids, will continue with same treatment, so far microbiology culture is n egative, signs have been stable, she's been afebrile since admission, COVID19 has been ruled out. Doing a little better overall since admission, white blood cell count is improving. Continue to follow I performed a history & physical examination of the patient and discussed their management with my nurse practitioner, Rhona Uribe. I reviewed the nurse practitioner's note and agree with the documented findings and plan of care. Lung sounds are positive for diffuse wheezes. The findings and the impression was discussed with the patient. I attest to the documentation by the nurse practitioner. Time with Patient: Less than 30
[2020-02-27] MEDS ORDERED: FUROSEMIDE 10 MG/ML 4 ML VIAL IV STA (15:04)
[2020-02-27 16:23] LABS: Glucose,Whole Blood 173 mg/dL (75-99)
--- NOTE | 2020-02-27 16:38 | PN ---
PROGRESS NOTE DATE OF SERVICE: 02/27/2020 DATE OF SERVICE: This 44-year-old woman who was admitted with acute bibasilar pneumonia is being closely monitored at this time. The patient is on broad spectrum IV antibiotics. Covid-19 was negative. Some bronchospasm was also noted. No chest pain. No palpitations. No fever. PHYSICAL EXAMINATION: Alert and oriented times three. Pulse is 85. Blood pressure is 133/88. Respirations 18. Temperature 97.7, pulse ox 94% on room air. HEENT: Conjunctivae normal. NECK: No JVD. CARDIOVASCULAR: S1, S2 muffled. RESPIRATORY: Breath sounds diminished in the bases. Scattered rhonchi and crackles. ABDOMEN: Soft, nontender. NERVOUS SYSTEM: No focal deficits. LABS: WBC 12.5. Glucose 127. UA noted. Cultures are negative so far. ASSESSMENT: 1. Acute bibasilar pneumonia, left more than the right, possibly community-acquired pneumonia. Covid-19 ruled out. 2. Possible reactive bronchospasm. 3. History of cerebrovascular accident/transient ischemic attack with multiple strokes. 4. History of blindness. 5. History of multiple sclerosis. 6. History of Donnie's angina. 7. Remote history of nicotine dependence. 8. Obesity with body mass index of 30.5. 9. Increased WBC. 10.Hyponatremia. RECOMMENDATIONS AND DISCUSSION: I recommend to continue current medications, symptomatic treatment. Otherwise, at this time, I would also continue the antibiotics. I would also stop the IV fluids and then also order Legionella mycoplasma testing also. MMODL / IJN: [id number] /
[2020-02-27] MEDS: ATORVASTATIN 80 MG TAB PO SCH (20:39)
[2020-02-27] MEDS: traZODone HCL 100 MG TAB PO SCH (20:40)
[2020-02-27 20:44] LABS: Glucose,Whole Blood 127 mg/dL (75-99)
[2020-02-28] MEDS: methylPREDNISolone SOD SUCCI 125 MG/2 ML VIAL IV SCH ×5 (00:07→23:35)
[2020-02-28] MEDS: HYDROmorphone 0.5 MG/0.5 ML SYRINGE IVP PRN ×3 (01:29→16:41)
[2020-02-28 06:39] LABS: Anisocytosis Slight; Basophils % (A) 0 %; Eosinophils % (A) 0 %; HCT 34.2 % (34.0-46.0); HGB 10.8 gm/dL (11.4-16.0); Hypochromasia Slight; Lymphocytes # (A) 0.7 k/uL (1.0-4.8); Lymphocytes % (A) 5 %; MCH 26.6 pg (25.0-35.0); MCHC 31.5 g/dL (31.0-37.0); MCV 84.4 fL (80.0-100.0); Monocytes # (A) 0.5 k/uL (0-1.0); Monocytes % (A) 3 %; Neutrophils % (A) 92 %; Platelet Count 393 k/uL (150-450); RBC 4.05 m/uL (3.80-5.40); RDW 16.2 % (11.5-15.5); WBC 16.3 k/uL (3.8-10.6)
[2020-02-28 06:59] LABS: Glucose,Whole Blood 122 mg/dL (75-99)
[2020-02-28] MEDS: INSULIN ASPART (NovoLOG) 100 UNIT/ML VIAL SQ SCH ×4 (07:27→21:32)
[2020-02-28] MEDS: BUDESONIDE 0.5 MG/2 ML NEBU INHALATION SCH ×3 (08:00→20:56)
[2020-02-28] MEDS: clonazePAM 0.5 MG TAB PO SCH ×3 (08:03→21:34)
[2020-02-28] MEDS: HYDROcodone/APAP 5-325MG 1 EACH TAB PO PRN ×2 (08:03→21:33)
[2020-02-28] MEDS: ENOXAPARIN 40 MG/0.4 ML SYRINGE SQ SCH (08:03)
[2020-02-28] MEDS: amLODIPine 5 MG TAB PO SCH (08:03)
[2020-02-28] MEDS: PANTOPRAZOLE 40 MG TABLET PO SCH ×2 (08:03→12:09)
[2020-02-28] MEDS: ASPIRIN 81 MG PO SCH (08:03)
[2020-02-28] MEDS: AZITHROMYCIN 500 MG TAB PO SCH (08:03)
[2020-02-28] MEDS: CITALOPRAM HYDROBROMIDE 20 MG TAB PO SCH (08:03)
[2020-02-28] MEDS: lisinopriL 20 MG TAB PO SCH ×2 (08:03→21:33)
[2020-02-28] MEDS: FORMOTEROL FUMARATE 20 MCG/2 ML NEBU INHALATION SCH ×2 (08:34→20:56)
[2020-02-28] MEDS: IPRATROPIUM-ALBUTEROL 3 ML NEB INHALATION SCH ×3 (08:34→20:56)
[2020-02-28 09:12] LABS: African American GFR (CKD) 135.5 (60.0-200.0); Anion Gap 10.3 mmol/L (4.00-12.00); Calcium 8.5 mg/dL (8.7-10.3); Carbon Dioxide 24.7 mmol/L (21.6-31.8); Non-African American GFR(CKD) 116.9 (60.0-200.0); Potassium 4.3 mmol/L (3.5-5.5)
[2020-02-28] MEDS: guaiFENesin-DM 100-10MG/5ML 10 ML CUP PO PRN (09:13)
[2020-02-28 11:52] LABS: Glucose,Whole Blood 182 mg/dL (75-99)
[2020-02-28] MEDS: MAGNESIUM OXIDE 400 MG TAB PO SCH (12:09)
[2020-02-28] MEDS: LEVOFLOXACIN 750 MG TAB PO SCH (12:09)
--- NOTE | 2020-02-28 14:53 | P.PN ---
Subjective Progress Note Date: 02/28/20 Principal diagnosis: Community-acquired left lower lobe pneumonia with bronchospasm This is a 44-year-old white female patient that was admitted to the hospital on February 24 through the emergency department where she presented for evaluation of shortness of breath, cough, fatigue, malaise, but no fever, chills, no complaints of chest pain. Patient has no history of multiple sclerosis, she is on steroids, she does have history of prior stroke, blindness, she is lifetime nonsmoker, no history of any illicit drug use. COVID 19 was ruled out per PCR. Chest x-ray showed bilateral lower lobe infiltrates greater on the left with tiny pleural effusions. In addition patient had leukocytosis, with white blood cell count of 17, progesterone level came back negative at 0.02, inflammatory markers were nonelevated, troponin was less than 0.012, urinalysis showed evidence of infection with increased white blood cells, red blood cells. Patient was started on empiric antibiotics including azithromycin and Rocephin, she is on breathing treatments, she is feeling better, she's been afebrile since admission. Leukocytosis is improving, with blood cell count is down to 12.5 on today's labs, hemoglobin is 10.9, electrolytes and renal profile are within normal limits, no fever or chills. Blood culture has shown no growth. Yesterday's chest x-ray showed no acute cardiopulmonary process. Chest CT showed mild posterior medial left lower lobe infiltrate, possibly related to atelectasis or underlying pneumonia, and some additional bibasilar streaky opacities related to atelectasis. The patient is seen today 02/28/2020 in follow-up on the regular medical floor. She is currently sitting up in bed. She is still quite bronchospastic and wheezy. Still a lot of loose nonproductive coughing. She is maintaining O2 saturations in the low 90s on room air. She's afebrile. Hemodynamically stable. Blood culture reveals no growth. We count 16.3. Hemoglobin 10.8. So dium 139. Potassium 4.3. Creatinine 0.5. She is continued on DuoNeb inhalations, Pulmicort inhalations, IV Solu-Medrol. Antibiotics in form of ceftriaxone and azithromycin. Urinalysis positive for nitrates and WBCs. Objective - Vital Signs Vital signs: Vital Signs Temp 98.1 F 02/28/20 07:00 Pulse 82 02/28/20 13:37 Resp 18 02/28/20 07:00 BP 134/87 02/28/20 07:00 Pulse Ox 93 L 02/28/20 07:00 Intake & Output 02/27/20 02/28/20 02/28/20 18:59 06:59 18:59 Intake Total 450 Balance 450 Intake: Oral 450 Other: # Voids 1 1 - Exam GENERAL EXAM: Alert, pleasant, 44-year-old female patient, on room air, with a pulse ox of 93% comfortable in no apparent distress. HEAD: Normocephalic/atraumatic. EYES: Normal reaction of pupils, equal size. Conjunctiva pink, sclera white. NOSE: Clear with pink turbinates. THROAT: No erythema or exudates. NECK: No masses, no JVD, no thyroid enlargement, no adenopathy. CHEST: No chest wall deformity. Symmetrical expansion. LUNGS: Equal air entry with diffuse wheezes, scattered rhonchi CVS: Regular rate and rhythm, normal S1 and S2, no gallops, no murmurs, no rubs ABDOMEN: Soft, nontender. No hepatosplenomegaly, normal bowel sounds, no guarding or rigidity. EXTREMITIES: No clubbing, no edema, no cyanosis, 2+ pulses and upper and lower extremities. MUSCULOSKELETAL: Muscle strength and tone normal. SPINE: No scoliosis or deformity SKIN: No rashes CENTRAL NERVOUS SYSTEM: No focal deficits, tone is normal in all 4 extremities. Patient is blind PSYCHIATRIC: Alert and oriented -3. Appropriate affect. Intact judgment and insight. - Labs CBC & Chem 7: 02/28/20 05:56 02/28/20 05:56 Labs: Abnormal Lab Results - Last 24 Hours (Table) 02/27/20 02/27/20 02/28/20 Range/Units 16:22 20:42 05:56 WBC 16.3 H (3.8-10.6) k/uL Hgb 10.8 L (11.4-16.0) gm/dL RDW 16.2 H (11.5-15.5) % Neutrophils # 15.0 H (1.3-7.7) k/uL Lymphocytes # 0.7 L (1.0-4.8) k/uL Creatinine (0.6-1.5) mg/dL BUN/Creatinine Ratio (12.00-20.00) Ratio Glucose (70-110) mg/dL POC Glucose (mg/dL) 173 H 127 H (75-99) mg/dL Calcium (8.7-10.3) mg/dL 02/28/20 02/28/20 02/28/20 Range/Units 05:56 06:58 11:51 WBC (3.8-10.6) k/uL Hgb (11.4-16.0) gm/dL RDW (11.5-15.5) % Neutrophils # (1.3-7.7) k/uL Lymphocytes # (1.0-4.8) k/uL Creatinine 0.5 L (0.6-1.5) mg/dL BUN/Creatinine Ratio 40.00 H (12.00-20.00) Ratio Glucose 124 H (70-110) mg/dL POC Glucose (mg/dL) 122 H 182 H (75-99) mg/dL Calcium 8.5 L (8.7-10.3) mg/dL Microbiology - Last 24 Hours (Table) 02/25/20 12:24 Blood Culture - Preliminary Blood No Growth after 72 hours Assessment and Plan Assessment: 1 Left lower lobe pneumonia, community acquired, with bronchospasm 2 Urinary tract infection 3 History of multiple sclerosis 4 History of blindness 5 History of previous CVA 6 History of hypertension 7 History of hyperlipidemia 8 History of Donnie's angina 9 Prior history of MRSA infection Plan: The patient was seen and evaluated by Dr. Parikh Suspect urinary tract infection Ceftriaxone and azithromycin discontinued Initiated on Levaquin Continue bronchodilators We will continue to follow and make further accommodations based on her clinical status I, the cosigning physician, performed a history & physical examination of the patient. Lungs sounds with diffuse bilateral end expiratory wheeze, scattered rhonchi. Maintaining good O2 saturations in the 90s on room air. I discussed the assessment and plan of care with my nurse practitioner, Alka Cam. I attest to the above note as dictated by her.
--- NOTE | 2020-02-28 15:47 | PN ---
PROGRESS NOTE DATE OF SERVICE: 02/28/2020 This is a 44-year-old woman who was admitted with acute bibasilar pneumonia, left more than right, is being closely monitored. Patient also had a CT scan of the chest which confirmed the pneumonia. Otherwise, the patient is on broad spectrum IV antibiotics. COVID-19 testing has been negative. Routine cultures also negative so far. No chest pain. No palpitations. No fever. PHYSICAL EXAMINATION: GENERAL: Patient is alert and oriented times three. VITAL SIGNS: Pulse 88, blood pressure 135/87, respirations 18, temperature 98.1, pulse ox 93% on room air. HEENT: Conjunctivae normal. NECK: No jugular venous distention. RESPIRATORY: Breath sounds diminished at the bases. A few scattered rhonchi and crackles. HEART: S1 and S2, muffled. ABDOMEN: Soft, no tenderness. EXTREMITIES: No edema, no swelling. NERVOUS: No focal deficits. LABS: WBC 16.3, hemoglobin 10.8. ASSESSMENT: 1. Acute bibasilar pneumonia, left more than the right, possibly community-acquired pneumonia. COVID-19 ruled out. 2. Possible reactive bronchospasm. 3. History of cerebrovascular accident and transient ischemic attack with multiple strokes. 4. History of blindness. 5. History of multiple sclerosis. 6. History of angina. 7. Remote history of nicotine dependence. 8. Obesity with body mass index 30.5. 9. Increased WBC. 10.Hyponatremia. RECOMMENDATIONS AND DISCUSSION: I recommend to continue current medications, continue with monitoring and symptomatic treatment. Otherwise at this time continue the antibiotics and bronchodilators. Closely follow with Pulmonary. Guarded prognosis. Further recommendations to follow. MMODL / IJN: [id number] /
[2020-02-28] MEDS: BENZONATATE 100 MG CAP PO SCH ×2 (16:37→21:34)
[2020-02-28 16:57] LABS: Glucose,Whole Blood 137 mg/dL (75-99)
[2020-02-28 20:38] LABS: Glucose,Whole Blood 190 mg/dL (75-99)
[2020-02-28] MEDS: ATORVASTATIN 80 MG TAB PO SCH (21:34)
[2020-02-28] MEDS: traZODone HCL 100 MG TAB PO SCH (21:34)
[2020-02-28 23:34] LABS: Appearance,Urine Clear (Clear); Bilirubin,Urine Negative (Negative); Blood,Urine Negative (Negative); Color,Urine Light Yellow; Glucose,Urine (UA) Negative (Negative); Ketones,Urine Negative (Negative); Leukocyte Esterase,Urine Negative (Negative); Nitrite,Urine Negative (Negative); PH, Urine 6.5 (5.0-8.0); Protein,Urine Negative (Negative); Specific Gravity,Urine 1.016 (1.001-1.035); Urobilinogen,Urine <2.0 mg/dL (<2.0)
[2020-02-29] MEDS: HYDROmorphone 0.5 MG/0.5 ML SYRINGE IVP PRN ×2 (02:52→12:23)
[2020-02-29] MEDS: methylPREDNISolone SOD SUCCI 125 MG/2 ML VIAL IV SCH ×3 (05:45→18:21)
[2020-02-29 06:12] LABS: Anisocytosis Slight; Basophils # (A) 0.1 k/uL (0-0.2); Basophils % (A) 0 %; Eosinophils % (A) 0 %; HCT 32.8 % (34.0-46.0); HGB 10.2 gm/dL (11.4-16.0); Hypochromasia Slight; Lymphocytes # (A) 0.6 k/uL (1.0-4.8); Lymphocytes % (A) 4 %; MCH 26.2 pg (25.0-35.0); MCHC 31.2 g/dL (31.0-37.0); MCV 84.2 fL (80.0-100.0); Monocytes # (A) 0.5 k/uL (0-1.0); Monocytes % (A) 4 %; Neutrophils # (A) 13.1 k/uL (1.3-7.7); Neutrophils % (A) 92 %; Platelet Count 397 k/uL (150-450); RBC 3.89 m/uL (3.80-5.40); RDW 16.3 % (11.5-15.5); WBC 14.3 k/uL (3.8-10.6)
[2020-02-29 06:50] LABS: Glucose,Whole Blood 120 mg/dL (75-99)
[2020-02-29] MEDS: INSULIN ASPART (NovoLOG) 100 UNIT/ML VIAL SQ SCH ×4 (07:08→20:36)
[2020-02-29] MEDS: HYDROcodone/APAP 5-325MG 1 EACH TAB PO PRN ×2 (08:02→20:37)
[2020-02-29] MEDS: MAGNESIUM OXIDE 400 MG TAB PO SCH (08:02)
[2020-02-29] MEDS: amLODIPine 5 MG TAB PO SCH (08:02)
[2020-02-29] MEDS: CITALOPRAM HYDROBROMIDE 20 MG TAB PO SCH (08:02)
[2020-02-29] MEDS: lisinopriL 20 MG TAB PO SCH ×2 (08:02→20:37)
[2020-02-29] MEDS: PANTOPRAZOLE 40 MG TABLET PO SCH ×2 (08:02→12:22)
[2020-02-29] MEDS: clonazePAM 0.5 MG TAB PO SCH ×3 (08:02→20:38)
[2020-02-29] MEDS: ASPIRIN 81 MG PO SCH (08:02)
[2020-02-29] MEDS: BENZONATATE 100 MG CAP PO SCH ×3 (08:03→20:37)
[2020-02-29] MEDS: ENOXAPARIN 40 MG/0.4 ML SYRINGE SQ SCH (08:03)
[2020-02-29] MEDS: FORMOTEROL FUMARATE 20 MCG/2 ML NEBU INHALATION SCH ×2 (08:42→20:05)
[2020-02-29] MEDS: IPRATROPIUM-ALBUTEROL 3 ML NEB INHALATION SCH ×3 (08:42→19:52)
[2020-02-29] MEDS: BUDESONIDE 0.5 MG/2 ML NEBU INHALATION SCH (08:43)
[2020-02-29] MEDS: LEVOFLOXACIN 750 MG TAB PO SCH (09:00)
[2020-02-29 10:26] LABS: African American GFR (CKD) 135.5 (60.0-200.0); Anion Gap 9.7 mmol/L (4.00-12.00); Calcium 8.5 mg/dL (8.7-10.3); Carbon Dioxide 26.3 mmol/L (21.6-31.8); Non-African American GFR(CKD) 116.9 (60.0-200.0); Potassium 4.2 mmol/L (3.5-5.5)
[2020-02-29 11:34] LABS: Glucose,Whole Blood 124 mg/dL (75-99)
--- NOTE | 2020-02-29 12:29 | XR ---
EXAMINATION TYPE: XR chest 1V portable DATE OF EXAM: 02/29/2020 COMPARISON: 02/26/2020 INDICATION: Pneumonia left TECHNIQUE: Single frontal view of the chest is obtained. FINDINGS: The heart size is normal. The pulmonary vasculature is normal. There is some linear opacity likely related atelectasis in the retrocardiac region. Left lower lobe p neumonia is not evident. Left costophrenic angle slightly indistinct. Follow-up two-view chest can be performed as clinically indicated. IMPRESSION: 1. Plate atelectasis left retrocardiac region. 2. Minimal ill definition of the left costophrenic angle. Consider follow-up two-view chest.
--- NOTE | 2020-02-29 14:46 | P.PN ---
Subjective Progress Note Date: 02/29/20 Principal diagnosis: Community-acquired left lower lobe pneumonia with bronchospasm This is a 44-year-old white female patient that was admitted to the hospital on February 24 through the emergency department where she presented for evaluation of shortness of breath, cough, fatigue, malaise, but no fever, chills, no complaints of chest pain. Patient has no history of multiple sclerosis, she is on steroids, she does have history of prior stroke, blindness, she is lifetime nonsmoker, no history of any illicit drug use. COVID 19 was ruled out per PCR. Chest x-ray showed bilateral lower lobe infiltrates greater on the left with tiny pleural effusions. In addition patient had leukocytosis, with white blood cell count of 17, progesterone level came back negative at 0.02, inflammatory markers were nonelevated, troponin was less than 0.012, urinalysis showed evidence of infection with increased white blood cells, red blood cells. Patient was started on empiric antibiotics including azithromycin and Rocephin, she is on breathing treatments, she is feeling better, she's been afebrile since admission. Leukocytosis is improving, with blood cell count is down to 12.5 on today's labs, hemoglobin is 10.9, electrolytes and renal profile are within normal limits, no fever or chills. Blood culture has shown no growth. Yesterday's chest x-ray showed no acute cardiopulmonary process. Chest CT showed mild posterior medial left lower lobe infiltrate, possibly related to atelectasis or underlying pneumonia, and some additional bibasilar streaky opacities related to atelectasis. The patient is seen today 02/28/2020 in follow-up on the regular medical floor. She is currently sitting up in bed. She is still quite bronchospastic and wheezy. Still a lot of loose nonproductive coughing. She is maintaining O2 saturations in the low 90s on room air. She's afebrile. Hemodynamically stable. Blood culture reveals no growth. We count 16.3. Hemoglobin 10.8. So dium 139. Potassium 4.3. Creatinine 0.5. She is continued on DuoNeb inhalations, Pulmicort inhalations, IV Solu-Medrol. Antibiotics in form of ceftriaxone and azithromycin. Urinalysis positive for nitrates and WBCs. The patient is seen today 02/29/2020 in follow-up on the regular medical floor. She is awake and alert in no acute distress. Slightly better today compared to yesterday. Still quite bronchospastic and wheezy however. He is maintaining good O2 saturations in the mid 90s on room air. She's been afebrile. White count 14.3. Hemoglobin 10.2. Sodium 139. Potassium 4.2. Creatinine 0.5. Continued on bronchodilators, IV Solu-Medrol, antibiotics. Objective - Vital Signs Vital signs: Vital Signs Temp 97.9 F 02/29/20 07:00 Pulse 82 02/29/20 13:20 Resp 20 02/29/20 07:00 BP 141/93 02/29/20 07:00 Pulse Ox 98 02/29/20 08:44 Intake & Output 02/28/20 02/29/20 02/29/20 18:59 06:59 18:59 Intake Total 1080 Balance 1080 Intake: Oral 1080 Other: Voiding Method Toilet # Voids 3 - Exam GENERAL EXAM: Alert, pleasant, 44-year-old female patient, on room air, with a pulse ox of 98% comfortable in no apparent distress. HEAD: Normocephalic/atraumatic. EYES: Normal reaction of pupils, equal size. Conjunctiva pink, sclera white. NOSE: Clear with pink turbinates. THROAT: No erythema or exudates. NECK: No masses, no JVD, no thyroid enlargement, no adenopathy. CHEST: No chest wall deformity. Symmetrical expansion. LUNGS: Equal air entry with diffuse wheezes, scattered rhonchi CVS: Regular rate and rhythm, normal S1 and S2, no gallops, no murmurs, no rubs ABDOMEN: Soft, nontender. No hepatosplenomegaly, normal bowel sounds, no guarding or rigidity. EXTREMITIES: No clubbing, no edema, no cyanosis, 2+ pulses and upper and lower extremities. MUSCULOSKELETAL: Muscle strength and tone normal. SPINE: No scoliosis or deformity SKIN: No rashes CENTRAL NERVOUS SYSTEM: No focal deficits, tone is normal in all 4 extremities. Patient is blind PSYCHIATRIC: Alert and oriented -3. Appropriate affect. Intact judgment and insight. - Labs CBC & Chem 7: 02/29/20 05:39 02/29/20 05:39 Labs: Abnormal Lab Results - Last 24 Hours (Table) 02/28/20 02/28/20 02/29/20 Range/Units 16:56 20:37 05:39 WBC 14.3 H (3.8-10.6) k/uL Hgb 10.2 L (11.4-16.0) gm/dL Hct 32.8 L (34.0-46.0) % RDW 16.3 H (11.5-15.5) % Neutrophils # 13.1 H (1.3-7.7) k/uL Lymphocytes # 0.6 L (1.0-4.8) k/uL Creatinine (0.6-1.5) mg/dL BUN/Creatinine Ratio (12.00-20.00) Ratio Glucose (70-110) mg/dL POC Glucose (mg/dL) 137 H 190 H (75-99) mg/dL Calcium (8.7-10.3) mg/dL 02/29/20 02/29/20 02/29/20 Range/Units 05:39 06:48 11:32 WBC (3.8-10.6) k/uL Hgb (11.4-16.0) gm/dL Hct (34.0-46.0) % RDW (11.5-15.5) % Neutrophils # (1.3-7.7) k/uL Lymphocytes # (1.0-4.8) k/uL Creatinine 0.5 L (0.6-1.5) mg/dL BUN/Creatinine Ratio 38.00 H (12.00-20.00) Ratio Glucose 129 H (70-110) mg/dL POC Glucose (mg/dL) 120 H 124 H (75-99) mg/dL Calcium 8.5 L (8.7-10.3) mg/dL Microbiology - Last 24 Hours (Table) 02/25/20 12:24 Blood Culture - Preliminary Blood No Growth after 96 hours Assessment and Plan Assessment: 1 Left lower lobe pneumonia, community acquired, with bronchospasm 2 Urinary tract infection 3 History of multiple sclerosis 4 History of blindness 5 History of previous CVA 6 History of hypertension 7 History of hyperlipidemia 8 History of Donnie's angina 9 Prior history of MRSA infection Plan: The patient was seen and evaluated by Dr. Parikh Improved but still quite bronchospastic and wheezy Continue current treatment plan May need bronchoscopy with BAL if no improvement We will continue to follow and make further accommodations based on her clinical status I, the cosigning physician, performed a history & physical examination of the patient. Lungs sounds with diffuse bilateral end expiratory wheeze, scattered rhonchi. Maintaining good O2 saturations in the 90s on room air. I discussed the assessment and plan of care with my nurse practitioner, Alka Cam. I attest to the above note as dictated by her.
[2020-02-29 16:45] LABS: Glucose,Whole Blood 118 mg/dL (75-99)
[2020-02-29] MEDS: BUDESONIDE 1 MG/2 ML NEBU INHALATION SCH (19:49)
[2020-02-29 20:25] LABS: Glucose,Whole Blood 143 mg/dL (75-99)
[2020-02-29] MEDS: traZODone HCL 100 MG TAB PO SCH (20:37)
[2020-02-29] MEDS: ATORVASTATIN 80 MG TAB PO SCH (20:38)
--- NOTE | 2020-03-01 00:50 | PN ---
PROGRESS NOTE DATE OF SERVICE: 02/29/2020 This 44-year-old woman who was admitted with acute bibasilar pneumonia left more than right, is being closely monitored. The most recent chest x-ray which was done today which was personally reviewed by me showed a pneumonic process on the left side, which is improving. Dr. Parikh is following the patient closely. The patient is on broad- spectrum IV antibiotics and bronchodilators also. Dr. Parkih is considering possible bronchoscopy if there is no significant improvement. No chest pain. No palpitations. No fever. PHYSICAL EXAMINATION: On exam, alert and oriented x3. Pulse 101, blood pressure 134/84, respiration 19, temperature 98.2, pulse ox 96% on room air. HEENT: Conjunctivae normal. NECK: No jugular venous distention. CARDIOVASCULAR: S1, S2 muffled. RESPIRATORY: Breath sounds diminished at the bases. A few scattered rhonchi and crackles. ABDOMEN: Soft. NERVOUS SYSTEM: No focal deficits. LABS: WBC 14.3, hemoglobin 10.2, and Accu-Cheks 120, 124, and 118. Cultures are negative. ASSESSMENT: 1. Acute bibasilar pneumonia left more than the right, possibly community-acquired pneumonia. COVID-19 ruled out. 2. Possible reactive bronchospasm. 3. History of cerebrovascular accident, transient ischemic attack with multiple strokes. 4. History of blindness. 5. History of multiple sclerosis. 6. History of angina. 7. Remote history of nicotine dependence. 8. Obesity with body mass index of 30.5. 9. Increased WBC. 10.Hyponatremia. RECOMMENDATIONS AND DISCUSSION: Recommend to continue current medications, continue with symptomatic treatment. Continue with antibiotics, bronchodilators. Closely follow with Pulmonary, possible bronchoscopy if the patient is not improving. Further recommendations to follow. MMODL / IJN: [id number] /
[2020-03-01] MEDS: methylPREDNISolone SOD SUCCI 125 MG/2 ML VIAL IV SCH ×4 (01:40→17:45)
[2020-03-01] MEDS: HYDROmorphone 0.5 MG/0.5 ML SYRINGE IVP PRN ×2 (02:35→10:15)
[2020-03-01 03:30] LABS: Mycoplasma IgG Antibody (EIA) 1.39 INDEX (<=0.90); Mycoplasma IgM Antibody 0.13 INDEX (<=0.90)
[2020-03-01] MEDS: HYDROcodone/APAP 5-325MG 1 EACH TAB PO PRN ×3 (05:29→21:01)
[2020-03-01 06:45] LABS: Anisocytosis Slight; HCT 32.5 % (34.0-46.0); HGB 10.3 gm/dL (11.4-16.0); Hypochromasia Moderate; MCH 27.2 pg (25.0-35.0); MCHC 31.7 g/dL (31.0-37.0); MCV 85.7 fL (80.0-100.0); Mean Platelet Volume 6.9; Platelet Count 377 k/uL (150-450); RDW 16.4 % (11.5-15.5); WBC 15.6 k/uL (3.8-10.6)
[2020-03-01 06:59] LABS: Glucose,Whole Blood 119 mg/dL (75-99)
[2020-03-01] MEDS: IPRATROPIUM-ALBUTEROL 3 ML NEB INHALATION SCH ×3 (07:31→21:15)
[2020-03-01] MEDS: BUDESONIDE 1 MG/2 ML NEBU INHALATION SCH ×2 (07:31→21:15)
[2020-03-01] MEDS: FORMOTEROL FUMARATE 20 MCG/2 ML NEBU INHALATION SCH ×2 (07:31→21:14)
[2020-03-01] MEDS: INSULIN ASPART (NovoLOG) 100 UNIT/ML VIAL SQ SCH ×4 (07:32→20:57)
[2020-03-01 07:44] LABS: Band Neutrophils % 2 %; Lymphocytes # (M) 0.47 k/uL (1.0-4.8); Metamyelocytes # (M) 0.16 k/uL (0); Metamyelocytes % 1 %; Monocytes # (M) 1.09 k/uL (0-1.0); Myelocytes # (M) 0.31 k/uL (0); Myelocytes % 2 %; Neutrophils % (M) 86 %; Nucleated Red Blood Cells 0 /100 WBC (0-0); Total Cells Counted 200
[2020-03-01] MEDS: BENZONATATE 100 MG CAP PO SCH ×3 (08:00→20:58)
[2020-03-01] MEDS: ENOXAPARIN 40 MG/0.4 ML SYRINGE SQ SCH (08:01)
[2020-03-01] MEDS: ASPIRIN 81 MG PO SCH (08:01)
[2020-03-01] MEDS: amLODIPine 5 MG TAB PO SCH (08:01)
[2020-03-01] MEDS: lisinopriL 20 MG TAB PO SCH ×2 (08:01→20:58)
[2020-03-01] MEDS: CITALOPRAM HYDROBROMIDE 20 MG TAB PO SCH (08:01)
[2020-03-01] MEDS: PANTOPRAZOLE 40 MG TABLET PO SCH ×2 (08:01→12:01)
[2020-03-01] MEDS: clonazePAM 0.5 MG TAB PO SCH ×3 (08:01→20:58)
[2020-03-01] MEDS: MAGNESIUM OXIDE 400 MG TAB PO SCH (08:01)
[2020-03-01] MEDS: LEVOFLOXACIN 750 MG TAB PO SCH (08:03)
--- NOTE | 2020-03-01 08:38 | XR ---
EXAMINATION TYPE: XR chest 2V DATE OF EXAM: 03/01/2020 COMPARISON: 02/29/2020 TECHNIQUE: PA and lateral views submitted. HISTORY: Cough possible pneumonia FINDINGS: Interstitial pattern seen with bilateral infiltrate and small effusion. No pneumothorax. Heart size s table. IMPRESSION: 1. Bilateral lower lobe infiltrate and small effusion. Interstitial pattern seen. Findings could been the basis of a pneumonia or atypical pneumonia. Mild CHF in the differential diagnosis.
[2020-03-01 11:04] LABS: African American GFR (CKD) 127.6 (60.0-200.0); Albumin 3.6 g/dL (3.80-4.90); Albumin/Globulin Ratio 2.77 (1.60-3.17); Anion Gap 6.9 mmol/L (4.00-12.00); BUN/Creat Ratio 36.67 Ratio (12.00-20.00); Calcium 8.8 mg/dL (8.7-10.3); Carbon Dioxide 27.1 mmol/L (21.6-31.8); Globulin 1.3 g/dL (1.6-3.3); Non-African American GFR(CKD) 110.1 (60.0-200.0); Potassium 4.2 mmol/L (3.5-5.5); Total Bilirubin 0.3 mg/dL (0.2-1.2); Total Protein 4.9 g/dL (6.2-8.2)
[2020-03-01 11:36] LABS: Glucose,Whole Blood 142 mg/dL (75-99)
[2020-03-01] MEDS ORDERED: SENNOSIDES 8.6 MG TAB PO PRN (12:11)
[2020-03-01] MEDS: guaiFENesin-DM 100-10MG/5ML 10 ML CUP PO SCH (14:15)
[2020-03-01] MEDS: DOCUSATE 100 MG CAP PO SCH ×2 (14:15→20:57)
--- NOTE | 2020-03-01 14:57 | P.PN ---
Subjective Progress Note Date: 03/01/20 Principal diagnosis: Shortness of breath This is a 44-year-old white female patient that was admitted to the hospital on February 24 through the emergency department where she presented for evaluation of shortness of breath, cough, fatigue, malaise, but no fever, chills, no co mplaints of chest pain. Patient has no history of multiple sclerosis, she is on steroids, she does have history of prior stroke, blindness, she is lifetime nonsmoker, no history of any illicit drug use. COVID 19 was ruled out per PCR. Chest x-ray showed bilateral lower lobe infiltrates greater on the left with tiny pleural effusions. In addition patient had leukocytosis, with white blood cell count of 17, progesterone level came back negative at 0.02, inflammatory markers were nonelevated, troponin was less than 0.012, urinalysis showed evidence of infection with increased white blood cells, red blood cells. Patient was started on empiric antibiotics including azithromycin and Rocephin, she is on breathing treatments, she is feeling better, she's been afebrile since admission. Leukocytosis is improving, with blood cell count is down to 12.5 on today's labs, hemoglobin is 10.9, electrolytes and renal profile are within normal limits, no fever or chills. Blood culture has shown no growth. Yesterday's chest x-ray showed no acute cardiopulmonary process. Chest CT showed mild posterior medial left lower lobe infiltrate, possibly related to atelectasis or underlying pneumonia, and some additional bibasilar streaky opacities related to atelectasis. On 03/01/2020 patient seen in follow-up on medical surgical floor, she is awake and alert, sitting up in bed, in no acute distress, she is on room air, she still has quite significant coughing spells, she states her sternum is sore from all the coughing, she remains on Tessalon pearls, will add Robitussin DM to her medical treatment, she is on Levaquin for pneumatic coverage, remains on Solu- Medrol 60 mg every 6 hours. Lung sounds are still bronchospastic, with some diffuse rhonchi, room air pulse ox is 95%, no fever or chills. Today's labs show elevated white count of 15.6, hemoglobin of 10.3, electrolyte and renal pro file are within normal limits, blood culture has has shown no growth. No hemoptysis. She remains on nebulized bronchodilators. He receiving Dilaudid for pain control chest discomfort. Objective - Vital Signs Vital signs: Vital Signs Temp 97.8 F 03/01/20 14:43 Pulse 89 03/01/20 14:43 Resp 17 03/01/20 14:43 BP 125/84 03/01/20 14:43 Pulse Ox 95 03/01/20 14:43 Intake & Output 02/29/20 03/01/20 03/01/20 18:59 06:59 18:59 Other: Voiding Method Toilet # Voids 4 1 3 - Exam GENERAL EXAM: Alert, pleasant, 44-year-old white female, on room air, with a pulse ox of 95% comfortable in no apparent distress. HEAD: Normocephalic/atraumatic. EYES: Normal reaction of pupils, equal size. Conjunctiva pink, sclera white. NOSE: Clear with pink turbinates. THROAT: No erythema or exudates. NECK: No masses, no JVD, no thyroid enlargement, no adenopathy. CHEST: No chest wall deformity. Symmetrical expansion. LUNGS: Equal air entry with diffuse wheezes CVS: Regular rate and rhythm, normal S1 and S2, no gallops, no murmurs, no rubs ABDOMEN: Soft, nontender. No hepatosplenomegaly, normal bowel sounds, no guarding or rigidity. EXTREMITIES: No clubbing, no edema, no cyanosis, 2+ pulses and upper and lower extremities. MUSCULOSKELETAL: Muscle strength and tone normal. SPINE: No scoliosis or deformity SKIN: No rashes CENTRAL NERVOUS SYSTEM: Alert and oriented -3. No focal deficits, tone is normal in all 4 extremities. Patient is blind PSYCHIATRIC: Alert and oriented -3. Appropriate affect. Intact judgment and insight. - Labs CBC & Chem 7: 03/01/20 06:20 03/01/20 06:20 Labs: Abnormal Lab Results - Last 24 Hours (Table) 02/28/20 02/29/20 02/29/20 Range/Units 05:56 16:41 20:23 WBC (3.8-10.6) k/uL Hgb (11.4-16.0) gm/dL Hct (34.0-46.0) % RDW (11.5-15.5) % Neutrophils # (Manual) (1.3-7.7) k/uL Lymphocytes # (Manual) (1.0-4.8) k/uL Monocytes # (Manual) (0-1.0) k/uL Metamyelocytes # (Man) (0) k/uL Myelocytes # (Manual) (0) k/uL BUN/Creatinine Ratio (12.00-20.00) Ratio Glucose (70-110) mg/dL POC Glucose (mg/dL) 118 H 143 H (75-99) mg/dL Total Protein (6.2-8.2) g/dL Albumin (3.80-4.90) g/dL Globulin (1.6-3.3) g/dL Mycoplasma pneumon IgG 1.39 H (<=0.90) INDEX 03/01/20 03/01/20 03/01/20 Range/Units 06:20 06:20 06:58 WBC 15.6 H (3.8-10.6) k/uL Hgb 10.3 L (11.4-16.0) gm/dL Hct 32.5 L (34.0-46.0) % RDW 16.4 H (11.5-15.5) % Neutrophils # (Manual) 13.70 H (1.3-7.7) k/uL Lymphocytes # (Manual) 0.47 L (1.0-4.8) k/uL Monocytes # (Manual) 1.09 H (0-1.0) k/uL Metamyelocytes # (Man) 0.16 H (0) k/uL Myelocytes # (Manual) 0.31 H (0) k/uL BUN/Creatinine Ratio 36.67 H (12.00-20.00) Ratio Glucose 114 H (70-110) mg/dL POC Glucose (mg/dL) 119 H (75-99) mg/dL Total Protein 4.9 L (6.2-8.2) g/dL Albumin 3.60 L (3.80-4.90) g/dL Globulin 1.3 L (1.6-3.3) g/dL Mycoplasma pneumon IgG (<=0.90) INDEX 03/01/20 Range/Units 11:35 WBC (3.8-10.6) k/uL Hgb (11.4-16.0) gm/dL Hct (34.0-46.0) % RDW (11.5-15.5) % Neutrophils # (Manual) (1.3-7.7) k/uL Lymphocytes # (Manual) (1.0-4.8) k/uL Monocytes # (Manual) (0-1.0) k/uL Metamyelocytes # (Man) (0) k/uL Myelocytes # (Manual) (0) k/uL BUN/Creatinine Ratio (12.00-20.00) Ratio Glucose (70-110) mg/dL POC Glucose (mg/dL) 142 H (75-99) mg/dL Total Protein (6.2-8.2) g/dL Albumin (3.80-4.90) g/dL Globulin (1.6-3.3) g/dL Mycoplasma pneumon IgG (<=0.90) INDEX Microbiology - Last 24 Hours (Table) 02/25/20 12:24 Blood Culture - Preliminary Blood No Growth after 120 hours Assessment and Plan Plan: Assessment: #1. Dyspnea related to possibility of left lower lobe pneumonia, community acquired, with bronchospasm #2. Possible urinary tract infection #3. History of multiple sclerosis #4. History of blindness #5. History of previous CVA #6. History of hypertension #7. History of hyperlipidemia #8. History of Donnie's angina #9. Prior history of MRSA infection Plan: Continue with current medical treatment, continue current antibiotic coverage, IV steroids, and nebulized bronchodilators, patient continues to complain of severe coughing spells, will add Robitussin DM, continue with Tessalon Perles, she is congested, she is bronchospastic, she is slow to improve, will the patient nothing by mouth after midnight, will put the patient on scheduled for bronchoscopy with bronchial alveolar lavage tomorrow, this was discussed with the patient and the patient and her sister are agreeable to proceed. I performed a history & physical examination of the patient and discussed their management with my nurse practitioner, Rhona Uribe. I reviewed the nurse practitioner's note and agree with the documented findings and plan of care. Lung sounds are positive for diffuse wheezes. The findings and the impression was discussed with the patient. I attest to the documentation by the nurse practitioner. Time with Patient: Less than 30
--- NOTE | 2020-03-01 15:23 | PN ---
PROGRESS NOTE DATE OF SERVICE: 03/01/2020 This 44-year-old woman admitted with bilateral pneumonia, left more than the right is being closely monitored. Patient still has significant bronchospasm. Dr. Day is planning bronchoscopy tomorrow. Most recent chest x-ray which was personally reviewed by me showed bilateral opacities, left more than right. Past medical history reviewed. REVIEW OF SYSTEMS: CARDIOVASCULAR: No angina. RESPIRATION: As mentioned earlier. GI as mentioned. : No dysuria. NERVOUS SYSTEM: No numbness or weakness. CURRENT MEDICATIONS: Reviewed and include: 1. Boaz. 2. DuoNeb. 3. Norvasc. 4. Aspirin. 5. Lipitor. 6. Tessalon. 7. Pulmicort. 8. Klonopin. 9. Colace. 10.Lovenox. 11.Perforomist. 12.Robitussin. 13.Dilaudid. 14.Levaquin. 15.Zestril. 16.Magnesium oxide. 17.Solu-Medrol. 18.Senokot. 19.Desyrel. 20.Doses reviewed. PHYSICAL EXAM: Patient is alert, oriented x3. The pulse is 80. Blood pressure 113/89. Respiratory rate 18, temperature 98.1, pulse ox 92% on room air. HEENT: Conjunctivae normal. NECK: No JVD. CARDIOVASCULAR: S1, S2 muffled. RESPIRATORY: Breath sounds diminished in the bases. Bilateral scattered rhonchi and crackles. Expiratory wheezing also present mostly in the bases posteriorly, left more than the right. ABDOMEN: Soft, nontender. No mass palpable. LEGS are no edema. No swelling. NERVOUS SYSTEM: No focal deficits. LABS: WBC 15.2, hemoglobin 10.3, otherwise glucose 114. Albumin is 3.6. ASSESSMENT: 1. Acute bibasilar pneumonia, left more than the right, possibly community-acquired pneumonia. COVID-19 ruled out. 2. Possible reactive bronchospasm. Slow to improve. 3. History of cerebrovascular accident, transient ischemic attack with multiple strokes. 4. History of blindness. 5. History of multiple sclerosis. 6. History of angina. 7. Remote history of nicotine dependence. 8. Obesity with body mass index of 30.5. 9. Increased WBC. 10.Hyponatremia, improved. RECOMMENDATIONS AND DISCUSSION: In this 44-year-old woman who presented with multiple complex medical issues, we will monitor the patient closely. Continue the current medications, management and symptomatic treatment. Otherwise, at this time, I recommend continue the bronchodilators. Continue empiric antibiotics. Cultures are noted as before, as mentioned earlier. Also recommend bronchodilator treatment, nebulizer as an outpatient, also. Closely follow with Dr. Day. The patient will undergo bronchoscopy tomorrow. Further recommendations to follow. Discussed with the patient. Discussed with the family. Further recommendations to follow. A copy of dictation being forwarded to Dr. Caldwell who is the primary care physician. MMODL / TION: [id number] /
[2020-03-01 16:29] LABS: Glucose,Whole Blood 136 mg/dL (75-99)
[2020-03-01 20:17] LABS: Glucose,Whole Blood 145 mg/dL (75-99)
[2020-03-01] MEDS: ATORVASTATIN 80 MG TAB PO SCH (20:57)
[2020-03-01] MEDS: traZODone HCL 100 MG TAB PO SCH (20:58)
[2020-03-02] MEDS: methylPREDNISolone SOD SUCCI 125 MG/2 ML VIAL IV SCH ×4 (00:05→17:33)
[2020-03-02] MEDS: HYDROmorphone 0.5 MG/0.5 ML SYRINGE IVP PRN ×4 (00:05→19:33)
[2020-03-02] MEDS: guaiFENesin-DM 100-10MG/5ML 10 ML CUP PO SCH ×4 (04:11→20:47)
[2020-03-02] MEDS: PANTOPRAZOLE 40 MG TABLET PO SCH ×2 (06:41→12:12)
[2020-03-02] MEDS: amLODIPine 5 MG TAB PO SCH (06:41)
[2020-03-02] MEDS: ENOXAPARIN 40 MG/0.4 ML SYRINGE SQ SCH (06:42)
[2020-03-02] MEDS: CITALOPRAM HYDROBROMIDE 20 MG TAB PO SCH (06:42)
[2020-03-02] MEDS: ASPIRIN 81 MG PO SCH (06:42)
[2020-03-02] MEDS: BENZONATATE 100 MG CAP PO SCH ×3 (06:42→21:46)
[2020-03-02] MEDS: lisinopriL 20 MG TAB PO SCH ×2 (06:43→20:47)
[2020-03-02 06:52] LABS: Glucose,Whole Blood 122 mg/dL (75-99)
[2020-03-02] MEDS: IPRATROPIUM-ALBUTEROL 3 ML NEB INHALATION SCH ×3 (06:57→19:10)
[2020-03-02] MEDS: FORMOTEROL FUMARATE 20 MCG/2 ML NEBU INHALATION SCH ×2 (06:57→19:10)
[2020-03-02] MEDS: BUDESONIDE 1 MG/2 ML NEBU INHALATION SCH ×2 (06:57→19:10)
[2020-03-02] MEDS: INSULIN ASPART (NovoLOG) 100 UNIT/ML VIAL SQ SCH ×4 (07:24→21:46)
[2020-03-02] MEDS: DOCUSATE 100 MG CAP PO SCH ×2 (07:52→20:47)
[2020-03-02] MEDS: LEVOFLOXACIN 750 MG TAB PO SCH (07:55)
[2020-03-02] MEDS: clonazePAM 0.5 MG TAB PO SCH ×3 (07:56→21:46)
--- NOTE | 2020-03-02 09:52 | P.PN ---
Subjective This is a pleasant 44 years old female who presents with respiratory symptoms and found to have left lower lobe pneumonia, she still have respiratory difficulty and despite being on treatment with oral Levaquin and high dose of Solu-Medrol at 100 mg every 6 hours. Also she is on baby aspirin. And she is followed closely by pulmonary service. Patient is scheduled to go for bronchoscopy today with a bronchoalveolar lavage for persistent symptoms and slow to heal. Patient at rest she looks breathing quietly and she is in room air however examination of the chest shows significant wheezing with gurgling breath sounds. She still coughing but nothing this coming up as per patient. However she denies chest pain. Influenza virus was not detected yesterday. Objective - Vital Signs Vital signs: Vital Signs Temp 98.6 F 03/02/20 07:00 Pulse 80 03/02/20 07:21 Resp 17 03/02/20 07:00 BP 134/89 03/02/20 07:00 Pulse Ox 93 L 03/02/20 07:00 Intake & Output 03/01/20 03/02/20 03/02/20 18:59 06:59 18:59 Other: Voiding Method Toilet # Voids 3 2 - Exam -GENERAL: The patient is alert and oriented x3, not in any acute distress. Obese HEENT: Pupils are round and equally reacting to light. EOMI. No scleral icterus. No conjunctival pallor. Normocephalic, atraumatic. No pharyngeal erythema. No thyromegaly. CARDIOVASCULAR: S1 and S2 present. No murmurs, rubs, or gallops. -PULMONARY: Chest is clear to auscultation, no significant wheezing and gurgling harsh breath sounds on both sides ABDOMEN: Soft, nontender, nondistended, normoactive bowel sounds. No palpable organomegaly. MUSCULOSKELETAL: No joint swelling or deformity. EXTREMITIES: No cyanosis, clubbing, or pedal edema. NEUROLOGICAL: Gross neurological examination did not reveal any focal deficits. SKIN: No rashes. no petechiae. - Labs CBC & Chem 7: 03/01/20 06:20 03/01/20 06:20 Labs: Abnormal Lab Results - Last 24 Hours (Table) 03/01/20 03/01/20 03/01/20 Range/Units 06:20 11:35 16:27 BUN/Creatinine Ratio 36.67 H (12.00-20.00) Ratio Glucose 114 H (70-110) mg/dL POC Glucose (mg/dL) 142 H 136 H (75-99) mg/dL Total Protein 4.9 L (6.2-8.2) g/dL Albumin 3.60 L (3.80-4.90) g/dL Globulin 1.3 L (1.6-3.3) g/dL 03/01/20 03/02/20 Range/Units 20:14 06:50 BUN/Creatinine Ratio (12.00-20.00) Ratio Glucose (70-110) mg/dL POC Glucose (mg/dL) 145 H 122 H (75-99) mg/dL Total Protein (6.2-8.2) g/dL Albumin (3.80-4.90) g/dL Globulin (1.6-3.3) g/dL Microbiology - Last 24 Hours (Table) 02/25/20 12:24 Blood Culture - Preliminary Blood No Growth after 120 hours Assessment and Plan Assessment: Left lower lobe pneumonia with acute tracheobronchitis History of multiple sclerosis History of previous CVA Hypertension Hyperlipidemia History of MRSA infection Plan: This is a pleasant 44 years old female who presents with pneumonia and bronchospasm. Continue with antibiotics and steroids. Follow-up recommendation by the pulmonary service, patient is scheduled to go for bronchoscopy today with bronchoalveolar lavage. Labs and medication were reviewed.. Continue same treatment. Continue with symptomatic treatment. Resume home medication. Monitor lytes and vitals. DVT and GI prophylaxis. Further recommendationsas per clinical course of the patient DVT prophylaxis: Subcutaneous Lovenox GI Prophylaxis: Ppi
[2020-03-02 11:16] LABS: Glucose,Whole Blood 124 mg/dL (75-99)
[2020-03-02] MEDS: MAGNESIUM OXIDE 400 MG TAB PO SCH (12:12)
--- NOTE | 2020-03-02 12:19 | P.PN ---
Subjective Progress Note Date: 03/02/20 Principal diagnosis: Shortness of breath This is a 44-year-old white female patient that was admitted to the hospital on February 24 through the emergency department where she presented for evaluation of shortness of breath, cough, fatigue, malaise, but no fever, chills, no co mplaints of chest pain. Patient has no history of multiple sclerosis, she is on steroids, she does have history of prior stroke, blindness, she is lifetime nonsmoker, no history of any illicit drug use. COVID 19 was ruled out per PCR. Chest x-ray showed bilateral lower lobe infiltrates greater on the left with tiny pleural effusions. In addition patient had leukocytosis, with white blood cell count of 17, progesterone level came back negative at 0.02, inflammatory markers were nonelevated, troponin was less than 0.012, urinalysis showed evidence of infection with increased white blood cells, red blood cells. Patient was started on empiric antibiotics including azithromycin and Rocephin, she is on breathing treatments, she is feeling better, she's been afebrile since admission. Leukocytosis is improving, with blood cell count is down to 12.5 on today's labs, hemoglobin is 10.9, electrolytes and renal profile are within normal limits, no fever or chills. Blood culture has shown no growth. Yesterday's chest x-ray showed no acute cardiopulmonary process. Chest CT showed mild posterior medial left lower lobe infiltrate, possibly related to atelectasis or underlying pneumonia, and some additional bibasilar streaky opacities related to atelectasis. On 03/01/2020 patient seen in follow-up on medical surgical floor, she is awake and alert, sitting up in bed, in no acute distress, she is on room air, she still has quite significant coughing spells, she states her sternum is sore from all the coughing, she remains on Tessalon pearls, will add Robitussin DM to her medical treatment, she is on Levaquin for pneumatic coverage, remains on Solu- Medrol 60 mg every 6 hours. Lung sounds are still bronchospastic, with some diffuse rhonchi, room air pulse ox is 95%, no fever or chills. Today's labs show elevated white count of 15.6, hemoglobin of 10.3, electrolyte and renal pro file are within normal limits, blood culture has has shown no growth. No hemoptysis. She remains on nebulized bronchodilators. He receiving Dilaudid for pain control chest discomfort. On 03/02/2020 patient seen in follow-up on medical surgical floor. Still bronchospastic on today's exam, still congested, but somewhat better, she is on room air, her pulse ox is 93%, she's been afebrile, breathing at rest seems to be comfortable, no acute events over night, no chest pain, no hemoptysis. Vital signs have been stable. Remains on nebulized bronchodilators, she is on Tessalon Perles, and cough syrup, cough seems to be improved on today's exam. He is on Levaquin for empiric pneumatic coverage, yesterday we increased patient's IV steroids 200 mg every 6 hours on which she remains today. She's been nothing by mouth after midnight, for bronchoscopy with BAL today Objective - Vital Signs Vital signs: Vital Signs Temp 98.6 F 03/02/20 07:00 Pulse 80 03/02/20 07:21 Resp 17 03/02/20 07:00 BP 134/89 03/02/20 07:00 Pulse Ox 93 L 03/02/20 07:00 Intake & Output 03/01/20 03/02/20 03/02/20 18:59 06:59 18:59 Other: Voiding Method Toilet # Voids 3 2 - Exam GENERAL EXAM: Alert, pleasant, 44-year-old white female, on room air, with a pulse ox of 93% comfortable in no apparent distress. HEAD: Normocephalic/atraumatic. EYES: Normal reaction of pupils, equal size. Conjunctiva pink, sclera white. NOSE: Clear with pink turbinates. THROAT: No erythema or exudates. NECK: No masses, no JVD, no thyroid enlargement, no adenopathy. CHEST: No chest wall deformity. Symmetrical expansion. LUNGS: Equal air entry with diffuse wheezes CVS: Regular rate and rhythm, normal S1 and S2, no gallops, no murmurs, no rubs ABDOMEN: Soft, nontender. No hepatosplenomegaly, normal bowel sounds, no guarding or rigidity. EXTREMITIES: No clubbing, no edema, no cyanosis, 2+ pulses and upper and lower extremities. MUSCULOSKELETAL: Muscle strength and tone normal. SPINE: No scoliosis or deformity SKIN: No rashes CENTRAL NERVOUS SYSTEM: Alert and oriented -3. No focal deficits, tone is normal in all 4 extremities. Patient is blind PSYCHIATRIC: Alert and oriented -3. Appropriate affect. Intact judgment and insight. - Labs CBC & Chem 7: 03/01/20 06:20 03/01/20 06:20 Labs: Abnormal Lab Results - Last 24 Hours (Table) 03/01/20 03/01/20 03/02/20 Range/Units 16:27 20:14 06:50 POC Glucose (mg/dL) 136 H 145 H 122 H (75-99) mg/dL 03/02/20 Range/Units 11:15 POC Glucose (mg/dL) 124 H (75-99) mg/dL Microbiology - Last 24 Hours (Table) 02/25/20 12:24 Blood Culture - Preliminary Blood No Growth after 120 hours Assessment and Plan Plan: Assessment: #1. Dyspnea related to possibility of left lower lobe pneumonia, community acquired, with bronchospasm #2. Possible urinary tract infection #3. History of multiple sclerosis #4. History of blindness #5. History of previous CVA #6. History of hypertension #7. History of hyperlipidemia #8. History of Donnie's angina #9. Prior history of MRSA infection Plan: Continue current dose of IV steroids, keep nothing by mouth, patient has been boarded for a bronchoscopy with BAL today by Dr. Day. Continue nebulized bronchodilators, and current antibiotics. I performed a history & physical examination of the patient and discussed their management with my nurse practitioner, Rhona Uribe. I reviewed the nurse practitioner's note and agree with the documented findings and plan of care. Lung sounds are positive for diffuse wheezes. The findings and the impression was discussed with the patient. I attest to the documentation by the nurse practitioner. Time with Patient: Less than 30
[2020-03-02] MEDS ORDERED: ALPRAZolam 0.5 MG TAB PO STA (12:36)
[2020-03-02] MEDS ORDERED: diphenhydrAMINE 50 MG/ML 1 ML VIAL IVP STA (12:36)
[2020-03-02] MEDS ORDERED: IV FLUID CONTINUATION 1,000 ML IV ONE (13:15)
[2020-03-02] MEDS ORDERED: LIDOCAINE 2% INJ 20 MG/ML INTRATRACH ONE ×2 (13:16→13:39)
--- NOTE | 2020-03-02 13:50 | P.PCN ---
Date of Procedure: 03/02/20 Preoperative Diagnosis: Shortness of breath, persistent pneumonia Postoperative Diagnosis: Pharyngeal/laryngeal candidiasis Inflammation/ swelling of the arytenoids Loose respiratory secretions retained throughout the airway, bronchoscopy was completed with a bronchial alveolar lavage of the lingula. Procedure(s) Performed: Flexible bronchoscopy, airway inspection, bronchioloalveolar lavage of the left upper lobe/lingular segment Anesthesia: MAC Surgeon: Mariano Day Estimated Blood Loss (ml): 0 Pathology: other Condition: stable Disposition: floor Operative Findings: This procedure was done under conscious sedation with an acidic it is being administered by anesthesia the bedside. The patient was given a combination of propofol, Versed, fentanyl, ketamine and lidocaine. All of these medications was given by [employer]PER[employer] the bedside. After achieving adequate sedation, the flexible bronchoscope was introduced through the right nostril was advanced into the upper airway. Examination of posterior pharynx and larynx with them. There was patchy cotton-cheese white spots covering the epiglottis, laryngeal wall and pharyngeal wall in addition to the arytenoids. This was very much consistent with pharyngeal/laryngeal candidiasis. In addition, the arytenoids were quite inflamed and swollen. Nevertheless, the vocal cords and normal function with normal abduction and adduction without any polyps or lesions identified. A total of 2 mL of 1% lidocaine was applied to the vocal cords and following that the bronchoscope was advanced into the upper trachea. Examination tracheal bronchial tree was done. We'll suspicious for secretions were encountered throughout the patient's airways especially in the distal trachea and in the left mainstem bronchus and some in the right mainstem bronchus. Rest or secretions were suctioned out without any major difficulties. Airway inspection was completed. The visualized airways into the trachea, bilateral mainstem bronchi, right upper lobe bronchus, bronchus intermedius, right middle lobe bronchus and right lower lobe bronchitis in addition to the left upper lobe bronchus and left lower lobe bronchus and the various substances and subsegments. All of this airways were patent. There was no evidence of any tracheal bronchomalacia. There was no evidence of an endobronchial tumor or lesions. There was some mild mucosal inflammatory changes throughout the airways. After performing therapeutic airway suctioning, the bronchoscope was wedged in the lingula and a bronchioloalveolar lavage of the severe segment of the lingula with elevated total of fluid was infused and 25 mL was aspirated without any major difficulties. At the completion of the procedure, the bronchoscope was removed and the patient was just recovering stable condition. Plan 1 Send bronchioloalveolar lavage for microbial cultures and analysis 2 add Diflucan 100 mg 1 by mouth by mouth for the next 7 days 3 continue the bronchodilators and steroids for another 24-48 hours pending further results from the culture results obtained today.
--- NOTE | 2020-03-02 14:24 | P.PCN ---
Date of Procedure: 03/02/20 Preoperative Diagnosis: COPD exacerbation, mucous plugs, brodiffuse tracheobronchitis Postoperative Diagnosis: COPD exacerbation, mucous plugs, brodiffuse tracheobronchitis Procedure(s) Performed: Flexible bronchoscopy, therapeutic airway suctioning, removal of mucous plugs, bronchial washing. Anesthesia: MAC Surgeon: Mariano Day Estimated Blood Loss (ml): 0 Pathology: other Condition: stable Disposition: floor Operative Findings: This is a 58-year-old male patient with COPD and obstructive sleep apnea who has been having difficulties with bronchospasm wheezing and mucous plugging. As such, a bronchoscopy for airway inspection and therapeutic airway suctioning wa s performed. Procedure include flexible bronchoscopy, therapeutic it was suctioning and removal of mucous plugs This procedure was done under conscious sedation. The patient was given a combination of Versed, ketamine and propofol to keep him quite sedated. The flexible bronchoscope was introduced through the right nostril was advanced into the upper airway. Examination of the posterior oropharynx and larynx was done and the patient had dynamic collapse stability of the pharyngeal laryngeal cotto consistent with obstructive sleep apnea. Epiglottis was identified and it was quite erythematous inflamed with some cotton cheese white spots covering the surface. The arytenoids were slightly inflamed and swollen. Vocal cords were within normal limits. A total dosage of 1% lidocaine was applied to the vocal cords and following that the bronchoscope was introduced into the upper trachea. Immediately, it was noted that the patient had significant tracheal bronchomalacia. In addition to that there was copious amount of thick purulent mucous plugs occupying the trachea and bilateral mainstem bronchi. These were very abundant and large-sized mucous plug. It was difficult to do a therapeutic airway suctioning as the patient was having episodes of desaturation. I had to interrupt the procedure on several occasions to allow the patient's oxygenation did recover above 85%. During the process, introduced the bronchoscope on multiple occasions where I irrigated the mucous plugs with saline and I was able to suction out large chunks of mucous plug that was quite thick and greenish and purulent. At the completion of the procedure, the patient's airway was clear of any large-sized mucous plugs. There was some limited leftover rest or secretions that were present in the lower lobes bilaterally. The procedure was limited due to the patient having desaturation and cough and episodes throughout the procedure. However, I was able to suction out the majority of the large-s ized mucous plugs. No endobronchial tumors. No foreign bodies. Bronchoscope was removed and the patient was transferred back to recovery in stable condition. The lavage was obtained from the bronchial washings will be sent for microbial cultures and analysis.
[2020-03-02] MEDS: FLUCONAZOLE 100 MG TAB PO SCH ×2 (15:31→20:47)
[2020-03-02 16:26] LABS: Glucose,Whole Blood 165 mg/dL (75-99)
[2020-03-02 16:36] LABS: Hemoglobin A1C 5.9 % (4.0-6.0)
[2020-03-02] MEDS: ATORVASTATIN 80 MG TAB PO SCH (20:47)
[2020-03-02] MEDS: traZODone HCL 100 MG TAB PO SCH (20:48)
[2020-03-02 21:06] LABS: Glucose,Whole Blood 192 mg/dL (75-99)
[2020-03-03] MEDS: methylPREDNISolone SOD SUCCI 125 MG/2 ML VIAL IV SCH ×5 (00:29→23:40)
[2020-03-03] MEDS: HYDROmorphone 0.5 MG/0.5 ML SYRINGE IVP PRN ×3 (00:50→19:39)
[2020-03-03] MEDS: guaiFENesin-DM 100-10MG/5ML 10 ML CUP PO SCH ×3 (03:59→21:06)
[2020-03-03] MEDS: HYDROcodone/APAP 5-325MG 1 EACH TAB PO PRN ×2 (06:22→23:45)
[2020-03-03 06:43] LABS: Glucose,Whole Blood 130 mg/dL (75-99)
[2020-03-03] MEDS: INSULIN ASPART (NovoLOG) 100 UNIT/ML VIAL SQ SCH ×5 (07:47→21:00)
[2020-03-03] MEDS: FORMOTEROL FUMARATE 20 MCG/2 ML NEBU INHALATION SCH ×2 (08:03→22:11)
[2020-03-03] MEDS: IPRATROPIUM-ALBUTEROL 3 ML NEB INHALATION SCH ×3 (08:03→22:11)
[2020-03-03] MEDS: BUDESONIDE 1 MG/2 ML NEBU INHALATION SCH ×2 (08:03→22:11)
[2020-03-03] MEDS: FLUCONAZOLE 100 MG TAB PO SCH ×2 (09:42→21:00)
[2020-03-03] MEDS: DOCUSATE 100 MG CAP PO SCH ×2 (09:42→21:00)
[2020-03-03] MEDS: PANTOPRAZOLE 40 MG TABLET PO SCH ×2 (09:43→13:18)
[2020-03-03] MEDS: amLODIPine 5 MG TAB PO SCH (09:43)
[2020-03-03] MEDS: BENZONATATE 100 MG CAP PO SCH ×3 (09:43→21:00)
[2020-03-03] MEDS: ASPIRIN 81 MG PO SCH (09:43)
[2020-03-03] MEDS: ENOXAPARIN 40 MG/0.4 ML SYRINGE SQ SCH (09:43)
[2020-03-03] MEDS: lisinopriL 20 MG TAB PO SCH ×2 (09:43→21:00)
[2020-03-03] MEDS: clonazePAM 0.5 MG TAB PO SCH ×3 (09:43→21:00)
[2020-03-03] MEDS: CITALOPRAM HYDROBROMIDE 20 MG TAB PO SCH (09:43)
[2020-03-03] MEDS: LEVOFLOXACIN 750 MG TAB PO SCH (09:46)
[2020-03-03 12:03] LABS: Glucose,Whole Blood 135 mg/dL (75-99)
--- NOTE | 2020-03-03 12:57 | P.PN ---
Subjective Progress Note Date: 03/03/20 Principal diagnosis: Shortness of breath This is a 44-year-old white female patient that was admitted to the hospital on February 24 through the emergency department where she presented for evaluation of shortness of breath, cough, fatigue, malaise, but no fever, chills, no co mplaints of chest pain. Patient has no history of multiple sclerosis, she is on steroids, she does have history of prior stroke, blindness, she is lifetime nonsmoker, no history of any illicit drug use. COVID 19 was ruled out per PCR. Chest x-ray showed bilateral lower lobe infiltrates greater on the left with tiny pleural effusions. In addition patient had leukocytosis, with white blood cell count of 17, progesterone level came back negative at 0.02, inflammatory markers were nonelevated, troponin was less than 0.012, urinalysis showed evidence of infection with increased white blood cells, red blood cells. Patient was started on empiric antibiotics including azithromycin and Rocephin, she is on breathing treatments, she is feeling better, she's been afebrile since admission. Leukocytosis is improving, with blood cell count is down to 12.5 on today's labs, hemoglobin is 10.9, electrolytes and renal profile are within normal limits, no fever or chills. Blood culture has shown no growth. Yesterday's chest x-ray showed no acute cardiopulmonary process. Chest CT showed mild posterior medial left lower lobe infiltrate, possibly related to atelectasis or underlying pneumonia, and some additional bibasilar streaky opacities related to atelectasis. On 03/01/2020 patient seen in follow-up on medical surgical floor, she is awake and alert, sitting up in bed, in no acute distress, she is on room air, she still has quite significant coughing spells, she states her sternum is sore from all the coughing, she remains on Tessalon pearls, will add Robitussin DM to her medical treatment, she is on Levaquin for pneumatic coverage, remains on Solu- Medrol 60 mg every 6 hours. Lung sounds are still bronchospastic, with some diffuse rhonchi, room air pulse ox is 95%, no fever or chills. Today's labs show elevated white count of 15.6, hemoglobin of 10.3, electrolyte and renal pro file are within normal limits, blood culture has has shown no growth. No hemoptysis. She remains on nebulized bronchodilators. He receiving Dilaudid for pain control chest discomfort. On 03/02/2020 patient seen in follow-up on medical surgical floor. Still bronchospastic on today's exam, still congested, but somewhat better, she is on room air, her pulse ox is 93%, she's been afebrile, breathing at rest seems to be comfortable, no acute events over night, no chest pain, no hemoptysis. Vital signs have been stable. Remains on nebulized bronchodilators, she is on Tessalon Perles, and cough syrup, cough seems to be improved on today's exam. He is on Levaquin for empiric pneumatic coverage, yesterday we increased patient's IV steroids 200 mg every 6 hours on which she remains today. She's been nothing by mouth after midnight, for bronchoscopy with BAL today On 03/03/2020 patient seen in follow-up on medical surgical floor, on today's exam she is breathing easier. She is on room air, her pulse ox is 95%, about less dyspneic and bronchospastic on today's exam, still has some scattered wheezing, yesterday we added Diflucan for evidence of yeast on the vocal cords and in the oral cavity. She's had no acute events overnight, will continue with same medical treatment, bronch lavage cultures show no growth thus far Objective - Vital Signs Vital signs: Vital Signs Temp 98.3 F 03/03/20 07:00 Pulse 84 03/03/20 11:41 Resp 18 03/03/20 09:40 BP 146/90 03/03/20 07:00 Pulse Ox 95 03/03/20 07:00 Intake & Output 03/02/20 03/03/20 03/03/20 18:59 06:59 18:59 Intake Total 250 Output Total 3 Balance 247 Intake: IV 250 Output: Stool 3 Other: Voiding Method Toilet # Voids 2 - Exam GENERAL EXAM: Alert, pleasant, 44-year-old white female, on room air, with a pulse ox of 93% comfortable in no apparent distress. HEAD: Normocephalic/atraumatic. EYES: Normal reaction of pupils, equal size. Conjunctiva pink, sclera white. NOSE: Clear with pink turbinates. THROAT: No erythema or exudates. NECK: No masses, no JVD, no thyroid enlargement, no adenopathy. CHEST: No chest wall deformity. Symmetrical expansion. LUNGS: Equal air entry with diffuse wheezes CVS: Regular rate and rhythm, normal S1 and S2, no gallops, no murmurs, no rubs ABDOMEN: Soft, nontender. No hepatosplenomegaly, normal bowel sounds, no guarding or rigidity. EXTREMITIES: No clubbing, no edema, no cyanosis, 2+ pulses and upper and lower extremities. MUSCULOSKELETAL: Muscle strength and tone normal. SPINE: No scoliosis or deformity SKIN: No rashes CENTRAL NERVOUS SYSTEM: Alert and oriented -3. No focal deficits, tone is no rmal in all 4 extremities. Patient is blind PSYCHIATRIC: Alert and oriented -3. Appropriate affect. Intact judgment and insight. - Labs CBC & Chem 7: 03/01/20 06:20 03/01/20 06:20 Labs: Abnormal Lab Results - Last 24 Hours (Table) 03/02/20 03/02/20 03/03/20 Range/Units 16:25 21:03 06:42 POC Glucose (mg/dL) 165 H 192 H 130 H (75-99) mg/dL 03/03/20 Range/Units 12:02 POC Glucose (mg/dL) 135 H (75-99) mg/dL Microbiology - Last 24 Hours (Table) 03/02/20 13:49 Gram Stain - Preliminary Lung Aspirate - Left Bronchial Washings Culture - Preliminary 03/02/20 13:49 Acid Fast Bacilli Smear - Final Lung Aspirate - Left Acid Fast Bacilli Culture - Preliminary 03/02/20 13:49 Fungal Culture - Preliminary Lung Aspirate - Left 02/25/20 12:24 Blood Culture - Final Blood No Growth after 144 hours Assessment and Plan Plan: Assessment: #1. Dyspnea related to possibility of left lower lobe pneumonia, community acquired, with bronchospasm, status post bronchoscopy with BAL on 03/02/2020, bronch lavage cultures are negative thus far, there was evidence of yeast on vocal cords, Diflucan was added #2. Possible urinary tract infection #3. History of multiple sclerosis #4. History of blindness #5. History of previous CVA #6. History of hypertension #7. History of hyperlipidemia #8. History of Donnie's angina #9. Prior history of MRSA infection Plan: Continue current antibiotics, bronchial lavage cultures have remained negative thus far, -7 stable, continue with IV steroids nebulized bronchodilators, continue with the Diflucan. Not quite back to baseline, will continue monitori ng for another 24 hours. I performed a history & physical examination of the patient and discussed their management with my nurse practitioner, Rhona Uribe. I reviewed the nurse practitioner's note and agree with the documented findings and plan of care. Lung sounds are positive for diffuse wheezes. The findings and the impression was discussed with the patient. I attest to the documentation by the nurse practitioner. Time with Patient: Less than 30
--- NOTE | 2020-03-03 13:07 | P.PN ---
Subjective 44 years old female who presents with respiratory symptoms and found to have left lower lobe pneumonia, she still have respiratory difficulty and despite being on treatment with oral Levaquin and high dose of Solu-Medrol at 100 mg every 6 hours. Also she is on baby aspirin. And she is followed closely by pulmonary service. Patient is scheduled to go for bronchoscopy today with a bronchoalveolar lavage for persistent symptoms and slow to heal. Patient at rest she looks breathing quietly and she is in room air however examination of the chest shows significant wheezing with gurgling breath sounds. She still coughing but nothing this coming up as per patient. However she denies chest pain. Influenza virus was not detected yesterday. 03/03/2020 Patient underwent therapy can do diagnostic bronchoscopy appears to have significant thrush and fungal infection of the entire throat pharynx and larynx. Patient was started on antifungal medications. He is also presently on levofloxacin. Patient is still short of breath but significantly better compared to yesterday Constitutional: Denied any fatigue denied any fever. Cardio vascular: denied any chest pain, palpitations Gastrointestinal denied any nausea vomiting Pulmonary: Feeling better than yesterday but still short of breath Neurologic denied any new focal deficits All inpatient medications were reviewed and appropriate changes in these medications as dictated in the interval history and assessment and plan. Objective - Vital Signs Vital signs: Vital Signs Temp 98.3 F 03/03/20 07:00 Pulse 84 03/03/20 11:41 Resp 18 03/03/20 09:40 BP 146/90 03/03/20 07:00 Pulse Ox 95 03/03/20 07:00 Intake & Output 03/02/20 03/03/20 03/03/20 18:59 06:59 18:59 Intake Total 250 Output Total 3 Balance 247 Intake: IV 250 Output: Stool 3 Other: Voiding Method Toilet # Voids 2 - Exam PHYSICAL EXAMINATION: GENERAL: The patient is alert and oriented x3, not in any acute distress. Well developed, well nourished. HEENT: She is legally blind No scleral icterus. No conjunctival pallor. Normocephalic, atraumatic. No pharyngeal erythema. No thyromegaly. CARDIOVASCULAR: S1 and S2 present. No murmurs, rubs, or gallops. PULMONARY: There is very minimal rhonchi bilaterally otherwise fairly good air entry into bilateral lung rodrigues ABDOMEN: Soft, nontender, nondistended, normoactive bowel sounds. No palpable organomegaly. MUSCULOSKELETAL: No joint swelling or deformity. EXTREMITIES: No cyanosis, clubbing, or pedal edema. NEUROLOGICAL: Gross neurological examination did not reveal any focal deficits. SKIN: No rashes. - Labs CBC & Chem 7: 03/01/20 06:20 03/01/20 06:20 Labs: Abnormal Lab Results - Last 24 Hours (Table) 03/02/20 03/02/20 03/03/20 Range/Units 16:25 21:03 06:42 POC Glucose (mg/dL) 165 H 192 H 130 H (75-99) mg/dL 03/03/20 Range/Units 12:02 POC Glucose (mg/dL) 135 H (75-99) mg/dL Microbiology - Last 24 Hours (Table) 03/02/20 13:49 Gram Stain - Preliminary Lung Aspirate - Left Bronchial Washings Culture - Preliminary 03/02/20 13:49 Acid Fast Bacilli Smear - Final Lung Aspirate - Left Acid Fast Bacilli Culture - Preliminary 03/02/20 13:49 Fungal Culture - Preliminary Lung Aspirate - Left 02/25/20 12:24 Blood Culture - Final Blood No Growth after 144 hours Assessment and Plan Plan: Left lower lobe pneumonia with acute tracheobronchitis, patient is found to have yeast on local card and patient is on Diflucan for that and patient is also on levofloxacin for come in today quite pneumonia patient is status post aortic and a diagnostic bronchoscopy and the patient will be continued on systemic steroids inhalational treatments History of multiple sclerosis History of previous CVA Hypertension Hyperlipidemia History of MRSA infection -Asymptomatic bacteriuria no evidence of UTI DVT prophylaxis: Subcutaneous Lovenox GI Prophylaxis: Ppi
[2020-03-03] MEDS: MAGNESIUM OXIDE 400 MG TAB PO SCH (13:18)
[2020-03-03 13:37] VITALS: BMI 30.5
[2020-03-03 16:55] LABS: Glucose,Whole Blood 155 mg/dL (75-99)
[2020-03-03 20:51] LABS: Glucose,Whole Blood 184 mg/dL (75-99)
[2020-03-03] MEDS: traZODone HCL 100 MG TAB PO SCH (21:00)
[2020-03-03] MEDS: ATORVASTATIN 80 MG TAB PO SCH (21:00)
[2020-03-04] MEDS: HYDROmorphone 0.5 MG/0.5 ML SYRINGE IVP PRN ×2 (01:21→14:53)
[2020-03-04] MEDS: methylPREDNISolone SOD SUCCI 125 MG/2 ML VIAL IV SCH ×3 (05:36→17:21)
[2020-03-04] MEDS: guaiFENesin-DM 100-10MG/5ML 10 ML CUP PO SCH ×3 (05:37→21:52)
[2020-03-04 07:39] LABS: Glucose,Whole Blood 142 mg/dL (75-99)
[2020-03-04] MEDS: FORMOTEROL FUMARATE 20 MCG/2 ML NEBU INHALATION SCH ×2 (08:21→19:33)
[2020-03-04] MEDS: BUDESONIDE 1 MG/2 ML NEBU INHALATION SCH ×2 (08:21→19:18)
[2020-03-04] MEDS: IPRATROPIUM-ALBUTEROL 3 ML NEB INHALATION SCH ×3 (08:21→19:18)
[2020-03-04 08:27] VITALS: RESP 18
[2020-03-04] MEDS: FLUCONAZOLE 100 MG TAB PO SCH ×2 (08:57→21:42)
[2020-03-04] MEDS: amLODIPine 5 MG TAB PO SCH (08:57)
[2020-03-04] MEDS: ASPIRIN 81 MG PO SCH (08:57)
[2020-03-04] MEDS: DOCUSATE 100 MG CAP PO SCH ×2 (08:57→21:42)
[2020-03-04] MEDS: INSULIN ASPART (NovoLOG) 100 UNIT/ML VIAL SQ SCH ×4 (08:57→21:43)
[2020-03-04] MEDS: PANTOPRAZOLE 40 MG TABLET PO SCH ×2 (08:57→12:21)
[2020-03-04] MEDS: CITALOPRAM HYDROBROMIDE 20 MG TAB PO SCH (08:57)
[2020-03-04] MEDS: BENZONATATE 100 MG CAP PO SCH ×3 (08:57→21:42)
[2020-03-04] MEDS: lisinopriL 20 MG TAB PO SCH ×2 (08:57→21:42)
[2020-03-04] MEDS: clonazePAM 0.5 MG TAB PO SCH ×3 (08:57→21:42)
[2020-03-04] MEDS: LEVOFLOXACIN 750 MG TAB PO SCH (08:58)
[2020-03-04] MEDS: ENOXAPARIN 40 MG/0.4 ML SYRINGE SQ SCH (08:59)
[2020-03-04] MEDS: HYDROcodone/APAP 5-325MG 1 EACH TAB PO PRN ×2 (09:08→21:42)
--- NOTE | 2020-03-04 09:52 | P.PN ---
Subjective 44 years old female who presents with respiratory symptoms and found to have left lower lobe pneumonia, she still have respiratory difficulty and despite being on treatment with oral Levaquin and high dose of Solu-Medrol at 100 mg every 6 hours. Also she is on baby aspirin. And she is followed closely by pulmonary service. Patient is scheduled to go for bronchoscopy today with a bronchoalveolar lavage for persistent symptoms and slow to heal. Patient at rest she looks breathing quietly and she is in room air however examination of the chest shows significant wheezing with gurgling breath sounds. She still coughing but nothing this coming up as per patient. However she denies chest pain. Influenza virus was not detected yesterday. 03/03/2020 Patient underwent therapy can do diagnostic bronchoscopy appears to have significant thrush and fungal infection of the entire throat pharynx and larynx. Patient was started on antifungal medications. He is also presently on levofloxacin. Patient is still short of breath but significantly better compared to yesterday 03/04/2020 Patient is doing much better today most probably will be discharged tomorrow. Constitutional: Denied any fatigue denied any fever. Cardio vascular: denied any chest pain, palpitations Gastrointestinal denied any nausea vomiting Pulmonary: Feeling better than yesterday but still short of breath Neurologic denied any new focal deficits All inpatient medications were reviewed and appropriate changes in these medications as dictated in the interval history and assessment and plan. Objective - Vital Signs Vital signs: Vital Signs Temp 98.1 F 03/04/20 07:00 Pulse 88 03/04/20 08:51 Resp 18 03/04/20 07:00 BP 115/75 03/04/20 07:00 Pulse Ox 92 L 03/04/20 07:00 Intake & Output 03/03/20 03/04/20 03/04/20 18:59 06:59 18:59 Intake Total 100 Balance 100 Weight 88.451 kg Intake: Oral 100 Other: Voiding Method Toilet # Voids 2 1 - Exam PHYSICAL EXAMINATION: GENERAL: The patient is alert and oriented x3, not in any acute distress. Well developed, well nourished. HEENT: She is legally blind No scleral icterus. No conjunctival pallor. Normocephalic, atraumatic. No pharyngeal erythema. No thyromegaly. CARDIOVASCULAR: S1 and S2 present. No murmurs, rubs, or gallops. PULMONARY: Rhonchi and wheezing improved fairly good air entry into bilateral lung rodrigues ABDOMEN: Soft, nontender, nondistended, normoactive bowel sounds. No palpable organomegaly. MUSCULOSKELETAL: No joint swelling or deformity. EXTREMITIES: No cyanosis, clubbing, or pedal edema. NEUROLOGICAL: Gross neurological examination did not reveal any focal deficits. SKIN: No rashes. - Labs CBC & Chem 7: 03/01/20 06:20 03/01/20 06:20 Labs: Abnormal Lab Results - Last 24 Hours (Table) 03/02/20 03/03/20 03/03/20 Range/Units 13:49 12:02 16:54 POC Glucose (mg/dL) 135 H 155 H (75-99) mg/dL Viral Test See Below H 03/03/20 03/04/20 Range/Units 20:45 07:06 POC Glucose (mg/dL) 184 H 142 H (75-99) mg/dL Viral Test Microbiology - Last 24 Hours (Table) 03/02/20 13:49 Gram Stain - Preliminary Lung Aspirate - Left Bronchial Washings Culture - Preliminary Assessment and Plan Plan: Left lower lobe pneumonia with acute tracheobronchitis, patient is found to have yeast on local card and patient is on Diflucan for that and patient is also on levofloxacin for come in today quite pneumonia patient is status post aortic and a diagnostic bronchoscopy and the patient will be continued on systemic steroids inhalational treatments History of multiple sclerosis History of previous CVA Hypertension Hyperlipidemia History of MRSA infection -Asymptomatic bacteriuria no evidence of UTI DVT prophylaxis: Subcutaneous Lovenox GI Prophylaxis: Ppi Possibility of discharge tomorrow
[2020-03-04 11:29] LABS: Glucose,Whole Blood 130 mg/dL (75-99)
[2020-03-04] MEDS: MAGNESIUM OXIDE 400 MG TAB PO SCH (12:21)
--- NOTE | 2020-03-04 12:57 | P.PN ---
Subjective Progress Note Date: 03/04/20 Principal diagnosis: Shortness of breath This is a 44-year-old white female patient that was admitted to the hospital on February 24 through the emergency department where she presented for evaluation of shortness of breath, cough, fatigue, malaise, but no fever, chills, no co mplaints of chest pain. Patient has no history of multiple sclerosis, she is on steroids, she does have history of prior stroke, blindness, she is lifetime nonsmoker, no history of any illicit drug use. COVID 19 was ruled out per PCR. Chest x-ray showed bilateral lower lobe infiltrates greater on the left with tiny pleural effusions. In addition patient had leukocytosis, with white blood cell count of 17, progesterone level came back negative at 0.02, inflammatory markers were nonelevated, troponin was less than 0.012, urinalysis showed evidence of infection with increased white blood cells, red blood cells. Patient was started on empiric antibiotics including azithromycin and Rocephin, she is on breathing treatments, she is feeling better, she's been afebrile since admission. Leukocytosis is improving, with blood cell count is down to 12.5 on today's labs, hemoglobin is 10.9, electrolytes and renal profile are within normal limits, no fever or chills. Blood culture has shown no growth. Yesterday's chest x-ray showed no acute cardiopulmonary process. Chest CT showed mild posterior medial left lower lobe infiltrate, possibly related to atelectasis or underlying pneumonia, and some additional bibasilar streaky opacities related to atelectasis. On 03/01/2020 patient seen in follow-up on medical surgical floor, she is awake and alert, sitting up in bed, in no acute distress, she is on room air, she still has quite significant coughing spells, she states her sternum is sore from all the coughing, she remains on Tessalon pearls, will add Robitussin DM to her medical treatment, she is on Levaquin for pneumatic coverage, remains on Solu- Medrol 60 mg every 6 hours. Lung sounds are still bronchospastic, with some diffuse rhonchi, room air pulse ox is 95%, no fever or chills. Today's labs show elevated white count of 15.6, hemoglobin of 10.3, electrolyte and renal pro file are within normal limits, blood culture has has shown no growth. No hemoptysis. She remains on nebulized bronchodilators. He receiving Dilaudid for pain control chest discomfort. On 03/02/2020 patient seen in follow-up on medical surgical floor. Still bronchospastic on today's exam, still congested, but somewhat better, she is on room air, her pulse ox is 93%, she's been afebrile, breathing at rest seems to be comfortable, no acute events over night, no chest pain, no hemoptysis. Vital signs have been stable. Remains on nebulized bronchodilators, she is on Tessalon Perles, and cough syrup, cough seems to be improved on today's exam. He is on Levaquin for empiric pneumatic coverage, yesterday we increased patient's IV steroids 200 mg every 6 hours on which she remains today. She's been nothing by mouth after midnight, for bronchoscopy with BAL today On 03/03/2020 patient seen in follow-up on medical surgical floor, on today's exam she is breathing easier. She is on room air, her pulse ox is 95%, about less dyspneic and bronchospastic on today's exam, still has some scattered wheezing, yesterday we added Diflucan for evidence of yeast on the vocal cords and in the oral cavity. She's had no acute events overnight, will continue with same medical treatment, bronch lavage cultures show no growth thus far On 03/04/2020 patient seen in follow-up on general medical surgical floor, she is doing better, breathing easier, still some tightness and wheezing, but no ac iliamna events overnight, room air pulse ox is 92%, hemodynamically stable, no fever or chills. Bronchial lavage cultures showed Mirna albicans, patient remains on oral Diflucan, and patient is on oral Levaquin, she is on breathing treatments and high-dose IV steroids at 100 mg every 6 hours, she is improving, not quite back to baseline. Will likely need another 24 hours of inpatient treatment Objective - Vital Signs Vital signs: Vital Signs Temp 98.1 F 03/04/20 07:00 Pulse 112 H 03/04/20 12:10 Resp 18 03/04/20 07:00 BP 115/75 03/04/20 07:00 Pulse Ox 92 L 03/04/20 07:00 Intake & Output 03/03/20 03/04/20 03/04/20 18:59 06:59 18:59 Intake Total 100 Balance 100 Weight 88.451 kg Intake: Oral 100 Other: Voiding Method Toilet Toilet # Voids 2 1 - Exam GENERAL EXAM: Alert, pleasant, 44-year-old white female, on room air, with a pulse ox of 93% comfortable in no apparent distress. HEAD: Normocephalic/atraumatic. EYES: Normal reaction of pupils, equal size. Conjunctiva pink, sclera white. NOSE: Clear with pink turbinates. THROAT: No erythema or exudates. NECK: No masses, no JVD, no thyroid enlargement, no adenopathy. CHEST: No chest wall deformity. Symmetrical expansion. LUNGS: Equal air entry with diffuse wheezes CVS: Regular rate and rhythm, normal S1 and S2, no gallops, no murmurs, no rubs ABDOMEN: Soft, nontender. No hepatosplenomegaly, normal bowel sounds, no guarding or rigidity. EXTREMITIES: No clubbing, no edema, no cyanosis, 2+ pulses and upper and lower extremities. MUSCULOSKELETAL: Muscle strength and tone normal. SPINE: No scoliosis or deformity SKIN: No rashes CENTRAL NERVOUS SYSTEM: Alert and oriented -3. No focal deficits, tone is normal in all 4 extremities. Patient is blind PSYCHIATRIC: Alert and oriented -3. Appropriate affect. Intact judgment and insight. - Labs CBC & Chem 7: 03/01/20 06:20 03/01/20 06:20 Labs: Abnormal Lab Results - Last 24 Hours (Table) 03/02/20 03/03/20 03/03/20 Range/Units 13:49 16:54 20:45 POC Glucose (mg/dL) 155 H 184 H (75-99) mg/dL Viral Test See Below H 03/04/20 03/04/20 Range/Units 07:06 11:26 POC Glucose (mg/dL) 142 H 130 H (75-99) mg/dL Viral Test Microbiology - Last 24 Hours (Table) 03/02/20 13:49 Gram Stain - Preliminary Lung Aspirate - Left Bronchial Washings Culture - Preliminary Mirna albicans Assessment and Plan Plan: Assessment: #1. Dyspnea related to possibility of left lower lobe pneumonia, community acquired, with bronchospasm, status post bronchoscopy with BAL on 03/02/2020, bronch lavage cultures are negative thus far, there was evidence of yeast on vocal cords, Diflucan was added #2. Possible urinary tract infection #3. History of multiple sclerosis #4. History of blindness #5. History of previous CVA #6. History of hypertension #7. History of hyperlipidemia #8. History of Donnie's angina #9. Prior history of MRSA infection Plan: Continue current medical treatment, continue current dose of IV steroids, same antibiotics and Diflucan. Patient is improving, will need another 24 hours of inpatient treatment, not quite back to baseline, will monitor for another 24 hours. I performed a history & physical examination of the patient and discussed their management with my nurse practitioner, Rhona Uribe. I reviewed the nurse practitioner's note and agree with the documented findings and plan of care. Lung sounds are positive for diffuse wheezes. The findings and the impression was discussed with the patient. I attest to the documentation by the nurse practitioner. Time with Patient: Less than 30
[2020-03-04 17:20] LABS: Glucose,Whole Blood 177 mg/dL (75-99)
[2020-03-04 20:39] LABS: Glucose,Whole Blood 144 mg/dL (75-99)
[2020-03-04] MEDS: traZODone HCL 100 MG TAB PO SCH (21:42)
[2020-03-04] MEDS: ATORVASTATIN 80 MG TAB PO SCH (21:42)
[2020-03-05] MEDS: methylPREDNISolone SOD SUCCI 125 MG/2 ML VIAL IV SCH ×2 (00:04→11:50)
[2020-03-05] MEDS: HYDROmorphone 0.5 MG/0.5 ML SYRINGE IVP PRN ×3 (00:05→12:32)
[2020-03-05 02:43] VITALS: TEMP 98.1
[2020-03-05] MEDS: guaiFENesin-DM 100-10MG/5ML 10 ML CUP PO SCH ×2 (03:43→11:47)
[2020-03-05] MEDS: IPRATROPIUM-ALBUTEROL 3 ML NEB INHALATION SCH ×2 (07:25→11:19)
[2020-03-05] MEDS: BUDESONIDE 1 MG/2 ML NEBU INHALATION SCH (07:25)
[2020-03-05] MEDS: FORMOTEROL FUMARATE 20 MCG/2 ML NEBU INHALATION SCH (07:25)
[2020-03-05 07:40] LABS: Glucose,Whole Blood 134 mg/dL (75-99)
[2020-03-05 07:58] VITALS: BP 136/85
[2020-03-05] MEDS: amLODIPine 5 MG TAB PO SCH (08:42)
[2020-03-05] MEDS: FLUCONAZOLE 100 MG TAB PO SCH (08:42)
[2020-03-05] MEDS: ENOXAPARIN 40 MG/0.4 ML SYRINGE SQ SCH (08:42)
[2020-03-05] MEDS: DOCUSATE 100 MG CAP PO SCH (08:42)
[2020-03-05] MEDS: INSULIN ASPART (NovoLOG) 100 UNIT/ML VIAL SQ SCH ×2 (08:42→12:29)
[2020-03-05] MEDS: LEVOFLOXACIN 750 MG TAB PO SCH (08:43)
[2020-03-05] MEDS: PANTOPRAZOLE 40 MG TABLET PO SCH ×2 (08:43→11:47)
[2020-03-05] MEDS: CITALOPRAM HYDROBROMIDE 20 MG TAB PO SCH (08:43)
[2020-03-05] MEDS: lisinopriL 20 MG TAB PO SCH (08:43)
[2020-03-05] MEDS: ASPIRIN 81 MG PO SCH (08:43)
[2020-03-05] MEDS: clonazePAM 0.5 MG TAB PO SCH (08:43)
[2020-03-05] MEDS: BENZONATATE 100 MG CAP PO SCH ×2 (08:43→15:42)
[2020-03-05] MEDS: HYDROcodone/APAP 5-325MG 1 EACH TAB PO PRN ×2 (08:50→15:42)
[2020-03-05 11:26] LABS: Glucose,Whole Blood 201 mg/dL (75-99)
[2020-03-05 11:30] VITALS: PULSE 104
[2020-03-05] MEDS: MAGNESIUM OXIDE 400 MG TAB PO SCH (11:47)
--- NOTE | 2020-03-05 13:13 | P.PN ---
Subjective Progress Note Date: 03/05/20 Principal diagnosis: Shortness of breath This is a 44-year-old white female patient that was admitted to the hospital on February 24 through the emergency department where she presented for evaluation of shortness of breath, cough, fatigue, malaise, but no fever, chills, no co mplaints of chest pain. Patient has no history of multiple sclerosis, she is on steroids, she does have history of prior stroke, blindness, she is lifetime nonsmoker, no history of any illicit drug use. COVID 19 was ruled out per PCR. Chest x-ray showed bilateral lower lobe infiltrates greater on the left with tiny pleural effusions. In addition patient had leukocytosis, with white blood cell count of 17, progesterone level came back negative at 0.02, inflammatory markers were nonelevated, troponin was less than 0.012, urinalysis showed evidence of infection with increased white blood cells, red blood cells. Patient was started on empiric antibiotics including azithromycin and Rocephin, she is on breathing treatments, she is feeling better, she's been afebrile since admission. Leukocytosis is improving, with blood cell count is down to 12.5 on today's labs, hemoglobin is 10.9, electrolytes and renal profile are within normal limits, no fever or chills. Blood culture has shown no growth. Yesterday's chest x-ray showed no acute cardiopulmonary process. Chest CT showed mild posterior medial left lower lobe infiltrate, possibly related to atelectasis or underlying pneumonia, and some additional bibasilar streaky opacities related to atelectasis. On 03/01/2020 patient seen in follow-up on medical surgical floor, she is awake and alert, sitting up in bed, in no acute distress, she is on room air, she still has quite significant coughing spells, she states her sternum is sore from all the coughing, she remains on Tessalon pearls, will add Robitussin DM to her medical treatment, she is on Levaquin for pneumatic coverage, remains on Solu- Medrol 60 mg every 6 hours. Lung sounds are still bronchospastic, with some diffuse rhonchi, room air pulse ox is 95%, no fever or chills. Today's labs show elevated white count of 15.6, hemoglobin of 10.3, electrolyte and renal pro file are within normal limits, blood culture has has shown no growth. No hemoptysis. She remains on nebulized bronchodilators. He receiving Dilaudid for pain control chest discomfort. On 03/02/2020 patient seen in follow-up on medical surgical floor. Still bronchospastic on today's exam, still congested, but somewhat better, she is on room air, her pulse ox is 93%, she's been afebrile, breathing at rest seems to be comfortable, no acute events over night, no chest pain, no hemoptysis. Vital signs have been stable. Remains on nebulized bronchodilators, she is on Tessalon Perles, and cough syrup, cough seems to be improved on today's exam. He is on Levaquin for empiric pneumatic coverage, yesterday we increased patient's IV steroids 200 mg every 6 hours on which she remains today. She's been nothing by mouth after midnight, for bronchoscopy with BAL today On 03/03/2020 patient seen in follow-up on medical surgical floor, on today's exam she is breathing easier. She is on room air, her pulse ox is 95%, about less dyspneic and bronchospastic on today's exam, still has some scattered wheezing, yesterday we added Diflucan for evidence of yeast on the vocal cords and in the oral cavity. She's had no acute events overnight, will continue with same medical treatment, bronch lavage cultures show no growth thus far On 03/04/2020 patient seen in follow-up on general medical surgical floor, she is doing better, breathing easier, still some tightness and wheezing, but no ac seminole events overnight, room air pulse ox is 92%, hemodynamically stable, no fever or chills. Bronchial lavage cultures showed Mirna albicans, patient remains on oral Diflucan, and patient is on oral Levaquin, she is on breathing treatments and high-dose IV steroids at 100 mg every 6 hours, she is improving, not quite back to baseline. Will likely need another 24 hours of inpatient treatment. On 03/05/2020 patient seen in follow-up on general medical surgical floor. Patient continues to improve, less dyspneic and bronchospastic, bronch cultures only showed Mirna albicans, cytology negative. Room air pulse ox is 92%. Patient has received 6 days of oral Levaquin, and Diflucan. We will transition her over to oral prednisone. Objective - Vital Signs Vital signs: Vital Signs Temp 98.1 F 03/05/20 07:00 Pulse 104 H 03/05/20 11:30 Resp 18 03/05/20 07:00 BP 136/85 03/05/20 07:00 Pulse Ox 95 03/05/20 07:00 Intake & Output 03/04/20 03/05/20 03/05/20 18:59 06:59 18:59 Intake Total 200 Balance 200 Intake: Oral 200 Other: Voiding Method Toilet Toilet # Voids 1 1 - Exam GENERAL EXAM: Alert, pleasant, 44-year-old white female, on room air, with a pulse ox of 92-94% comfortable in no apparent distress. HEAD: Normocephalic/atraumatic. EYES: Normal reaction of pupils, equal size. Conjunctiva pink, sclera white. NOSE: Clear with pink turbinates. THROAT: No erythema or exudates. NECK: No masses, no JVD, no thyroid enlargement, no adenopathy. CHEST: No chest wall deformity. Symmetrical expansion. LUNGS: Equal air entry with diminished breath sounds CVS: Regular rate and rhythm, normal S1 and S2, no gallops, no murmurs, no rubs ABDOMEN: Soft, nontender. No hepatosplenomegaly, normal bowel sounds, no guarding or rigidity. EXTREMITIES: No clubbing, no edema, no cyanosis, 2+ pulses and upper and lower extremities. MUSCULOSKELETAL: Muscle strength and tone normal. SPINE: No scoliosis or deformity SKIN: No rashes CENTRAL NERVOUS SYSTEM: Alert and oriented -3. No focal deficits, tone is normal in all 4 extremities. Patient is blind PSYCHIATRIC: Alert and oriented -3. Appropriate affect. Intact judgment and insight. - Labs CBC & Chem 7: 03/01/20 06:20 03/01/20 06:20 Labs: Abnormal Lab Results - Last 24 Hours (Table) 03/04/20 03/04/20 03/05/20 Range/Units 17:09 20:22 07:04 POC Glucose (mg/dL) 177 H 144 H 134 H (75-99) mg/dL 03/05/20 Range/Units 11:16 POC Glucose (mg/dL) 201 H (75-99) mg/dL Microbiology - Last 24 Hours (Table) 03/02/20 13:49 Gram Stain - Preliminary Lung Aspirate - Left Bronchial Washings Culture - Preliminary Mirna albicans Assessment and Plan Plan: Assessment: #1. Dyspnea related to possibility of left lower lobe pneumonia, community acquired, with bronchospasm, status post bronchoscopy with BAL on 03/02/2020, bronch lavage cultures are negative thus far, there was evidence of yeast on vocal cords, Diflucan was added #2. Possible urinary tract infection #3. History of multiple sclerosis #4. History of blindness #5. History of previous CVA #6. History of hypertension #7. History of hyperlipidemia #8. History of Donnie's angina #9. Prior history of MRSA infection Plan: Patient is improving, can transition her over to oral steroids, 60 mg of prednisone daily, bronchial lavage cultures have been negative, continue oral Diflucan, patient is stable for discharge home today from pulmonary perspective, she will need to finish patient course of oral Diflucan, she will need to be seen in follow-up in the office with Dr. Day with Dr. Cam. I performed a history & physical examination of the patient and discussed their management with my nurse practitioner, Rhona Uribe. I reviewed the nurse practitioner's note and agree with the documented findings and plan of care. Lung sounds are positive for diffuse wheezes. The findings and the impression was discussed with the patient. I attest to the documentation by the nurse practitioner. Time with Patient: Less than 30
--- NOTE | 2020-03-05 14:14 | P.DS ---
Providers Date of admission: 02/25/20 13:24 Attending physician: Maame Barr Consults: 02/25/20 14:23 Consult Physician Stat Consulting Provider: [place] Reason/Comments: bilateral pneumonia Do you want consulting provider notified?: Yes Primary care physician: Luly Caldwell Hospital Course: 44 years old female who presents with respiratory symptoms and found to have left lower lobe pneumonia, she still have respiratory difficulty and despite being on treatment with oral Levaquin and high dose of Solu-Medrol at 100 mg every 6 hours. Also she is on baby aspirin. And she is followed closely by pulmonary service. Patient is scheduled to go for bronchoscopy today with a bronchoalveolar lavage for persistent symptoms and slow to heal. Patient at rest she looks breathing quietly and she is in room air however examination of the chest shows significant wheezing with gurgling breath sounds. She still coughing but nothing this coming up as per patient. However she denies chest pain. Influenza test negative. Head bronchoscopy showing significant thrush and fungal infection ventricular throat pharynx larynx, on antifungals Diflucan. Patient appeared to be improving on , however stated that she did not have a ride home and wanted to another night. Patient initially stated that she did not have a ride home again today, however patient's sister is at bedside and able to provide her further. Potential risks of further inpatient stay including nosocomial infection was discussed with patient. Constitutional: Denied any fatigue denied any fever. Cardio vascular: denied any chest pain, palpitations Gastrointestinal denied any nausea vomiting Pulmonary: Denies shortness of breath Neurologic denied any new focal deficits GENERAL: The patient is alert and oriented x3, notin any acute distress. Well developed, well nourished. HEENT: She is legally blind No scleral icterus. No conjunctival pallor. Normocephalic, atraumatic. No pharyngeal erythema. No thyromegaly. CARDIOVASCULAR: S1 and S2 present. No murmurs, rubs, or gallops. PULMONARY: LS clear to auscultation bilaterally fairly good air entry into bilateral lung rodrigues ABDOMEN: Soft, nontender, nondistended, normoactive bowel sounds. No palpable organomegaly. MUSCULOSKELETAL: No joint swelling or deformity. EXTREMITIES: No cyanosis, clubbing, or pedal edema. NEUROLOGICAL: Gross neurological examination did not reveal any focal deficits. SKIN: No rashes. Assessment: -Lower lobe pneumonia acute tracheobronchitis and bronchospasm, with extensive yeast throughout pharynx and oral cavity, status post bronchoscopy. On antifungal Diflucan, and received antimicrobial therapy with Levaquin she'll be discontinued. She will continue on 14 day course of oral Diflucan upon discharge along with prednisone taper starting at 60 mg for 4 days. Continue inhaled bronchodilators. -History of multiple sclerosis -History of previous CVA, nonfocal -Hypertension -Hyperlipidemia -History of MRSA infection -Asymptomatic bacteriuria no evidence of UTI - Patient will be discharged home today after mentioned treatment regimen. Patient's sister agreed to drive patient home. Patient initially did not wish to be discharged home today, however risks of staying in hospital longer when not necessary such as potential nosocomial infections were explained to patient at bedside. Patient Condition at Discharge: Stable Plan - Discharge Summary Discharge Rx Participant: No New Discharge Prescriptions: New Ipratropium-Albuterol Nebulize [Duoneb 0.5 mg-3 mg/3 ml Soln] 3 ml INHALATION QID 30 Days #6 box predniSONE 10 mg PO DAILY #100 tab Fluconazole [Diflucan] 100 mg PO DAILY #14 tablet Benzonatate [Tessalon Perles] 200 mg PO TID #30 cap Continue traZODone HCL [Desyrel] 100 mg PO HS clonazePAM [KlonoPIN] 0.5 mg PO BID Atorvastatin [Lipitor] 80 mg PO HS amLODIPine [Norvasc] 5 mg PO DAILY Magnesium Gluconate [Magonate] 500 mg PO DAILY@1200 Pantoprazole Sodium [Protonix] 40 mg PO BID@0800,1200 Citalopram Hydrobromide [CeleXA] 20 mg PO DAILY lisinopriL [Zestril] 20 mg PO BID Aspirin EC [Ecotrin Low Dose] 81 mg PO DAILY Solu Medrol 1 dose IV DIRECTED Ocrevos 1 dose IV Q180D Discharge Medication List Aspirin EC [Ecotrin Low Dose] 81 mg PO DAILY 02/25/20 [History] Atorvastatin [Lipitor] 80 mg PO HS 02/25/20 [History] Citalopram Hydrobromide [CeleXA] 20 mg PO DAILY 02/25/20 [History] Magnesium Gluconate [Magonate] 500 mg PO DAILY@1200 02/25/20 [History] Ocrevos 1 dose IV Q180D 02/25/20 [History] Pantoprazole Sodium [Protonix] 40 mg PO BID@0800,1200 02/25/20 [History] Solu Medrol 1 dose IV DIRECTED 02/25/20 [History] amLODIPine [Norvasc] 5 mg PO DAILY 02/25/20 [History] clonazePAM [KlonoPIN] 0.5 mg PO BID 02/25/20 [History] lisinopriL [Zestril] 20 mg PO BID 02/25/20 [History] traZODone HCL [Desyrel] 100 mg PO HS 02/25/20 [History] Ipratropium-Albuterol Nebulize [Duoneb 0.5 mg-3 mg/3 ml Soln] 3 ml INHALATION QID 30 Days #6 box 03/04/20 [Rx] Benzonatate [Tessalon Perles] 200 mg PO TID #30 cap 03/05/20 [Rx] Fluconazole [Diflucan] 100 mg PO DAILY #14 tablet 03/05/20 [Rx] predniSONE 10 mg PO DAILY #100 tab 03/05/20 [Rx] Follow up Appointment(s)/Referral(s): [facility],Equipment [NON-STAFF] - As Needed ([facility] will deliver a nebulizer to the patient's bedside before discharge. Please contact them with questions regarding your nebulizer. ) Luly Caldwell DO [Primary Care Provider] - 03/09/20 11:30 am Alka Cam NPC [Nurse Practitioner] - 03/17/20 3:15 pm [facility], [NON-STAFF] - Patient Instructions/Handouts: Viral Pneumonia (ED), Viral Pneumonia (DC) Discharge Disposition: HOME WITH HOME HEALTH SERVICES
[2020-03-05] MEDS ORDERED: predniSONE 20 MG TAB PO STA (15:28)
[2020-03-06] MEDS ORDERED: predniSONE 20 MG TAB PO SCH (09:00)
== END 2020-03-05 16:52 | disposition home health service (06) | DRG 194 ==
LOC: EC 11:17 → 4SSUR 13:24
PROVIDERS: ADMIT Hospitalist; ATTEND Hospitalist
PROC: 0BC18ZZ Extirpation of Matter from Trachea, Via Natural or Artificial Opening Endoscopic (ICD-10-PCS; 2020-03-02)
PROC: 0BC78ZZ Extirpation of Matter from Left Main Bronchus, Via Natural or Artificial Opening Endoscopic (ICD-10-PCS; 2020-03-02)
PROC: 0BC38ZZ Extirpation of Matter from Right Main Bronchus, Via Natural or Artificial Opening Endoscopic (ICD-10-PCS; 2020-03-02)
PROC: 0B9G8ZX Drainage of Left Upper Lung Lobe, Via Natural or Artificial Opening Endoscopic, Diagnostic (ICD-10-PCS; principal; 2020-03-02 13:35)
DX: J18.9 Pneumonia, unspecified organism (principal); J44.1 Chronic obstructive pulmonary disease with (acute) exacerbation; J44.0 Chronic obstructive pulmonary disease with (acute) lower respiratory infection; B37.0 Candidal stomatitis; E87.1 Hypo-osmolality and hyponatremia; N39.0 Urinary tract infection, site not specified; Z20.828 Contact with and (suspected) exposure to other viral communicable diseases; J98.09 Other diseases of bronchus, not elsewhere classified; G35 Multiple sclerosis; J20.9 Acute bronchitis, unspecified; R09.02 Hypoxemia; E66.9 Obesity, unspecified; H54.8 Legal blindness, as defined in USA; E78.5 Hyperlipidemia, unspecified; I10 Essential (primary) hypertension; G47.33 Obstructive sleep apnea (adult) (pediatric); Z71.3 Dietary counseling and surveillance; Z68.30 Body mass index [BMI] 30.0-30.9, adult; Z79.82 Long term (current) use of aspirin; Z79.899 Other long term (current) drug therapy; Z86.73 Personal history of transient ischemic attack (TIA), and cerebral infarction without residual deficits; Z87.891 Personal history of nicotine dependence; Z86.14 Personal history of Methicillin resistant Staphylococcus aureus infection; Z82.49 Family history of ischemic heart disease and other diseases of the circulatory system; Z80.0 Family history of malignant neoplasm of digestive organs; Z83.2 Family history of diseases of the blood and blood-forming organs and certain disorders involving the immune mechanism
CPT/HCPCS: 31624; 36415; 71045; 71046; 71250; 80048; 80053; 81001; 81003; 83036; 83605; 83615; 83735; 83880; 84145; 84484; 84703; 85025; 85379; 85610; 85652; 85730; 86140; 86738; 87040; 87070; 87102; 87116; 87205; 87206; 87252; 87449; 87496; 87498; 87502; 87529; 87634; 87798; 88108; 88305; 93005; 94640; 94760; 96361; 96365; 96375; 99285

== ENCOUNTER 2020-03-20 22:22 | Emergency (ER) | payer BC ==
[2020-03-20 22:40] LABS: Glucose,Whole Blood 125 mg/dL (75-99)
[2020-03-20 23:03] LABS: Anisocytosis Slight; Basophils # (A) 0.2 k/uL (0-0.2); Basophils % (A) 3 %; Eosinophils # (A) 0.1 k/uL (0-0.7); Eosinophils % (A) 2 %; HCT 39.5 % (34.0-46.0); HGB 12.7 gm/dL (11.4-16.0); Lymphocytes # (A) 2.2 k/uL (1.0-4.8); Lymphocytes % (A) 31 %; MCH 27.7 pg (25.0-35.0); MCHC 32.1 g/dL (31.0-37.0); MCV 86.3 fL (80.0-100.0); Mean Platelet Volume 7.1; Monocytes # (A) 0.4 k/uL (0-1.0); Monocytes % (A) 6 %; Neutrophils # (A) 4.1 k/uL (1.3-7.7); Neutrophils % (A) 57 %; Platelet Count 274 k/uL (150-450); RBC 4.58 m/uL (3.80-5.40); RDW 17.4 % (11.5-15.5); WBC 7.2 k/uL (3.8-10.6)
[2020-03-20 23:11] LABS: African American GFR (CKD) >90 (>60 ml/min/1.73 sqM); Anion Gap 10 mmol/L; Blood Urea Nitrogen 21 mg/dL (7-17); Calcium 9.8 mg/dL (8.4-10.2); Carbon Dioxide 22 mmol/L (22-30); Chloride 101 mmol/L (98-107); Glucose 116 mg/dL (74-99); Non-African American GFR(CKD) 84 (>60 ml/min/1.73 sqM); Potassium 4.3 mmol/L (3.5-5.1); Sodium 133 mmol/L (137-145)
--- NOTE | 2020-03-20 23:19 | ED ---
General Adult HPI - General Chief complaint: Neuro Symptoms/Deficit Stated complaint: headache,hypertension Time Seen by Provider: 03/20/20 22:23 Source: patient Mode of arrival: ambulatory Limitations: no limitations - History of Present Illness Initial comments: 's patient is a 44-year-old woman with history of multiple sclerosis who presents to be evaluated for feeling weak throughout all 4 extremities. Patient states this is been going on all day becoming worse tonight. When the patient was not able to move she phoned EMS. Patient states she is also having a little bit of diffuse headache. Patient has not noted any new visual symptoms though states she is legally blind. No change in speech or swallowing. She has not noted fever or chills. No neck pain or stiffness. -: days(s) Location: left, right, upper extremity, lower extremity Consistency: constant Improves with: none Worsens with: none Associated Symptoms: headaches Treatments Prior to Arrival: none - Related Data Home Medications Medication Instructions Recorded Confirmed Aspirin EC [Ecotrin Low Dose] 81 mg PO DAILY 02/25/20 03/20/20 Atorvastatin [Lipitor] 80 mg PO HS 02/25/20 03/20/20 Citalopram Hydrobromide [CeleXA] 20 mg PO DAILY 02/25/20 03/20/20 Magnesium Gluconate [Magonate] 500 mg PO DAILY@1200 02/25/20 03/20/20 Ocrevos 1 dose IV Q180D 02/25/20 03/20/20 Pantoprazole Sodium [Protonix] 40 mg PO BID@0800,1200 02/25/20 03/20/20 Solu Medrol 1 dose IV DIRECTED 02/25/20 03/20/20 amLODIPine [Norvasc] 5 mg PO DAILY 02/25/20 03/20/20 clonazePAM [KlonoPIN] 0.5 mg PO BID 02/25/20 03/20/20 lisinopriL [Zestril] 20 mg PO BID 02/25/20 03/20/20 traZODone HCL [Desyrel] 100 mg PO HS 02/25/20 03/20/20 Benzonatate [Tessalon Perles] 200 mg PO TID PRN 03/20/20 03/20/20 Dismuzyme 1 tab PO TID 03/20/20 03/20/20 Ferrous Sulfate [Feosol] 325 mg PO Q48H 03/20/20 03/20/20 Fexofenadine HCl [Jesenia Allergy] 180 mg PO DAILY 03/20/20 03/20/20 Histoplex 1 tab PO BID 03/20/20 03/20/20 Ipratropium-Albuterol Nebulize 3 ml INHALATION RT-QID 03/20/20 03/20/20 [Duoneb 0.5 mg-3 mg/3 ml Soln] L.acidoph,Paracasei, B.lactis 1 cap PO BID 03/20/20 03/20/20 [Probiotic] Pro Dha Eye 1 tab PO BID 03/20/20 03/20/20 Sennosides [Senna] 8.6 mg PO DAILY 03/20/20 03/20/20 predniSONE See Taper PO DAILY 03/20/20 03/20/20 Previous Rx's Medication Instructions Recorded Fluconazole [Diflucan] 100 mg PO DAILY #14 tablet 03/05/20 Allergies Allergy/AdvReac Type Severity Reaction Status Date / Time No Known Allergies Allergy Verified 03/20/20 23:40 Review of Systems ROS Statement: Those systems with pertinent positive or pertinent negative responses have been documented in the HPI. ROS Other: All systems not noted in ROS Statement are negative. Constitutional: Denies: fever, chills Eyes: Denies: eye pain, vision change ENT: Denies: hearing loss Respiratory: Denies: cough, dyspnea Cardiovascular: Denies: chest pain, palpitations, edema, syncope Gastrointestinal: Denies: abdominal pain, vomiting, diarrhea Genitourinary: Denies: dysuria, hematuria Musculoskeletal: Denies: back pain Skin: Denies: rash Neurological: Reports: headache, weakness, numbness. Denies: paresthesias, confusion, abnormal gait, vertigo Past Medical History Past Medical History: CVA/TIA, Musculoskeletal Disorder, Neurologic Disorder Additional Past Medical History / Comment(s): arden GRAHAM angina 06/2016. 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 History of Any Multi-Drug Resistant Organisms: MRSA Date of last positivie culture/infection: 2010 MDRO Source:: right leg Past Surgical History: No Surgical Hx Reported Additional Past Surgical History / Comment(s): Dental surgery in June 2016 Past Anesthesia/Blood Transfusion Reactions: No Reported Reaction Past Psychological History: No Psychological Hx Reported Smoking Status: Former smoker Past Alcohol Use History: Rare Past Drug Use History: None Reported - Past Family History Mother Family Medical History: Hypertension Additional Family Medical History / Comment(s): Heart stents Father Family Medical History: Cancer, Hypertension Additional Family Medical History / Comment(s): esophageal and rectal CA Brother(s) Additional Family Medical History / Comment(s): 2 brothers 1 has MS and 1 has sarcoidosis Sister(s) Additional Family Medical History / Comment(s): Lupus, MS General Exam Limitations: no limitations General appearance: alert, in no apparent distress Head exam: Present: atraumatic, normocephalic Eye exam: Present: normal appearance. Absent: scleral icterus, conjunctival injection ENT exam: Present: normal oropharynx Neck exam: Present: normal inspection Respiratory exam: Present: normal lung sounds bilaterally. Absent: respiratory distress, wheezes, rales, rhonchi, stridor Cardiovascular Exam: Present: regular rate, normal rhythm, normal heart sounds. Absent: systolic murmur, diastolic murmur, rubs, gallop GI/Abdominal exam: Present: soft. Absent: distended, tenderness, guarding, rebound, rigid, mass Extremities exam: Present: normal inspection, normal capillary refill. Absent: pedal edema, calf tenderness Back exam: Present: normal inspection. Absent: CVA tenderness (R), CVA tenderness (L) Neurological exam: Present: alert, oriented X3, CN II-XII intact, reflexes normal, other (The patient is not able to comply with the motor exam.) Skin exam: Present: warm, dry, intact, normal color. Absent: rash Course Vital Signs 03/20/20 03/20/20 03/21/20 22:27 23:55 01:00 Temperature 98.1 F Pulse Rate 115 H 103 H 99 Respiratory 20 20 19 Rate Blood Pressure 159/102 151/88 146/95 O2 Sat by Pulse 96 96 95 Oximetry 03/21/20 03/21/20 02:00 03:19 Temperature 98.2 F Pulse Rate 102 H 101 H Respiratory 20 20 Rate Blood Pressure 139/92 141/91 O2 Sat by Pulse 95 95 Oximetry EKG Findings - EKG Comments: EKG Findings:: Possible old anterior infarct - EKG Results: EKG: interpreted by ERMD, sinus rhythm, normal axis, normal ST/T EKG shows: tachycardia (Rate 101 bpm) Medical Decision Making - Medical Decision Making Patient's 44-year-old woman with history of MS who states she is having symptoms similar to previous exacerbation. The patient states that her neurologist is Dr. Fried who works out of [facility], and she does request transfer there for continuity of care, as we do not have neurology coverage this weekend. - Lab Data Result diagrams: 03/20/20 22:51 03/20/20 22:51 Lab Results 03/20/20 03/20/20 03/20/20 Range/Units 22:29 22:51 22:51 WBC 7.2 (3.8-10.6) k/uL RBC 4.58 (3.80-5.40) m/uL Hgb 12.7 (11.4-16.0) gm/dL Hct 39.5 (34.0-46.0) % MCV 86.3 (80.0-100.0) fL MCH 27.7 (25.0-35.0) pg MCHC 32.1 (31.0-37.0) g/dL RDW 17.4 H (11.5-15.5) % Plt Count 274 (150-450) k/uL Neutrophils % 57 % Lymphocytes % 31 % Monocytes % 6 % Eosinophils % 2 % Basophils % 3 % Neutrophils # 4.1 (1.3-7.7) k/uL Lymphocytes # 2.2 (1.0-4.8) k/uL Monocytes # 0.4 (0-1.0) k/uL Eosinophils # 0.1 (0-0.7) k/uL Basophils # 0.2 (0-0.2) k/uL Anisocytosis Slight Sodium 133 L (137-145) mmol/L Potassium 4.3 (3.5-5.1) mmol/L Chloride 101 (98-107) mmol/L Carbon Dioxide 22 (22-30) mmol/L Anion Gap 10 mmol/L BUN 21 H (7-17) mg/dL Creatinine 0.84 (0.52-1.04) mg/dL Est GFR (CKD-EPI)AfAm >90 (>60 ml/min/1.73 sqM) Est GFR (CKD-EPI)NonAf 84 (>60 ml/min/1.73 sqM) Glucose 116 H (74-99) mg/dL POC Glucose (mg/dL) 125 H (75-99) mg/dL POC Glu Risk Mgr ID Malathi Smith Calcium 9.8 (8.4-10.2) mg/dL Troponin I (0.000-0.034) ng/mL 03/20/20 Range/Units 22:51 WBC (3.8-10.6) k/uL RBC (3.80-5.40) m/uL Hgb (11.4-16.0) gm/dL Hct (34.0-46.0) % MCV (80.0-100.0) fL MCH (25.0-35.0) pg MCHC (31.0-37.0) g/dL RDW (11.5-15.5) % Plt Count (150-450) k/uL Neutrophils % % Lymphocytes % % Monocytes % % Eosinophils % % Basophils % % Neutrophils # (1.3-7.7) k/uL Lymphocytes # (1.0-4.8) k/uL Monocytes # (0-1.0) k/uL Eosinophils # (0-0.7) k/uL Basophils # (0-0.2) k/uL Anisocytosis Sodium (137-145) mmol/L Potassium (3.5-5.1) mmol/L Chloride (98-107) mmol/L Carbon Dioxide (22-30) mmol/L Anion Gap mmol/L BUN (7-17) mg/dL Creatinine (0.52-1.04) mg/dL Est GFR (CKD-EPI)AfAm (>60 ml/min/1.73 sqM) Est GFR (CKD-EPI)NonAf (>60 ml/min/1.73 sqM) Glucose (74-99) mg/dL POC Glucose (mg/dL) (75-99) mg/dL POC Glu Risk Mgr ID Calcium (8.4-10.2) mg/dL Troponin I <0.012 (0.000-0.034) ng/mL Disposition Clinical Impression: History of multiple sclerosis Disposition: OTHER INSTITUTION NOT DEFINED Condition: Fair Is patient prescribed a controlled substance at d/c from ED?: No Referrals: Luly Caldwell DO [Primary Care Provider] - 1-2 days - Out of Hospital Transfer - Req. Specs Out of Hospital Transfer - Requested Specifics: Other Emergency Center
--- NOTE | 2020-03-20 23:22 | CT ---
EXAMINATION TYPE: CT brain wo con DATE OF EXAM: 03/20/2020 COMPARISON: 05/23/2019 HISTORY: headache CT DLP: 1113.4 mGycm Automated exposure control for dose reduction was used. Ventricles have normal size. There is no mass effect nor midline shift. There is no sign of intracran ial hemorrhage. Calvarium is intact. IMPRESSION: Negative unenhanced head CT scan.
[2020-03-20] MEDS ORDERED: lisinopriL 20 MG TAB PO STA (23:48)
[2020-03-21] MEDS ORDERED: SODIUM CHLORIDE 0.9% 500 ML 500 ML IV STA (01:23)
[2020-03-21 03:14] VITALS: RESP 20
[2020-03-21 03:32] VITALS: BP 141/91; PULSE 101; TEMP 98.2
== END 2020-03-21 02:35 | disposition other institution (70) ==
LOC: EC 22:22
DX: R51.9 Headache, unspecified (principal); Z86.69 Personal history of other diseases of the nervous system and sense organs; H54.8 Legal blindness, as defined in USA; Z79.82 Long term (current) use of aspirin; Z79.899 Other long term (current) drug therapy; Z86.73 Personal history of transient ischemic attack (TIA), and cerebral infarction without residual deficits
CPT/HCPCS: 36415; 93005; 80048; 84484; 85025; 70450; 99285; 96365; J2930

== ENCOUNTER 2022-05-05 09:47 | Emergency (ER) | payer BC ==
[2022-05-05 09:57] VITALS: BP 118/85; PULSE 116; RESP 22; TEMP 98.2
--- NOTE | 2022-05-05 10:10 | ED ---
URI HPI - General Chief Complaint: Upper Respiratory Infection Stated Complaint: covid+, SOB & headache Time Seen by Provider: 05/05/22 10:02 Source: patient, RN notes reviewed Mode of arrival: ambulatory Limitations: no limitations - History of Present Illness Initial Comments: 47-year-old female with past medical history of MS coming into the emergency department for COVID. She states her symptoms started with a cough and she has progressively gotten worse shortness of breath last night. She complains symptoms of fever, sore throat, and headache. She has not tried [id number] or Motrin and Tylenol for his symptoms . She was vaccinated against COVID-19. No other complaints at this time. - Related Data Home Medications Medication Instructions Recorded Confirmed Aspirin EC [Ecotrin Low Dose] 81 mg PO DAILY 02/25/20 03/20/20 Atorvastatin [Lipitor] 80 mg PO HS 02/25/20 03/20/20 Citalopram Hydrobromide [CeleXA] 20 mg PO DAILY 02/25/20 03/20/20 Magnesium Gluconate [Magonate] 500 mg PO DAILY@1200 02/25/20 03/20/20 Ocrevos 1 dose IV Q180D 02/25/20 03/20/20 Pantoprazole Sodium [Protonix] 40 mg PO BID@0800,1200 02/25/20 03/20/20 Solu Medrol 1 dose IV DIRECTED 02/25/20 03/20/20 amLODIPine [Norvasc] 5 mg PO DAILY 02/25/20 03/20/20 clonazePAM [KlonoPIN] 0.5 mg PO BID 02/25/20 03/20/20 lisinopriL [Zestril] 20 mg PO BID 02/25/20 03/20/20 traZODone HCL [Desyrel] 100 mg PO HS 02/25/20 03/20/20 Benzonatate [Tessalon Perles] 200 mg PO TID PRN 03/20/20 03/20/20 Dismuzyme 1 tab PO TID 03/20/20 03/20/20 Ferrous Sulfate [Feosol] 325 mg PO Q48H 03/20/20 03/20/20 Fexofenadine HCl [Jesenia Allergy] 180 mg PO DAILY 03/20/20 03/20/20 Histoplex 1 tab PO BID 03/20/20 03/20/20 Ipratropium-Albuterol Nebulize 3 ml INHALATION RT-QID 03/20/20 03/20/20 [Duoneb 0.5 mg-3 mg/3 ml Soln] L.acidoph,Paracasei, B.lactis 1 cap PO BID 03/20/20 03/20/20 [Probiotic] Pro Dha Eye 1 tab PO BID 03/20/20 03/20/20 Sennosides [Senna] 8.6 mg PO DAILY 03/20/20 03/20/20 predniSONE See Taper PO DAILY 03/20/20 03/20/20 Previous Rx's Medication Instructions Recorded Fluconazole [Diflucan] 100 mg PO DAILY #14 tablet 03/05/20 Benzonatate [Tessalon Perles] 100 mg PO TID PRN #15 capsule 05/05/22 Allergies Allergy/AdvReac Type Severity Reaction Status Date / Time No Known Allergies Allergy Verified 05/05/22 09:57 Review of Systems ROS Statement: Those systems with pertinent positive or pertinent negative responses have been documented in the HPI. ROS Other: All systems not noted in ROS Statement are negative. 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 History of Any Multi-Drug Resistant Organisms: MRSA Date of last positivie culture/infection: 2010 MDRO Source:: right leg Past Surgical History: No Surgical Hx Reported Additional Past Surgical History / Comment(s): Dental surgery in June 2016 Past Anesthesia/Blood Transfusion Reactions: No Reported Reaction Past Psychological History: No Psychological Hx Reported Smoking Status: Former smoker Past Alcohol Use History: Rare Past Drug Use History: None Reported - Past Family History Mother Family Medical History: Hypertension Additional Family Medical History / Comment(s): Heart stents Father Family Medical History: Cancer, Hypertension Additional Family Medical History / Comment(s): esophageal and rectal CA Brother(s) Additional Family Medical History / Comment(s): 2 brothers 1 has MS and 1 has sarcoidosis Sister(s) Additional Family Medical History / Comment(s): Lupus, MS General Exam Limitations: no limitations General appearance: alert, in no apparent distress Head exam: Present: atraumatic, normocephalic, normal inspection Eye exam: Present: normal appearance, PERRL, EOMI. Absent: scleral icterus, conjunctival injection, periorbital swelling ENT exam: Present: normal exam, mucous membranes moist Neck exam: Present: normal inspection. Absent: tenderness, meningismus, lymphadenopathy Respiratory exam: Present: normal lung sounds bilaterally. Absent: respiratory distress, wheezes, rales, rhonchi, stridor Cardiovascular Exam: Present: regular rate, normal rhythm, normal heart sounds. Absent: systolic murmur, diastolic murmur, rubs, gallop, clicks GI/Abdominal exam: Present: soft, normal bowel sounds. Absent: distended, tenderness, guarding, rebound, rigid Extremities exam: Present: normal inspection, full ROM, normal capillary refill. Absent: tenderness, pedal edema, joint swelling, calf tenderness Back exam: Present: normal inspection Neurological exam: Present: alert, oriented X3, CN II-XII intact Psychiatric exam: Present: normal affect, normal mood Skin exam: Present: warm, dry, intact, normal color. Absent: rash Course Vital Signs 05/05/22 09:54 Temperature 98.2 F Pulse Rate 116 H Respiratory 22 Rate Blood Pressure 118/85 O2 Sat by Pulse 96 Oximetry Medical Decision Making - Medical Decision Making 47-year-old female coming in for cough. Patient had x-rays performed in the ER. I interpreted the following; chest x-ray negative for consolidation or evidence of effusion. I reviewed the and discussed results with patient all questions addressed. Patient encouraged to increase fluid intake, take Tylenol Motrin as needed for symptoms, and custodial in place. Pt and prescription for benzonatate. She declined COVID antivirals. Return precautions discussed. Patient was discharged in stable condition. Case discussed with Dr. Liu. Disposition Clinical Impression: COVID-19 Disposition: HOME SELF-CARE Condition: Stable Instructions (If sedation given, give patient instructions): Upper Respiratory Infection (ED) Additional Instructions: Return to the nearest ED if symptoms of shortness of breath or cough worsens. Prescriptions: Benzonatate [Tessalon Perles] 100 mg PO TID PRN #15 capsule PRN Reason: Cough Is patient prescribed a controlled substance at d/c from ED?: No Referrals: None,Stated [Primary Care Provider] - 1-2 days Time of Disposition: 10:31
--- NOTE | 2022-05-05 10:27 | XR ---
EXAMINATION TYPE: XR chest 2V DATE OF EXAM: 05/05/2022 COMPARISON: Chest x-ray March 01, 2020 HISTORY: Cough. TECHNIQUE: Frontal and lateral views of the chest are obtained. FINDINGS: There is no suspicious focal air space opacity, pleural effusion, or pneumothorax seen cur rently. The cardiac silhouette size remains within normal limits. The osseous structures are intac t. IMPRESSION: No acute pulmonary process.
[2022-05-05] MEDS ORDERED: ACETAMINOPHEN TAB 325 MG TAB PO STA (10:37)
== END 2022-05-05 10:52 | disposition home or self-care (01) ==
LOC: EC 09:47
DX: U07.1 COVID-19 (principal); Z86.73 Personal history of transient ischemic attack (TIA), and cerebral infarction without residual deficits; Z87.891 Personal history of nicotine dependence; Z79.82 Long term (current) use of aspirin; Z79.899 Other long term (current) drug therapy
CPT/HCPCS: 71046; 99284

== ENCOUNTER 2023-05-23 23:04 | Emergency (ER) | payer BC ==
[2023-05-23] MEDS ORDERED: SODIUM CHLORIDE 0.9% 1,000 ML IV STA (23:11)
--- NOTE | 2023-05-23 23:13 | ED ---
Weakness HPI - General Chief complaint: Weakness Stated complaint: Weakness Time Seen by Provider: 05/23/23 23:11 Source: patient, EMS Mode of arrival: EMS Limitations: no limitations - History of Present Illness Initial comments: Rachel 48-year-old female with a history of MS who presents the ER today via ambulance for evaluation of generalized weakness. Patient reports she has been feeling all over weak throughout the day. Feels like she can't move her body. Reports she did have some mild headache and dizziness earlier than today. No fevers chills nausea vomiting or diarrhea. The patient states that she feels like her brain is getting fuzzy like if she stops talking her body stops moving and she stays awake but she is unable to move her body. She also states that she feels like her brain is fuzzy and she loses track of what she is thinking or saying. Patient also states she feels like she is getting zaps of movement in her arms and legs. Caregiver at bedside states that the patient has been in her usual state of health they recently went on occasion to [place] and a [employer] [facility]. Patient did well. Of note the patient did start Wellbutrin while on the trip, this medication was prescribed to counteract the low libido caused by the patient's other psychiatric medications. Patient seemed to do well with the medication while on the cruise. She seemed to be in her usual state of health throughout the day today. Caregiver does note that the patient's symptoms seem to be distractible and that if the patient or anyone in the room discusses her symptoms the patient will start having no symptoms. 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 MD Complaint: generalized weakness -: days(s) Location: generalized - Related Data Home Medications Medication Instructions Recorded Confirmed Aspirin EC [Ecotrin Low Dose] 81 mg PO DAILY 02/25/20 03/20/20 Atorvastatin [Lipitor] 80 mg PO HS 02/25/20 03/20/20 Citalopram Hydrobromide [CeleXA] 20 mg PO DAILY 02/25/20 03/20/20 Magnesium Gluconate [Magonate] 500 mg PO DAILY@1200 02/25/20 03/20/20 Ocrevos 1 dose IV Q180D 02/25/20 03/20/20 Pantoprazole Sodium [Protonix] 40 mg PO BID@0800,1200 02/25/20 03/20/20 Solu Medrol 1 dose IV DIRECTED 02/25/20 03/20/20 amLODIPine [Norvasc] 5 mg PO DAILY 02/25/20 03/20/20 clonazePAM [KlonoPIN] 0.5 mg PO BID 02/25/20 03/20/20 lisinopriL [Zestril] 20 mg PO BID 02/25/20 03/20/20 traZODone HCL [Desyrel] 100 mg PO HS 02/25/20 03/20/20 Benzonatate [Tessalon Perles] 200 mg PO TID PRN 03/20/20 03/20/20 Dismuzyme 1 tab PO TID 03/20/20 03/20/20 Ferrous Sulfate [Feosol] 325 mg PO Q48H 03/20/20 03/20/20 Fexofenadine HCl [Jesenia Allergy] 180 mg PO DAILY 03/20/20 03/20/20 Histoplex 1 tab PO BID 03/20/20 03/20/20 Ipratropium-Albuterol Nebulize 3 ml INHALATION RT-QID 03/20/20 03/20/20 [Duoneb 0.5 mg-3 mg/3 ml Soln] L.acidoph,Paracasei, B.lactis 1 cap PO BID 03/20/20 03/20/20 [Probiotic] Pro Dha Eye 1 tab PO BID 03/20/20 03/20/20 Sennosides [Senna] 8.6 mg PO DAILY 03/20/20 03/20/20 predniSONE See Taper PO DAILY 03/20/20 03/20/20 Previous Rx's Medication Instructions Recorded Fluconazole [Diflucan] 100 mg PO DAILY #14 tablet 03/05/20 Benzonatate [Tessalon Perles] 100 mg PO TID PRN #15 capsule 05/05/22 Allergies Allergy/AdvReac Type Severity Reaction Status Date / Time No Known Allergies Allergy Verified 05/05/22 09:57 Review of Systems ROS Statement: Those systems with pertinent positive or pertinent negative responses have been documented in the HPI. ROS Other: All systems not noted in ROS Statement are negative. 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 History of Any Multi-Drug Resistant Organisms: MRSA Date of last positivie culture/infection: 2010 MDRO Source:: right leg Past Surgical History: No Surgical Hx Reported Additional Past Surgical History / Comment(s): Dental surgery in June 2016 Past Anesthesia/Blood Transfusion Reactions: No Reported Reaction Past Psychological History: No Psychological Hx Reported Smoking Status: Former smoker Past Alcohol Use History: Rare Past Drug Use History: None Reported - Past Family History Mother Family Medical History: Hypertension Additional Family Medical History / Comment(s): Heart stents Father Family Medical History: Cancer, Hypertension Additional Family Medical History / Comment(s): esophageal and rectal CA Brother(s) Additional Family Medical History / Comment(s): 2 brothers 1 has MS and 1 has sarcoidosis Sister(s) Additional Family Medical History / Comment(s): Lupus, MS General Exam Limitations: no limitations General appearance: alert, anxious Head exam: Present: atraumatic, normocephalic Eye exam: Present: EOMI, other (Pupils are dilated but reactive) Neck exam: Present: full ROM Respiratory exam: Absent: respiratory distress Cardiovascular Exam: Present: regular rate, normal rhythm GI/Abdominal exam: Present: soft. Absent: distended Rectal exam: Present: deferred Extremities exam: Present: normal capillary refill. Absent: pedal edema Psychiatric exam: Present: other (Tearful, helpless, does not participate in exam) Skin exam: Present: warm, dry, intact Course Vital Signs 05/23/23 05/23/23 05/24/23 23:06 23:44 00:14 Temperature 98.7 F Pulse Rate 92 73 92 Respiratory 19 19 Rate Blood Pressure 135/104 145/81 130/99 O2 Sat by Pulse 97 95 96 Oximetry 05/24/23 05/24/23 01:42 03:00 Temperature Pulse Rate 89 89 Respiratory 19 19 Rate Blood Pressure 144/101 128/85 O2 Sat by Pulse 93 L 100 Oximetry EKG Findings - EKG Comments: EKG Findings:: EKG interpreted by me, EKG obtained due to complaint of generalized weakness, EKG obtained at 2322, rate is 86 rhythm is sinus with significant artifact, no acute ST elevation some mild ST depressions laterally no infarction. Medical Decision Making - Medical Decision Making Was pt. sent in by a medical professional or institution (JACOB Phillips, [employer]PERVISOR, urgent care, hospital, or skilled nursing...) When possible be specific @ -No Did you speak to anyone other than the patient for history (EMS, parent, family, police, friend...)? What history was obtained from this source @ -Yes, patient's caregiver at bedside Did you review nursing and triage notes (agree or disagree)? Why? @ -I reviewed and agree with nursing and triage notes Were old charts reviewed (outside hosp., previous admission, EMS record, old EKG, old radiological studies, urgent care reports/EKG's, skilled nursing records)? Report findings @ -Yes, previous ER visits Differential Diagnosis (chest pain, altered mental status, abdominal pain women, abdominal pain men, vaginal bleeding, weakness, fever, dyspnea, syncope, headache, dizziness, GI bleed, back pain, seizure, CVA, palpatations, mental health)? @ -Differential Weakness: Hypoglycemia, shock, sepsis, hyponatremia, anemia, infection, CA, ETOH, adverse medicine reaction, overdose, stroke, this is not meant to be an all-inclusive list. EKG interpreted by me (3pts min.). @ -As above X-rays interpreted by me (1pt min.). @ -No pneumonia CT interpreted by me (1pt min.). @ -None done U/S interpreted by me (1pt. min.). @ -None done What testing was considered but not performed or refused? (CT, X-rays, U/S, labs)? Why? @ -CT was considered however given that the symptoms are not consistent with stroke and given the patient's history I did not feel is worth getting radiation. We did discuss possible need for MRI which patient reports she can have completed outpatient What meds were considered but not given or refused? Why? @ -None Did you discuss the management of the patient with other professionals (professionals i.e. JACOB Phillips, [employer]PERVISOR, lab, RT, psych nurse, social sciences lecturer, personal computer specialist, teacher, ground intelligence officer, pillowcase maker)? Give summary @ -No Was smoking cessation discussed for >3mins.? @ -No Was critical care preformed (if so, how long)? @ -No Were there social determinants of health that impacted care today? How? (Homelessness, low income, unemployed, alcoholism, drug addiction, transportation, low edu. Level, literacy, decrease access to med. care, half-way, rehab)? @ -No Was there de-escalation of care discussed even if they declined (Discuss DNR or withdrawal of care, Hospice)? DNR status @ -No What co-morbidities impacted this encounter? (DM, HTN, Smoking, COPD, CAD, Cancer, CVA, ARF, Chemo, Hep., AIDS, mental health diagnosis, sleep apnea, morbid obesity)? @ -Previous CVA, legal blindness, obesity Was patient admitted / discharged? Hospital course, mention meds given and route, prescriptions, significant lab abnormalities, going to OR and other pertinent info. @ -Discharged The patient was seen and evaluated, history is obtained from the patient as well as caregiver at bedside. Patient reports generalized weakness, occasional inability to move her body, brain fog. Patient's workup here was negative I did discuss options for admission for evaluation by neurology versus transferred to [facility] to see her neurologist Dr.Jakob Lara however after Ativan patient reports she is feeling much better patient and caregiver comfortable with plan for discharge home and outpatient workup. They did contact her neurology office and leave a message and we'll contact again tomorrow with plan for follow-up. Undiagnosed new problem with uncertain prognosis? @ [N] Drug Therapy requiring intensive monitoring for toxicity (Heparin, Nitro, Insulin, Cardizem)? @ [N] Were any procedures done? @ [N] Diagnosis/symptom? @ Generalized weakness Acute, or Chronic, or Acute on Chronic? @ [defaul] Uncomplicated (without systemic symptoms) or Complicated (systemic symptoms)? @ [defaul] Side effects of treatment? @ [N] Exacerbation, Progression, or Severe Exacerbation? @ [N] Poses a threat to life or bodily function? How? (Chest pain, USA, CA, pneumonia, PE, COPD, DKA, ARF, appy, cholecystitis, CVA, Diverticulitis, Homicidal, Suicidal, threat to staff... and all critical care pts) @ [N] - Lab Data Result diagrams: 05/23/23 23:14 05/23/23 23:14 Lab Results 05/23/23 05/23/23 05/23/23 Range/Units 23:14 23:14 23:14 WBC 10.6 (3.8-10.6) k/uL RBC 5.20 (3.80-5.40) m/uL Hgb 16.1 H (11.4-16.0) gm/dL Hct 47.2 H (34.0-46.0) % MCV 90.6 (80.0-100.0) fL MCH 30.9 (25.0-35.0) pg MCHC 34.1 (31.0-37.0) g/dL RDW 13.3 (11.5-15.5) % Plt Count 329 (150-450) k/uL MPV 8.2 Neutrophils % 77 % Lymphocytes % 15 % Monocytes % 6 % Eosinophils % 1 % Basophils % 1 % Neutrophils # 8.1 H (1.3-7.7) k/uL Lymphocytes # 1.6 (1.0-4.8) k/uL Monocytes # 0.6 (0-1.0) k/uL Eosinophils # 0.1 (0-0.7) k/uL Basophils # 0.1 (0-0.2) k/uL PT 10.2 (10.0-12.5) sec INR 0.9 (<1.2) APTT 21.6 L (22.0-30.0) sec Sodium 137 (137-145) mmol/L Potassium 3.9 (3.5-5.1) mmol/L Chloride 104 (98-107) mmol/L Carbon Dioxide 18 L (22-30) mmol/L Anion Gap 15 mmol/L BUN 8 (7-17) mg/dL Creatinine 0.57 (0.52-1.04) mg/dL Est GFR (CKD-EPI)AfAm >90 (>60 ml/min/1.73 sqM) Est GFR (CKD-EPI)NonAf >90 (>60 ml/min/1.73 sqM) Glucose 117 H (74-99) mg/dL Plasma Lactic Acid Chas (0.7-2.0) mmol/L Calcium 10.2 (8.4-10.2) mg/dL Magnesium 1.9 (1.6-2.3) mg/dL Total Bilirubin 0.6 (0.2-1.3) mg/dL AST 31 (14-36) U/L ALT 30 (4-34) U/L Alkaline Phosphatase 107 (38-126) U/L Troponin I (0.000-0.034) ng/mL Total Protein 7.4 (6.3-8.2) g/dL Albumin 5.0 (3.5-5.0) g/dL TSH 2.590 (0.465-4.680) mIU/L Urine Color Urine Appearance (Clear) Urine pH (5.0-8.0) Ur Specific [place] (1.001-1.035) Urine Protein (Negative) Urine Glucose (UA) (Negative) Urine Ketones (Negative) Urine Blood (Negative) Urine Nitrite (Negative) Urine Bilirubin (Negative) Urine Urobilinogen (<2.0) mg/dL Ur Leukocyte Esterase (Negative) Urine RBC (0-5) /hpf Urine WBC (0-5) /hpf Urine Mucus (None) /hpf Influenza Type A (PCR) (Not Detectd) Influenza Type B (PCR) (Not Detectd) RSV (PCR) (Not Detectd) SARS-CoV-2 (PCR) (Not Detectd) 05/23/23 05/23/23 05/24/23 Range/Units 23:14 23:14 01:38 WBC (3.8-10.6) k/uL RBC (3.80-5.40) m/uL Hgb (11.4-16.0) gm/dL Hct (34.0-46.0) % MCV (80.0-100.0) fL MCH (25.0-35.0) pg MCHC (31.0-37.0) g/dL RDW (11.5-15.5) % Plt Count (150-450) k/uL MPV Neutrophils % % Lymphocytes % % Monocytes % % Eosinophils % % Basophils % % Neutrophils # (1.3-7.7) k/uL Lymphocytes # (1.0-4.8) k/uL Monocytes # (0-1.0) k/uL Eosinophils # (0-0.7) k/uL Basophils # (0-0.2) k/uL PT (10.0-12.5) sec INR (<1.2) APTT (22.0-30.0) sec Sodium (137-145) mmol/L Potassium (3.5-5.1) mmol/L Chloride (98-107) mmol/L Carbon Dioxide (22-30) mmol/L Anion Gap mmol/L BUN (7-17) mg/dL Creatinine (0.52-1.04) mg/dL Est GFR (CKD-EPI)AfAm (>60 ml/min/1.73 sqM) Est GFR (CKD-EPI)NonAf (>60 ml/min/1.73 sqM) Glucose (74-99) mg/dL Plasma Lactic Acid Chas 1.3 (0.7-2.0) mmol/L Calcium (8.4-10.2) mg/dL Magnesium (1.6-2.3) mg/dL Total Bilirubin (0.2-1.3) mg/dL AST (14-36) U/L ALT (4-34) U/L Alkaline Phosphatase (38-126) U/L Troponin I <0.012 (0.000-0.034) ng/mL Total Protein (6.3-8.2) g/dL Albumin (3.5-5.0) g/dL TSH (0.465-4.680) mIU/L Urine Color Colorless Urine Appearance Clear (Clear) Urine pH 7.0 (5.0-8.0) Ur Specific [place] 1.008 (1.001-1.035) Urine Protein Negative (Negative) Urine Glucose (UA) Negative (Negative) Urine Ketones 1+ H (Negative) Urine Blood Trace H (Negative) Urine Nitrite Negative (Negative) Urine Bilirubin Negative (Negative) Urine Urobilinogen <2.0 (<2.0) mg/dL Ur Leukocyte Esterase Negative (Negative) Urine RBC 1 (0-5) /hpf Urine WBC <1 (0-5) /hpf Urine Mucus Rare H (None) /hpf Influenza Type A (PCR) (Not Detectd) Influenza Type B (PCR) (Not Detectd) RSV (PCR) (Not Detectd) SARS-CoV-2 (PCR) (Not Detectd) 05/24/23 Range/Units 01:45 WBC (3.8-10.6) k/uL RBC (3.80-5.40) m/uL Hgb (11.4-16.0) gm/dL Hct (34.0-46.0) % MCV (80.0-100.0) fL MCH (25.0-35.0) pg MCHC (31.0-37.0) g/dL RDW (11.5-15.5) % Plt Count (150-450) k/uL MPV Neutrophils % % Lymphocytes % % Monocytes % % Eosinophils % % Basophils % % Neutrophils # (1.3-7.7) k/uL Lymphocytes # (1.0-4.8) k/uL Monocytes # (0-1.0) k/uL Eosinophils # (0-0.7) k/uL Basophils # (0-0.2) k/uL PT (10.0-12.5) sec INR (<1.2) APTT (22.0-30.0) sec Sodium (137-145) mmol/L Potassium (3.5-5.1) mmol/L Chloride (98-107) mmol/L Carbon Dioxide (22-30) mmol/L Anion Gap mmol/L BUN (7-17) mg/dL Creatinine (0.52-1.04) mg/dL Est GFR (CKD-EPI)AfAm (>60 ml/min/1.73 sqM) Est GFR (CKD-EPI)NonAf (>60 ml/min/1.73 sqM) Glucose (74-99) mg/dL Plasma Lactic Acid Chas (0.7-2.0) mmol/L Calcium (8.4-10.2) mg/dL Magnesium (1.6-2.3) mg/dL Total Bilirubin (0.2-1.3) mg/dL AST (14-36) U/L ALT (4-34) U/L Alkaline Phosphatase (38-126) U/L Troponin I (0.000-0.034) ng/mL Total Protein (6.3-8.2) g/dL Albumin (3.5-5.0) g/dL TSH (0.465-4.680) mIU/L Urine Color Urine Appearance (Clear) Urine pH (5.0-8.0) Ur Specific [place] (1.001-1.035) Urine Protein (Negative) Urine Glucose (UA) (Negative) Urine Ketones (Negative) Urine Blood (Negative) Urine Nitrite (Negative) Urine Bilirubin (Negative) Urine Urobilinogen (<2.0) mg/dL Ur Leukocyte Esterase (Negative) Urine RBC (0-5) /hpf Urine WBC (0-5) /hpf Urine Mucus (None) /hpf Influenza Type A (PCR) Not Detected (Not Detectd) Influenza Type B (PCR) Not Detected (Not Detectd) RSV (PCR) Not Detected (Not Detectd) SARS-CoV-2 (PCR) Not Detected (Not Detectd) Disposition Clinical Impression: Weakness Disposition: HOME SELF-CARE Condition: Stable Is patient prescribed a controlled substance at d/c from ED?: No Referrals: None,Stated [Primary Care Provider] - 1-2 days Artem Lara MD [REFERRING] - 1-2 days
[2023-05-23 23:17] VITALS: RESP 19; TEMP 98.7
[2023-05-23 23:35] LABS: Basophils # (A) 0.1 k/uL (0-0.2); Basophils % (A) 1 %; Eosinophils # (A) 0.1 k/uL (0-0.7); Eosinophils % (A) 1 %; HCT 47.2 % (34.0-46.0); HGB 16.1 gm/dL (11.4-16.0); Lymphocytes # (A) 1.6 k/uL (1.0-4.8); Lymphocytes % (A) 15 %; MCH 30.9 pg (25.0-35.0); MCHC 34.1 g/dL (31.0-37.0); MCV 90.6 fL (80.0-100.0); Mean Platelet Volume 8.2; Monocytes # (A) 0.6 k/uL (0-1.0); Monocytes % (A) 6 %; Neutrophils # (A) 8.1 k/uL (1.3-7.7); Neutrophils % (A) 77 %; Platelet Count 329 k/uL (150-450); RDW 13.3 % (11.5-15.5); WBC 10.6 k/uL (3.8-10.6)
[2023-05-23 23:50] LABS: INR 0.9 (<1.2); Prothrombin Time 10.2 sec (10.0-12.5)
[2023-05-23 23:56] LABS: Partial Thromboplastin Time 21.6 sec (22.0-30.0)
[2023-05-24 00:03] LABS: ALT 30 U/L (4-34); AST 31 U/L (14-36); African American GFR (CKD) >90 (>60 ml/min/1.73 sqM); Alkaline Phosphatase 107 U/L (38-126); Anion Gap 15 mmol/L; Blood Urea Nitrogen 8 mg/dL (7-17); Calcium 10.2 mg/dL (8.4-10.2); Carbon Dioxide 18 mmol/L (22-30); Chloride 104 mmol/L (98-107); Glucose 117 mg/dL (74-99); Magnesium 1.9 mg/dL (1.6-2.3); Non-African American GFR(CKD) >90 (>60 ml/min/1.73 sqM); Potassium 3.9 mmol/L (3.5-5.1); Sodium 137 mmol/L (137-145); Total Bilirubin 0.6 mg/dL (0.2-1.3); Total Protein 7.4 g/dL (6.3-8.2)
[2023-05-24] MEDS ORDERED: LORazepam 2 MG/ML INJ IV STA (01:06)
[2023-05-24 01:56] VITALS: PULSE 89
[2023-05-24 01:59] LABS: Appearance,Urine Clear (Clear); Bilirubin,Urine Negative (Negative); Blood,Urine Trace (Negative); Color,Urine Colorless; Glucose,Urine (UA) Negative (Negative); Ketones,Urine 1+ (Negative); Leukocyte Esterase,Urine Negative (Negative); Mucus,Urine Rare /hpf; Nitrite,Urine Negative (Negative); Protein,Urine Negative (Negative); RBC,Urine 1 /hpf (0-5); Specific Gravity,Urine 1.008 (1.001-1.035); Urobilinogen,Urine <2.0 mg/dL (<2.0); WBC,Urine <1 /hpf (0-5)
[2023-05-24 03:46] VITALS: BP 128/85
--- NOTE | 2023-05-24 07:33 | XR ---
EXAMINATION TYPE: XR chest 1V portable DATE OF EXAM: 05/23/2023 Comparison: 05/05/2022 Clinical History: 48-year-old female weakness Findings: Heart normal size. Aorta and pulmonary vasculature within normal limits. No consolidation or pleural effusion. Impression: No acute cardiopulmonary process.
== END 2023-05-24 03:48 | disposition home or self-care (01) ==
LOC: EC 23:04
DX: R53.1 Weakness (principal); Z20.822 Contact with and (suspected) exposure to COVID-19; Z86.73 Personal history of transient ischemic attack (TIA), and cerebral infarction without residual deficits; Z87.891 Personal history of nicotine dependence
CPT/HCPCS: 36415; 93005; 80053; 83605; 83735; 84443; 84484; 85025; 85610; 85730; 81001; 87636; 71045; 99285; 96374; 96361 ×2; J2060